=== PATIENT | female | born 1980 | race Two or more races ===

== ENCOUNTER 2024-07-15 08:40 | Emergency (ER) | payer MEDICAID, SELFPAY ==
[2024-07-15 09:07] VITALS: BP 113/75; PULSE 100; RESP 19; TEMP 37.4; O2SAT 99; BMI 31.1
--- NOTE | 2024-07-15 09:41 | EDNOTE_ITS ---
ED Skin Abcess FB-RME/HPI General Chief complaint: Skin/Abscess/Foreign Body Stated complaint: ABSCESS TO BUTTOCKS Time Seen by Provider: 07/15/24 09:02 Arrival date/time: 07/15/24 08:40 Limitations: no limitations RME / HPI RME / HPI narrative: 43-year-old female presents for evaluation of left-sided buttock pain. Patient reports persistent abscess at her left perirectal area for which she has been treated with x 3 rounds of antibiotics. She is currently on her second course of Kelfex following x1 course of Doxy x2 months ago. Patient reports intermittently taking sitz bath's at a friends house, which she states improves her symptoms. Patient denies fever, chills, abdominal pain, nausea, vomiting, chest pain, shortness of breath. MD complaint: abscess/boil Onset (ago): week(s) Tetanus up to date: yes Location: buttocks Severity: moderate Related Data Home Medications ?Medication ?Instructions ?Recorded ?Confirmed glimepiride 1 mg tablet (Amaryl) 1 mg PO QDAY #0 tabs 01/01/17 11/11/19 sitagliptin phosphate 100 mg 100 mg PO QDAY #0 tabs 01/01/17 11/11/19 tablet (Januvia) insulin glargine 100 unit/mL (3 80 unit subcut QDAY 10/08/18 11/11/19 mL) subcutaneous pen (Basaglar KwikPen U-100 Insulin) Previous Rx's ?Medication ?Instructions ?Recorded clindamycin HCl 300 mg capsule 300 mg PO TID 7 days #21 caps 07/15/24 ibuprofen 600 mg tablet 600 mg PO TID PRN pain #14 tabs 07/15/24 metronidazole 500 mg tablet 500 mg PO Q8H 7 days #21 tabs 07/15/24 Allergies Allergy/AdvReac Type Severity Reaction Status Date / Time pioglitazone [From Actos] Allergy Severe Swelling Verified 07/15/24 08:41 of Lip/Tongue/Throat latex Allergy Intermediate Itching Verified 07/15/24 08:41 metformin Allergy Intermediate Swelling Verified 07/15/24 08:41 Review of Systems Constitutional Constitutional: Denies chills, Denies excessive sweating, Denies fever(s), Denies night sweats and Denies weakness ENT Ears, Nose, Mouth, and Throat: Denies neck pain Cardiovascular Cardiovascular: Denies chest pain and Denies dyspnea Respiratory Respiratory: Denies cough and Denies dyspnea Gastrointestinal Gastrointestinal: Denies nausea and Denies vomiting Genitourinary Genitourinary: Denies dysuria and Denies hematuria Musculoskeletal Musculoskeletal: Denies back pain, Denies myalgias, Denies neck pain, Denies numbness and Denies tingling Integumentary/Breasts Skin/Breast: Reports change in pigmentation (Erythematous.), Reports furuncle (Perirectal lesion) and Reports skin pain Neurologic Neurologic: Denies numbness, Denies tingling and Denies weakness Endocrine Endocrine: Denies excessive sweating Past Medical History Past Medical History NEUROLOGIC: Negative Neurological Disorders CARDIAC: Positive Hypertension; Negative Cardiac Disorders or Congestive Heart Failure RESPIRATORY: Negative Chronic Obstructive Pulmonary Disease (COPD) or Asthma GASTROINTESTINAL: Positive Gastrointestinal Disorders and Gastroesophageal Reflux Disease GENITOURINARY: Negative Genitourinary Disorders or Renal Disease REPRODUCTIVE: Negative Pelvic Inflammatory Disease MUSCULOSKELETAL: Negative Musculoskeletal Disorders ENDOCRINE: Positive Endocrine Disorders and Diabetes Mellitus Type 2; Negative Diabetes Mellitus Type 1 HEMATOLOGIC: Positive Blood Disorders and Anemia; Negative Sickle Cell Disease OTHER HISTORY: Negative Autoimmune Disease, Anesthesia Reactions, Organ Transplant, MRSA or Clostridium Difficile Family History FAMILY HISTORY: Positive Family Cardiac Disorders; Negative Family Psychiatric Problems, Family Respiratory Disorders or Family Gastrointestinal Problems Surgical History SURGICAL: Positive Abdominal Surgery; Negative Cardiac Surgery, Ear Surgery, Nephrectomy, Joint Replacement, Neurologic Surgery, Mastectomy or Organ Transplant Social History SMOKING STATUS: Never smoker SUBSTANCE USE: does not use ED Exam General Limitations: Present no limitations General appearance: Present alert and in no apparent distress Head Head exam: Present atraumatic and normocephalic Eye Eye exam: Present normal appearance and EOMI ENT ENT exam: Present mucous membranes moist and normal external ear exam Neck Neck exam: Present normal inspection and full ROM Chest Chest inspection: Present normal inspection and symmetric chest wall rise Respiratory Respiratory exam: Present normal lung sounds bilaterally; Absent respiratory distress Cardiovascular Cardiovascular exam: Present regular rate and +S1 Abdominal Exam Abdominal exam: Present soft; Absent distention External exam: Present other (Erythema right perirectal region.) Extremities Exam Extremities exam: Present normal inspection and full ROM Back Exam Back exam: Present normal inspection and full ROM Neurological Exam Neurological exam: Present alert and normal gait Psychiatric Psychiatric exam: Present normal affect Expanded Skin Exam Type of lesion: Present abscess (Right sided perirectal abscess with surrounding erythema and tenderness to palpation. Indurated. No area of fluctuance.) Course Quality Measures none Orders Category Date Time Status Clindamycin [Cleocin] Med 07/15/24 09:34 Discontinued 300 mg PO X1 ONE Ketorolac Inj [Toradol Inj] Med 07/15/24 09:34 Discontinued 30 mg IM X1 ONE cefTRIAXone [Rocephin] 500 mg Med 07/15/24 09:43 Discontinued Lidocaine 1% 20 ml [Xylocaine 1% 20 ML] 1 ml IM X1 Vital Signs Vital signs: Vital Signs Temperature 99.4 F 07/15/24 09:07 Pulse Rate 100 07/15/24 09:07 Respiratory Rate 19 07/15/24 09:07 Blood Pressure 113/75 07/15/24 09:07 Pulse Oximetry (%) 99 07/15/24 09:07 Oxygen Delivery Method Room Air 07/15/24 09:07 Skin / Abscess / Foreign Body MDM Narrative MDM Narrative:: 43-year-old female presents for evaluation of perianall abscess. Patient has been on multiple courses of antibiotics, pointing towards possible antibiotic resistance. Vital signs significant for borderline tachycardia and fever. Physical exam showed indurated, erythematous perianal lesion without fluctuance. No crepitus and patient nontoxic-appearing, therefore less concern for gangrenous infection at this time. Given physical exam today incision changed was not performed using shared decision making with the patient as no area of fluctuant palpated. Patient nontoxic-appearing and does not meet SIRS criteria, therefore low concern for sepsis at this time. I discussed with the patient that she may require surgical debridement if her symptoms do not improve. Ultimately she was discharged on clindamycin and metronidazole for for perirectal abscess with plan to follow-up with her primary care on Thursday. Strict return precautions were provided. Patient data External records reviewed:: [facility] previous records Clinical information provided by:: patient Social determinants that could affect healthcare access:: none Patient has the following chronic illnesses:: Recurrent perirectal abscess, diabetes. How is presenting disease/condition affected by chronic disease/condition?: exacerbated by Evaluation data The following diagnostics were reviewed and interpreted by me:: other (specify) Lab and/or radiology exams considered but not ordered:: Considered not ordered. Interpretation Summary: Considered not ordered. Medications / Prescriptions Medications or Prescriptions considered but not ordered:: Rx given. Medication administrations:: Medication Administration History Discontinued Medications Clindamycin HCl (Clindamycin 150 Mg Capsule) 300 mg PO X1 ONE Stop: 07/15/24 09:35 Last Admin: 07/15/24 09:43 Dose: 300 mg Documented By: DIRK Ceftriaxone Sodium 500 mg/ (Lidocaine HCl 1 ml) 0 mg IM X1 ONE Stop: 07/15/24 09:44 Last Admin: 07/15/24 10:00 Dose: 500 mg Documented By: DIRK Ketorolac Tromethamine (Ketorolac Inj 60 Mg/2 Ml Vial) 30 mg IM X1 ONE Stop: 07/15/24 09:35 Last Admin: 07/15/24 09:42 Dose: 30 mg Documented By: DIRK Rx given. Consultations Consultation(s) initiated? (list below): No Diagnosis Skin/Abscess Differential Diagnosis: abscess of skin or subcutaneous tissue, cellulitis, contact dermatitis and other Most likely diagnosis given after review of the tests above:: perianal abcess. Admission Indicated Admission indicated?: not indicated Admission Request Was there a request for admission?: No Disposition Plan Disposition Plan: Discharge Discharge Attestation Discharge Attestation: The patient and all family members were given an opportunity to ask questions and understood the discharge instructions. Discharge instructions specifically effects, indications for sooner follow up or return to the emergency department, and the expected course of current diagnosis. Patient condition: Stable Discharge Plan Plan Patient Disposition: HOME (Self Care) Disposition Comment: stable Prescriptions/Referrals Prescriptions/Med Rec: New clindamycin HCl 300 mg capsule 300 mg PO TID 7 Days Qty: 21 0RF metronidazole 500 mg tablet 500 mg PO Q8H 7 Days Qty: 21 0RF ibuprofen 600 mg tablet 600 mg PO TID PRN (Reason: pain) Qty: 14 0RF No Action glimepiride [Amaryl] 1 MG tablet 1 mg PO QDAY Qty: 0 Januvia 100 MG tablet 100 mg PO QDAY Qty: 0 Basaglar KwikPen U-100 Insulin 100 unit/mL (3 mL) Insulin Pen 80 unit SUBCUT QDAY Problem List Clinical Impression: Cellulitis, Perianal abscess Patient/Caregiver Discharge Instructions Other Activity Instructions:: Stop Keflex. Start clindamycin and metronidazole 3 times daily for the next x 7 days. Use bedpan every 6 hours for sitz bath. Follow-up with primary care within the next 3 to 4 days for reevaluation. Education Materials: Understanding Perianal Abscess, ED Abscess Antibiotic ..., ED ABSCESS [facility]-Anal Abx only Print Language: Moz[place]ican Stand Alone Forms: Cande Award Info., Work/School Release, Patient Portal Info Letter PA/BANQUET ATTENDANT Supervising Physician PA/BANQUET ATTENDANT Supervising Physician: Dr. Reid
[2024-07-15] MEDS: KETOROLAC INJ 60 MG/2 ML VIAL 30 MG IM (09:42)
[2024-07-15] MEDS: CLINDAMYCIN 150 MG CAPSULE 300 MG PO (09:43)
[2024-07-15] MEDS: cefTRIAXone 500 MG, LIDOCAINE 1% 20 ML 1 ML IM (10:00)
== END 2024-07-15 10:04 | disposition home or self-care (01) ==
LOC: SERX 09:50
PROVIDERS: Emergency Provider Emergency Medicine; PCP Physician Assistant
DX: K61.0 Anal abscess (principal)
CPT/HCPCS: 96372; 99283; J0696; J1885; J3490; A9270

== ENCOUNTER 2024-07-20 13:14 | Inpatient (IN) | payer MEDICAID, SELFPAY ==
[2024-07-20] VITALS (16 sets, daily range): BP systolic 126–154; BP diastolic 68–88; PULSE 88–104; RESP 8–98; TEMP 36.6–37.2; O2SAT 97–100; BMI 29.9; BMI 28.3
--- NOTE | 2024-07-20 13:46 | PD.EDRME ---
Rapid Medical Screening Exam RME Arrival date/time: 07/20/24 13:14 43-year-old female who states has been noncompliant with her diabetes medication presents emergency department complains of infection to her buttock Chief Complaint: Nausea/Vomiting/Diarrhea Time Seen by Provider: 07/20/24 13:31 Vital signs: Vital Signs Temperature 98.5 F 07/20/24 13:37 Pulse Rate 100 07/20/24 13:37 Respiratory Rate 18 07/20/24 13:37 Blood Pressure 126/70 07/20/24 13:37 Pulse Oximetry (%) 99 07/20/24 13:37 Oxygen Delivery Method Room Air 07/20/24 13:37
[2024-07-20] MEDS: KETOROLAC INJ 30 MG/ML VIAL IM (13:49)
[2024-07-20] MEDS: ONDANSETRON ODT 4 MG TABRAP PO (13:49)
[2024-07-20] MEDS: HYDROcodone/APAP 5/325 TABLET 1 TAB PO (13:49)
[2024-07-20 14:21] LABS: Lactate (Lactic Acid) 2.4 mMol/L (0.4-2.0)
[2024-07-20 14:24] LABS: Basophils # (Auto) 0.1 Thou/mm3 (0.0-0.2); Basophils % (Auto) 0 % (0-2.5); Eosinophils % (Auto) 0 % (0-10); Hematocrit 40.1 % (36.0-46.0); Hemoglobin 13.4 g/dL (12.0-16.0); Immature Granulocytes % (Auto) 1 % (0-0); Immature Granulocytes Auto 0.23 Thou/mm3 (0.00-0.00); Lymphocytes # (Auto) 1.5 Thou/mm3 (1.0-4.8); Lymphocytes % (Auto) 8 % (10-50); Mean Corpuscular HGB Conc 33.4 g/dl (31.0-37.0); Mean Corpuscular Hemoglobin 29.3 pg (25.0-35.0); Mean Corpuscular Volume 88 fL (80-100); Monocytes % (Auto) 5 % (0-12); Neutrophils # (Auto) 15.7 Thou/mm3 (1.8-7.7); Neutrophils % (Auto) 85 % (37-80); Nucleated Red Blood Cell % 0 /100 WBC (0); Platelet Count 397 Thou/mm3 (140-440); RDW Standard Deviation 37.2 fL (36.4-46.3); Red Blood Count 4.58 Miln/mm3 (4.00-5.20); White Blood Count 18.4 Thou/mm3 (3.6-11.0)
[2024-07-20 14:55] LABS: Alanine Aminotransferase 10 U/L (10-49); Albumin, Serum 4.1 gm/dL (3.5-5.0); Albumin/Globulin Ratio 1.1 (1.2-2.2); Alkaline Phosphatase 115 U/L (46-116); Anion Gap 21 (7-16); BUN/Creatinine Ratio 10 Ratio (12-20); Bilirubin,Total 0.4 mg/dL (0.3-1.2); Blood Urea Nitrogen 12 mg/dL (9-23); Calcium 9.5 mg/dL (8.3-10.6); Calcium (Corrected) 9.5 mg/dL (8.5-10.1); Chloride 87 mMol/L (98-107); Creatinine (Component) 1.2 mg/dL (0.6-1.3); Estimated Creatinine Clearance 65.5 mL/min (>60); Globulin 3.6 gm/dL (2.3-3.5); Potassium 3.7 mMol/L (3.4-5.1); Procalcitonin 0.62 ng/ml (0.0-0.49); Sodium 125 mMol/L (136-145); Total Protein 7.7 gm/dL (5.7-8.2); eGFR 57 See Note
[2024-07-20 15:18] LABS: Aspartate Amino Transferase 10 U/L (0-34); Osmolality,Calculated 275 (275-295)
[2024-07-20 15:21] LABS: Glucose 527 mg/dL (74-106)
[2024-07-20 15:47] LABS: Collection Type, Urine Clean Catch
--- NOTE | 2024-07-20 15:51 | XR_ITS ---
Examination: CT pelvis with intravenous contrast. 2-D sagittal and coronal reconstructions. Date and time of exam:July 20, 2024 1723 hrs. Indications: Vomiting today, redness swelling and pain above the left buttock region beginning 4 days ago CTDI: vol (mGy) :9.87 DLP: (mGycm) : 347 Technique: Multiple 3 mm axial sections of the pelvis have been obtained with the 64 slice high resolution scanner. Intravenous administration 60 cc [id number] 2-D sagittal and coronal reconstructions. Low dose protocols were performed. One or more of the following dose reduction techniques were used; automated exposure control, adjustment of the mA and/or KV according to patient size, use of iterative reconstruction technique. Findings: Mildly fluid distended small bowel loops Intrauterine device satisfactory position Bladder intact No free fluid in the pelvis Left inferior posterior perianal abscess, axial image 130 coronal image 108, sagittal image 107, measuring 14 x 16 x 18 mm which communicates with fistulous tract to the anus Extensive adjacent cellulitis in the subcutaneous fat in the buttock region on the left extending to the intergluteal fold Negative for osteomyelitis Impression: 14 x 16 x 18 mm left inferior posterior perianal abscess with extensive cellulitis in the buttock region on the left
[2024-07-20] MEDS: SODIUM CHLORIDE 0.9% 1000 ML 1,000 ML 999 ML IV ×3 (15:53→16:41)
--- NOTE | 2024-07-20 15:56 | EDNOTE_ITS ---
ED General RME/HPI General Chief complaint: Nausea/Vomiting/Diarrhea Stated complaint: Vomiting X 4 days, abscess to buttocks Time Seen by Provider: 07/20/24 13:31 Arrival date/time: 07/20/24 13:14 RME / HPI RME / HPI narrative: RME: 07/20/24 13:14 43-year-old female who states has been noncompliant with her diabetes medication presents emergency department complains of infection to her buttock YAQUELIN HPI: 43-year-old female with a history of insulin-dependent diabetes is also been battling an abscess it has been growing on her left buttocks presents to the emergency department with generalized malaise as she has also been out of insulin for the last 2 weeks. Her blood sugars are unregistered well at home therefore she comes to emergency department. She was seen in the emergency department approximately 4 to 5 days ago and was told at this point the abscess was too hard to drain and was discharged on clindamycin and metronidazole. Related Data Home Medications ?Medication ?Instructions ?Recorded ?Confirmed glimepiride 1 mg tablet (Amaryl) 1 mg PO QDAY #0 tabs 01/01/17 11/11/19 sitagliptin phosphate 100 mg 100 mg PO QDAY #0 tabs 01/01/17 11/11/19 tablet (Januvia) insulin glargine 100 unit/mL (3 80 unit subcut QDAY 10/08/18 11/11/19 mL) subcutaneous pen (Basaglar KwikPen U-100 Insulin) Previous Rx's ?Medication ?Instructions ?Recorded clindamycin HCl 300 mg capsule 300 mg PO TID 7 days #21 caps 07/15/24 ibuprofen 600 mg tablet 600 mg PO TID PRN pain #14 tabs 07/15/24 metronidazole 500 mg tablet 500 mg PO Q8H 7 days #21 tabs 07/15/24 Allergies Allergy/AdvReac Type Severity Reaction Status Date / Time pioglitazone [From Actos] Allergy Severe Swelling Verified 07/15/24 08:41 of Lip/Tongue/Throat latex Allergy Intermediate Itching Verified 07/15/24 08:41 metformin Allergy Intermediate Swelling Verified 07/15/24 08:41 Review of Systems Review of Systems Systems Reviewed: All systems reviewed, normal except as documented ED Exam Narrative Physical exam: GENERAL APPEARANCE: AxOx4, moderately ill-appearing, moderate distress laying on her right side unable to lay flat due to the pain over her left gluteus HEENT: NC, AT. Mucous membranes dry. EOMI, clear conjunctiva, oropharynx clear. NECK: Supple without lymphadenopathy. No stiffness or restricted ROM. HEART: Normal rate and regular rhythm, normal S1/S1, no m/r/g LUNGS: CTAB, moving air well. No crackles or wheezes are heard. ABDOMEN: Soft, nontender, nondistended with good bowel sounds heard. BACK: No midline C/T/L spine pain or deformity, No CVAT, no obvious deformity. NEUROLOGICAL: Grossly nonfocal. Alert and oriented, moving all 4 extremities. CN not formally tested but appear grossly intact. Observed to ambulate with normal gait. Skin: Warm and dry without any rash, large area of induration over the left inferior gluteus extending towards the perineum and the labia majora on the left side. Skin is red, warm, and thickened. There are several patches of necrosis but also an opening/dehiscence approximately 3 cm from the anus with active drainage of yellow-green purulence. The purulence is foul-smelling. Course Course Course Narrative: Patient made clinically stable in the emergency department without acute decompensation. Reviewed all results, analysis, treatment plan and patient was amenable to admission. Patient admitted to the ICU in guarded condition. Quality Measures none Orders Category Date Time Status Bedside Blood Glucose STAT Care 07/20/24 16:[address] Screening NOW Care 07/20/24 15:51 Active Cutting And Creasing Press Operator STAT Care 07/20/24 16:45 Completed DKA Protocol QSHIFT Care 07/20/24 16:45 Completed Intake and Output Routine Care 07/20/24 16:45 Ordered Notify provider NEEDED Care 07/20/24 16:45 Active Consult to General Surgery Stat Cons 07/20/24 15:47 Ordered Consult to General Surgery Stat Cons 07/20/24 17:14 Ordered Referral Registered Dietitian Routine Cons 07/20/24 16:[address] pelvis w con Stat Exams 07/20/24 15:51 Completed Arterial Blood Gas Stat Lab 07/20/24 17:50 Completed Beta HCG,Quantitative Stat Lab 07/20/24 14:00 Completed Beta Hydroxybutyrate Stat Lab 07/20/24 16:57 Completed Blood Culture (Lab) Stat Lab 07/20/24 14:00 Received CBC Stat Lab 07/20/24 13:42 Completed CBC Stat Lab 07/20/24 16:57 Completed Comprehensive Metabolic Panel Stat Lab 07/20/24 14:00 Completed Comprehensive Metabolic Panel Stat Lab 07/20/24 16:57 Completed HCG Qualitative,Urine Stat Lab 07/20/24 15:40 Completed Lactate (Lactic Acid) Stat Lab 07/20/24 14:00 Completed Lactate (Lactic Acid) Stat Lab 07/20/24 16:57 Completed Lactic Acid, 3 HR Stat Lab 07/20/24 20:14 Completed Magnesium Stat Lab 07/20/24 16:57 Completed Misc Send Out* Stat Lab 07/20/24 16:57 Received Phosphorous Stat Lab 07/20/24 16:57 Completed Procalcitonin Stat Lab 07/20/24 14:00 Completed Urinalysis Stat Lab 07/20/24 15:40 Completed Urine Culture Stat Lab 07/20/24 15:40 Received Dextrose 50% Syr [D50w Syringe Abboject] Med 07/20/24 16:45 Active 25 ml IV PRNMRX1 PRN HYDROcodone*/APAP 5/325 [Fred 5/325] Med 07/20/24 13:42 Discontinued 1 tab PO X1 ONE Insulin Reg 100 Units/100 ml [Myxredlin] Med 07/20/24 15:23 Active 100 unit in 100 ml IV 0.1 unit/kg/hr Ketorolac Inj [Toradol Inj] Med 07/20/24 13:42 Discontinued 30 mg IM X1 ONE Morphine Inj Med 07/20/24 16:15 Discontinued 6 mg IV X1 ONE Ondansetron Odt [Zofran Odt] Med 07/20/24 13:42 Discontinued 4 mg PO X1 ONE Piper/Tazo 3.375 gm [Zosyn] Med 07/20/24 17:13 Discontinued 3.375 gm in 50 ml IV X1 Ringers Lactated 1000 ml [Lactated Ringers] 1,000 ml Med 07/20/24 16:45 Active Pot Chl Additive [KCl Additive] 20 meq IV 250 mls/hr Sodium Chloride 0.9% 1000 ml [Ns] 1,000 ml Med 07/20/24 15:23 Discontinued IV 999 mls/hr Sodium Chloride 0.9% 1000 ml [Ns] 1,000 ml Med 07/20/24 15:23 Discontinued IV 999 mls/hr Sodium Chloride 0.9% 1000 ml [Ns] 1,000 ml Med 07/20/24 16:37 Discontinued IV 999 mls/hr Vancomycin Inj 1,000 mg Med 07/20/24 15:47 Discontinued Sodium Chloride 0.9% 250 ml [Ns] 250 ml IV X1 Vital Signs Vital signs: Vital Signs Temperature 98.5 F 07/20/24 13:37 Pulse Rate 100 07/20/24 13:37 Respiratory Rate 18 07/20/24 13:37 Blood Pressure 126/70 07/20/24 13:37 Pulse Oximetry (%) 99 07/20/24 13:37 Oxygen Delivery Method Room Air 07/20/24 13:37 SpO2 99% on room air, not hypoxic MDM Patient data External records reviewed:: [facility] previous records (I reviewed ED visit on 07/15/2024) Clinical information provided by:: patient Social determinants that could affect healthcare access:: none Patient has the following chronic illnesses:: IDDM How is presenting disease/condition affected by chronic disease/condition?: e xacerbated by Evaluation data The following diagnostics were reviewed and interpreted by me:: lab results Lab and/or radiology exams considered but not ordered:: None Interpretation Summary: As noted above Medications Medications considered but not ordered:: None Medication administrations:: Medication Administration History Acetaminophen (Acetaminophen 325 Mg Tablet) 650 mg PO Q4HR PRN PRN Reason: PAIN SCALE 1-3 (mild Stop: 08/19/24 17:34 Acetaminophen (Acetaminophen Supp 650 Mg Supp) 650 mg WA Q4HR PRN PRN Reason: PAIN SCALE 1-3 (mild Stop: 08/19/24 17:34 Al Hydrox/Mg Hydrox/Simethicone (Mg Hyd/Al Hyd/Benjamin (Maalox Reg) Susp 30 Ml Udc) 30 ml PO Q4HR PRN PRN Reason: Heartburn or Upset Stomach Stop: 08/19/24 17:34 Dextrose (Dextrose 50%-Water Inj 50 Ml Syringe) 25 ml IV PRNMRX1 PRN PRN Reason: Blood Sugar - Low Dextrose (Dextrose 50%-Water Inj 50 Ml Syringe) 25 ml IV PRNMRX1 PRN PRN Reason: Blood Sugar - Low Heparin Sodium (Porcine) (Heparin Sod Inj 5000 Unit/Ml Vial) 5,000 unit SC BID FRANDY Stop: 08/03/24 20:59 Last Admin: 07/20/24 20:09 Dose: 5,000 unit Documented By: CLT Co-signed By: KEIRY Insulin Human Regular (Myxredlin) 100 unit in 100 mls @ 8.437 mls/hr IV .[id number] PRN; Protocol PRN Reason: PER PROTOCOL Stop: 08/19/24 15:22 Last Titration: 07/21/24 06:52 Dose: 0 unit/kg/hr, 0 mls/hr Documented By: CLT Co-signed By: GE Titration: 07/21/24 06:00 Dose: 0.1 unit/kg/hr, 8.437 mls/hr Documented By: CLT Co-signed By: AD Titration: 07/21/24 05:00 Dose: 0.05 unit/kg/hr, 4.218 mls/hr Documented By: CLT Co-signed By: SA Titration: 07/21/24 04:00 Dose: 0.1 unit/kg/hr, 8.437 mls/hr Documented By: CLT Co-signed By: AD Titration: 07/21/24 03:00 Dose: 0.05 unit/kg/hr, 4.218 mls/hr Documented By: CLT Co-signed By: AD Titration: 07/21/24 02:00 Dose: 0.1 unit/kg/hr, 8.437 mls/hr Documented By: CLT Co-signed By: AD Titration: 07/21/24 01:00 Dose: 0.05 unit/kg/hr, 4.218 mls/hr Documented By: CLT Co-signed By: BB Titration: 07/21/24 00:00 Dose: 0.1 unit/kg/hr, 8.437 mls/hr Documented By: CLT Co-signed By: BB Titration: 07/20/24 23:37 Dose: 0.1 unit/kg/hr, 8.437 mls/hr Documented By: CLT Co-signed By: BB Titration: 07/20/24 23:00 Dose: 0 unit/kg/hr, 0 mls/hr Documented By: CLT Co-signed By: AD Titration: 07/20/24 22:00 Dose: 0.05 unit/kg/hr, 4.218 mls/hr Documented By: CLT Co-signed By: AD Titration: 07/20/24 21:00 Dose: 0.05 unit/kg/hr, 4.218 mls/hr Documented By: CLT Co-signed By: CMN Titration: 07/20/24 20:00 Dose: 0.1 unit/kg/hr, 8.437 mls/hr Documented By: CLT Co-signed By: CMN Titration: 07/20/24 19:00 Dose: 0.1 unit/kg/hr, 8.437 mls/hr Documented By: CLT Co-signed By: CMN Titration: 07/20/24 18:00 Dose: 0.1 unit/kg/hr, 8.437 mls/hr Documented By: EF Co-signed By: GRANT Titration: 07/20/24 17:00 Dose: 0.1 unit/kg/hr, 8.437 mls/hr Documented By: EF Co-signed By: KM Admin: 07/20/24 16:00 Dose: 0.1 unit/kg/hr, 8.437 mls/hr Documented By: EF Co-signed By: ED Potassium Chloride 20 meq/ (Lactated Ringer's) 1,010 mls @ 250 mls/hr IV .Q4H3M PRN PRN Reason: K LEVEL 3.3 TO 5.3mM/L Stop: 08/19/24 16:44 Last Infusion: 07/21/24 06:00 Dose: 250 mls/hr Documented By: Infusion: 07/21/24 05:00 Dose: 0 mls/hr Documented By: Infusion: 07/21/24 04:00 Dose: 250 mls/hr Documented By: Infusion: 07/20/24 23:33 Dose: 0 mls/hr Documented By: Infusion: 07/20/24 23:00 Dose: 250 mls/hr Documented By: Infusion: 07/20/24 20:00 Dose: 0 mls/hr Documented By: Admin: 07/20/24 18:06 Dose: 250 mls/hr Documented By: EF Potassium Chloride (Kcl Ivpb) 10 meq in 100 mls @ 100 mls/hr IV .Q1H PRN PRN Reason: IF POTASSIUM LESS THAN 3.3 Stop: 08/19/24 17:34 Last Admin: 07/21/24 00:54 Dose: 100 mls/hr Documented By: Infusion: 07/20/24 23:40 Dose: Infused Documented By: Admin: 07/20/24 22:40 Dose: 100 mls/hr Documented By: CLT Magnesium Sulfate (Magnesium Sulfate Ivpb) 2 gm in 50 mls @ 25 mls/hr IV .Q2H PRN PRN Reason: PER DKA PROTOCOL Stop: 08/19/24 17:34 Last Infusion: 07/20/24 21:00 Dose: Infused Documented By: Admin: 07/20/24 18:26 Dose: 25 mls/hr Documented By: EF Dextrose/Lactated Ringer's (D5-Lr) 1,000 mls @ 250 mls/hr IV .Q4H PRN PRN Reason: PER PROTOCOL Stop: 08/19/24 17:34 Lactated Ringer's (Lactated Ringers) 1,000 mls @ 250 mls/hr IV .Q4H PRN PRN Reason: PER PROTOCOL Stop: 07/21/24 17:34 Potassium Chloride 40 meq/ (Lactated Ringer's) 1,020 mls @ 250 mls/hr IV .Q4H5M PRN PRN Reason: K LEVEL < 3.3 mM/L Stop: 08/19/24 17:34 Last Infusion: 07/21/24 04:00 Dose: 0 mls/hr Documented By: Infusion: 07/21/24 02:00 Dose: 250 mls/hr Documented By: Infusion: 07/21/24 01:05 Dose: 0 mls/hr Documented By: Admin: 07/20/24 23:29 Dose: 250 mls/hr Documented By: CLT Potassium Chloride 40 meq/ (Dextrose/Lactated Ringer's) 1,020 mls @ 250 mls/hr IV .Q4H5M PRN PRN Reason: K LEVEL < 3.3mM/L Stop: 08/19/24 17:34 Last Infusion: 07/21/24 02:00 Dose: 0 mls/hr Documented By: Admin: 07/21/24 01:04 Dose: 250 mls/hr Documented By: CLT Potassium Cl/Dextrose/Lact Ringer's (Kcl 20 Meq/L In D5-Lr) 20 meq in 1,000 mls @ 250 mls/hr IV .Q4H PRN PRN Reason: K LEVEL 3.3 TO 5.3 mM/L Stop: 08/19/24 17:34 Last Infusion: 07/21/24 06:00 Dose: 0 mls/hr Documented By: Infusion: 07/21/24 05:00 Dose: 250 mls/hr Documented By: Infusion: 07/21/24 04:00 Dose: 0 mls/hr Documented By: Infusion: 07/21/24 03:00 Dose: 250 mls/hr Documented By: Infusion: 07/20/24 23:00 Dose: 0 mls/hr Documented By: Admin: 07/20/24 21:05 Dose: 250 mls/hr Documented By: CLT Potassium Chloride (Kcl Ivpb) 10 meq in 100 mls @ 50 mls/hr IV PRN PRN PRN Reason: K LEVEL 3.3 to 5.3 & BG > 200 Stop: 08/19/24 17:34 Potassium Phosphate (Pot Phos 15 Mmol In Ns 250 Ml) 15 mmol in 250 mls @ 62.5 mls/hr IV PRN PRN PRN Reason: Phosphate <= 1mg/dL Stop: 08/19/24 17:34 Sodium Phosphate 15 mmol/ (Sodium Chloride) 255 mls @ 62.5 mls/hr IV .Q4H5M PRN PRN Reason: Phosphate <= 1mg/dL and K> than 5.3 Stop: 08/19/24 17:34 Piperacillin Sod/Tazobactam (Sod 3.375 gm/ Sodium Chloride) 100 mls @ 200 mls/hr IV Q6HR FRANDY Stop: 07/28/24 00:00 Last Admin: 07/21/24 05:13 Dose: 200 mls/hr Documented By: Infusion: 07/21/24 00:35 Dose: Infused Documented By: Admin: 07/21/24 00:05 Dose: 200 mls/hr Documented By: CLT Vancomycin/Sodium Chloride (Vancomycin/Ns 1 Gm Ivpb) 200 mls @ 120 mls/hr IV Q8HR FRANDY; Protocol Stop: 07/28/24 06:44 Last Admin: 07/21/24 07:50 Dose: Not Given Documented By: RM Non-Admin Reason: med not avail/rescheduled Vancomycin/Sodium Chloride (Vancomycin/Ns 1 Gm Ivpb) 200 mls @ 120 mls/hr IV X1 ONE; Protocol Stop: 07/21/24 10:39 Insulin Human Lispro (Insulin Lispro (Admelog) 1 Unit/0.01 Ml Unit) 0 unit SC Q6HR FRANDY; Protocol Stop: 08/20/24 11:59 Magnesium Hydroxide (Milk Of Magnesia Susp 30 Ml Udc) 30 ml PO QDAY PRN PRN Reason: CONSTIPATION Stop: 08/19/24 17:34 Metoclopramide HCl (Metoclopramide Inj 5 Mg/Ml Vial 2 Ml) 10 mg IVP Q6HR PRN; Protocol PRN Reason: Nausea Stop: 08/19/24 18:28 Last Admin: 07/21/24 02:02 Dose: 10 mg Documented By: Admin: 07/20/24 18:38 Dose: 10 mg Documented By: EF Morphine Sulfate (Morphine Sulf Inj 10 Mg/Ml Vial) 2 mg IVP Q4H PRN PRN Reason: PAIN SCALE 7-10 (Severe Stop: 07/25/24 17:34 Last Admin: 07/21/24 02:03 Dose: 2 mg Documented By: CLT Nitroglycerin (Nitroglycerin 0.4 Mg Subl Btl #25) 0.4 mg SL Q5MIN PRN PRN Reason: CHEST PAIN Ondansetron HCl (Ondansetron Inj 2 Mg/Ml Inj 2 Ml) 4 mg IV Q6HR PRN PRN Reason: NAUSEA OR VOMITING Stop: 08/19/24 17:34 Last Admin: 07/20/24 21:35 Dose: 4 mg Documented By: CLT Pharmacy Consult (Vancomycin Pharmacy To Dose 1 Each Each) 1 each IV QDAY FRANDY Stop: 08/20/24 08:59 Sodium Bicarbonate (Sodium Bicarb Inj 8.4% Syr 50 Ml Syringe) 50 ml IV PRN PRN PRN Reason: For ph <= to 7.0 Stop: 08/19/24 17:34 Discontinued Medications Hydrocodone Bitart/Acetaminophen (Hydrocodone/Apap 5/325 Tablet) 1 tab PO X1 ONE Stop: 07/20/24 13:43 Last Admin: 07/20/24 13:49 Dose: 1 tab Documented By: OA Sodium Chloride (Ns) 1,000 mls @ 999 mls/hr IV .Q1H1M ONE Stop: 07/20/24 16:23 Last Infusion: 07/20/24 16:55 Dose: Infused Documented By: Admin: 07/20/24 15:54 Dose: 999 mls/hr Documented By: EF Sodium Chloride (Ns) 1,000 mls @ 999 mls/hr IV .Q1H1M ONE Stop: 07/20/24 16:23 Last Infusion: 07/20/24 16:54 Dose: Infused Documented By: Admin: 07/20/24 15:53 Dose: 999 mls/hr Documented By: EF Vancomycin HCl 1,000 mg/ (Sodium Chloride) 250 mls @ 150 mls/hr IV X1 ONE Stop: 07/20/24 17:26 Last Infusion: 07/20/24 17:50 Dose: Infused Documented By: Admin: 07/20/24 16:13 Dose: 150 mls/hr Documented By: EF Sodium Chloride (Ns) 1,000 mls @ 999 mls/hr IV .Q1H1M ONE Stop: 07/20/24 17:37 Last Infusion: 07/20/24 17:49 Dose: Infused Documented By: Admin: 07/20/24 16:41 Dose: 999 mls/hr Documented By: EF Piperacillin/Tazobactam/Dextrose (Zosyn) 3.375 gm in 50 mls @ 100 mls/hr IV X1 ONE Stop: 07/20/24 17:42 Last Admin: 07/20/24 18:04 Dose: 100 mls/hr Documented By: EF Vancomycin/Sodium Chloride (Vancomycin/Ns 500 Mg Ivpb) 100 mls @ 120 mls/hr IV X1 ONE Stop: 07/20/24 19:04 Last Admin: 07/20/24 20:08 Dose: 120 mls/hr Documented By: MINDIT Insulin Glargine (Insulin Glargine (Lantus) 5 Unit/0.05 Ml (Per 5 Units)) 12 unit SC X1 ONE Stop: 07/21/24 04:50 Last Admin: 07/21/24 05:03 Dose: 12 unit Documented By: CLT Co-signed By: Insulin Glargine (Insulin Glargine (Lantus) 5 Unit/0.05 Ml (Per 5 Units)) 28 unit SC X1 ONE Stop: 07/21/24 05:12 Last Admin: 07/21/24 05:29 Dose: 28 unit Documented By: CLT Co-signed By: Insulin Human Lispro (Insulin Lispro (Admelog) 1 Unit/0.01 Ml Unit) 0 unit SC Q6HR FRANDY; Protocol Stop: 08/20/24 05:59 Ketorolac Tromethamine (Ketorolac Inj 30 Mg/Ml Vial) 30 mg IM X1 ONE Stop: 07/20/24 13:43 Last Admin: 07/20/24 13:49 Dose: 30 mg Documented By: OA Morphine Sulfate (Morphine Sulf Inj 10 Mg/Ml Vial) 6 mg IV X1 ONE Stop: 07/20/24 16:16 Last Admin: 07/20/24 16:13 Dose: 6 mg Documented By: EF Morphine Sulfate (Morphine Sulf Inj 4 Mg/Ml Vial) 1 mg IVP X1 ONE Stop: 07/21/24 04:53 Last Admin: 07/21/24 05:07 Dose: Not Given Documented By: CLT Non-Admin Reason: Cancelled by Provider Morphine Sulfate (Morphine Sulf Inj 10 Mg/Ml Vial) 1 mg IVP X1 ONE Stop: 07/21/24 05:07 Last Admin: 07/21/24 05:12 Dose: 1 mg Documented By: CLT Ondansetron HCl (Ondansetron Odt 4 Mg Tabrap) 4 mg PO X1 ONE; Protocol Stop: 07/20/24 13:43 Last Admin: 07/20/24 13:49 Dose: 4 mg Documented By: OA See above Consultations Consultation(s) initiated? (list below): Yes Consultation #1 (Physician, Specialty, Details): I spoke with surgeon Dr. Muse. Discussed patients PMHx, HPI, ED course, exam findings, labs results. He has evaluated the patient in the ED and does not believe it is qing gangrene. Time: 17:10 Consultation #2 (Physician, Specialty, Details): I spoke with circuit breaker supervisor Dr. Lee. Discussed patients PMHx, HPI, ED course, exam findings, labs, results. Requests starting the patient on Zosyn. Time: 17:17 Diagnosis Differential Diagnosis ED Complaint MDM: DKA, hyperglycemia, sepsis, cellulitis, abscess, Qing's Most likely diagnosis given after review of the tests above:: See below Admission Indicated Admission indicated?: indicated Explain why admission is indicated or not indicated:: As per narrative Admission Request Was there a request for admission?: Yes Admission Attestation Admission request attestation: Discussed case with [Dr. Lee] from critical care service regarding admission. Discussed patients ED course, exam findings, labs, and radiology results. The circuit breaker supervisor [agrees] to accept the patient for admission. Disposition Plan Disposition Plan: Admit Medical Decision Making [facility] Narrative [facility] Narrative: Ms. Benavides presents very ill with 2 critical issues. The first that she is in DKA secondary to noncompliance with her insulin for the last 2 weeks. Laboratory testing is significant for a metabolic acidosis with a significant anion gap. Her potassium returned within normal limits therefore was able to initiate an insulin drip immediately in the emergency department. She was also resuscitated aggressively with IV fluids. She will require admission to the intensive care unit for close monitoring and management of her metabolic status while she is on an insulin drip. Secondarily she has a large area of cellulitis but appears to be a draining gluteal/perianal abscess. There are also patches of necrotic tissue. The cellulitis is quite extensive and reaches even to her labia majora area medially. On examination, palpation and pressure along the perineum does not cause significant pain, I do not feel that this is consistent with a necrotizing/Qing's gangrene. General surgery was also consulted and I was bedside with Dr Monae to examine the region and we both agree this is not a picture consistent with Qing's gangrene, however she will need close wound care, debridement, and even possible further incision and drainage. He agrees to consult for definitive management of the abscess. She has been given IV antibiotics vancomycin and Zosyn for the cellulitis. Differential Diagnosis Differential Diagnosis: DKA, hyperglycemia, sepsis, cellulitis, abscess, Qing's Lab Data 07/20/24 16:57 07/21/24 04:47 Labs: Lab Results 07/20/24 07/20/24 07/20/24 Range/Units 13:42 14:00 15:40 WBC 18.4 H (3.6-11.0) Thou/mm3 RBC 4.58 (4.00-5.20) Miln/mm3 Hgb 13.4 (12.0-16.0) g/dL Hct 40.1 (36.0-46.0) % MCV 88 (80-100) fL MCH 29.3 (25.0-35.0) pg MCHC 33.4 (31.0-37.0) g/dl RDW Std Deviation 37.2 (36.4-46.3) fL Plt Count 397 (140-440) Thou/mm3 Neut % (Auto) 85 H (37-80) % Lymph % (Auto) 8 L (10-50) % [place] % (Auto) 5 (0-12) % Eos % (Auto) 0 (0-10) % Baso % (Auto) 0 (0-2.5) % Neut # (Auto) 15.7 H (1.8-7.7) Thou/mm3 Lymph # (Auto) 1.5 (1.0-4.8) Thou/mm3 [place] # (Auto) 1.0 H (0.0-0.8) Thou/mm3 Eos # (Auto) 0.0 (0.0-0.5) Thou/mm3 Baso # (Auto) 0.1 (0.0-0.2) Thou/mm3 Immature Gran # (Auto) 0.23 H (0.00-0.00) Thou/mm3 Absolute Nucleated RBC 0.00 (0.00-0.00) Thou/mm3 Immature Gran % 1 H (0-0) % Nucleated RBC % 0 (0) /100 WBC Sodium 125 L (136-145) mMol/L Potassium 3.7 (3.4-5.1) mMol/L Chloride 87 L (98-107) mMol/L Carbon Dioxide 17.0 L (20.0-31.0) mMol/L Anion Gap 21 H (7-16) BUN 12 (9-23) mg/dL Creatinine 1.2 (0.6-1.3) mg/dL Estim Creat Clear Calc 65.5 (>60) mL/min eGFR 57 L (60 - ) See Note BUN/Creatinine Ratio 10 L (12-20) Ratio Glucose 527 H* (74-106) mg/dL Estimated Ave Glu mg/dL Cancelled Hemoglobin A1c Cancelled Calculated Osmolality 275 (275-295) Lactic Acid 2.4 H (0.4-2.0) mMol/L Calcium 9.5 (8.3-10.6) mg/dL Corrected Calcium 9.5 (8.5-10.1) mg/dL Phosphorus (2.4-5.1) mg/dL Magnesium (1.6-2.6) mg/dL Total Bilirubin 0.4 (0.3-1.2) mg/dL AST 10 (0-34) U/L ALT 10 (10-49) U/L Alkaline Phosphatase 115 (46-116) U/L Total Protein 7.7 (5.7-8.2) gm/dL Albumin 4.1 (3.5-5.0) gm/dL Globulin 3.6 H (2.3-3.5) gm/dL Albumin/Globulin Ratio 1.1 L (1.2-2.2) Beta-Hydroxybutyrate/Acetoacetate (<0.6) mmol/L Procalcitonin 0.62 H (0.0-0.49) ng/ml Beta HCG, Quant 2 (<5.0) mIU/mL Ur Collection Type Clean Catch Urine Color Lt-Yellow (Lt Yel-Yel) Urine Clarity Clear (Clear/Hazy) Urine pH 5.0 (5.0-7.0) Ur Specific [place] 1.027 (1.001-1.035) Urine Protein Trace (Neg - Trace) Urine Glucose (UA) 4+ A (Negative) Urine Ketones 4+ A (Negative) Urine Blood 1+ A (Negative) Urine Nitrite Negative (Negative) Urine Bilirubin Negative (Negative) Urine Urobilinogen (Auto) Negative (0.0-1.0) mg/dL Ur Leukocyte Esterase Positive (Negative) Urine RBC 5 H (0-3) /hpf Urine WBC 13 H (0-5) /hpf Ur Squamous Epith Cells 4 (0-5) /hpf Urine Bacteria Rare (None) Hyaline Casts < 1 (0-1) /hpf Urine HCG, Qual Negative 07/20/24 Range/Units 16:57 WBC 18.1 H (3.6-11.0) Thou/mm3 RBC 4.03 (4.00-5.20) Miln/mm3 Hgb 11.9 L (12.0-16.0) g/dL Hct 34.4 L (36.0-46.0) % MCV 85 (80-100) fL MCH 29.5 (25.0-35.0) pg MCHC 34.6 (31.0-37.0) g/dl RDW Std Deviation 36.2 L (36.4-46.3) fL Plt Count 350 D (140-440) Thou/mm3 Neut % (Auto) 83 H (37-80) % Lymph % (Auto) 11 (10-50) % [place] % (Auto) 5 (0-12) % Eos % (Auto) 0 (0-10) % Baso % (Auto) 0 (0-2.5) % Neut # (Auto) 15.0 H (1.8-7.7) Thou/mm3 Lymph # (Auto) 2.0 (1.0-4.8) Thou/mm3 [place] # (Auto) 0.8 (0.0-0.8) Thou/mm3 Eos # (Auto) 0.0 (0.0-0.5) Thou/mm3 Baso # (Auto) 0.1 (0.0-0.2) Thou/mm3 Immature Gran # (Auto) 0.23 H (0.00-0.00) Thou/mm3 Absolute Nucleated RBC 0.00 (0.00-0.00) Thou/mm3 Immature Gran % 1 H (0-0) % Nucleated RBC % 0 (0) /100 WBC Sodium 128 L (136-145) mMol/L Potassium 3.3 L (3.4-5.1) mMol/L Chloride 97 L (98-107) mMol/L Carbon Dioxide 14.3 L* (20.0-31.0) mMol/L Anion Gap 17 H (7-16) BUN 10 (9-23) mg/dL Creatinine 1.0 (0.6-1.3) mg/dL Estim Creat Clear Calc 78.6 (>60) mL/min eGFR > 60 (60 - ) See Note BUN/Creatinine Ratio 10 L (12-20) Ratio Glucose 361 H D (74-106) mg/dL Estimated Ave Glu mg/dL Cancelled Hemoglobin A1c Cancelled Calculated Osmolality 271 L (275-295) Lactic Acid 1.8 (0.4-2.0) mMol/L Calcium 8.3 (8.3-10.6) mg/dL Corrected Calcium 8.7 (8.5-10.1) mg/dL Phosphorus 2.7 (2.4-5.1) mg/dL Magnesium 1.6 (1.6-2.6) mg/dL Total Bilirubin 0.4 (0.3-1.2) mg/dL AST 27 (0-34) U/L ALT 12 (10-49) U/L Alkaline Phosphatase 116 (46-116) U/L Total Protein 6.6 (5.7-8.2) gm/dL Albumin 3.5 D (3.5-5.0) gm/dL Globulin 3.1 (2.3-3.5) gm/dL Albumin/Globulin Ratio 1.1 L (1.2-2.2) Beta-Hydroxybutyrate/Acetoacetate 4.4 H (<0.6) mmol/L Procalcitonin (0.0-0.49) ng/ml Beta HCG, Quant (<5.0) mIU/mL Ur Collection Type Urine Color (Lt Yel-Yel) Urine Clarity (Clear/Hazy) Urine pH (5.0-7.0) Ur Specific [place] (1.001-1.035) Urine Protein (Neg - Trace) Urine Glucose (UA) (Negative) Urine Ketones (Negative) Urine Blood (Negative) Urine Nitrite (Negative) Urine Bilirubin (Negative) Urine Urobilinogen (Auto) (0.0-1.0) mg/dL Ur Leukocyte Esterase (Negative) Urine RBC (0-3) /hpf Urine WBC (0-5) /hpf Ur Squamous Epith Cells (0-5) /hpf Urine Bacteria (None) Hyaline Casts (0-1) /hpf Urine HCG, Qual Critical Care Time Critical Care Time Critical Care Time: Yes Total Critical Care Time (min.): 60 Attestation: Excluding billable procedures for the rapid response, analysis, management, deliberation with specialist, treatment, and documentation to vent the very possible risk of metabolic decompensation and/or . Discharge Plan Plan Patient Disposition: Admit Acute Care w/in Hospital Problem List Clinical Impression: Diabetic keto-acidosis, Perianal abscess, Cellulitis, gluteal
[2024-07-20] MEDS: INSULIN REG 100 UNITS/100 ML 100 UNIT/100 ML BAG 8.437 UNIT IV (16:00)
[2024-07-20 16:01] LABS: Bacteria,Urine Rare; Bilirubin,Urine Negative (Negative); Blood,Urine 1+ (Negative); Clarity,Urine Clear (Clear/Hazy); Color,Urine Lt-Yellow (Lt Yel-Yel); Glucose, Urine 4+ (Negative); Ketones,Urine 4+ (Negative); Leukocyte Esterase,Urine Positive (Negative); Nitrite,Urine Negative (Negative); Protein,Urine Trace (Neg - Trace); RBC,Urine 5 /hpf (0-3); Specific Gravity,Urine 1.027 (1.001-1.035); Squamous Epithelial Cell,Urine 4 /hpf (0-5); Urobilinogen,Urine Negative mg/dL (0.0-1.0); WBC,Urine 13 /hpf (0-5)
[2024-07-20 16:02] LABS: Hyaline Casts,Urine < 1 /hpf (0-1)
[2024-07-20] MEDS: MORPHINE SULF INJ 10 MG/ML VIAL 6 MG IV (16:13)
[2024-07-20] MEDS: Vancomycin Inj 1,000 MG in SODIUM CHLORIDE 0.9% 250 ML 250 ML 150 MG IV (16:13)
[2024-07-20 16:44] LABS: Beta HCG,Quantitative 2 mIU/mL (<5.0)
[2024-07-20 17:01] LABS: HCG Qualitative,Urine Negative
[2024-07-20 17:04] LABS: Lactate (Lactic Acid) 1.8 mMol/L (0.4-2.0)
--- NOTE | 2024-07-20 17:05 | PC.NURSE ---
dr pina at bedside
[2024-07-20 17:06] LABS: Basophils # (Auto) 0.1 Thou/mm3 (0.0-0.2); Basophils % (Auto) 0 % (0-2.5); Eosinophils % (Auto) 0 % (0-10); Hematocrit 34.4 % (36.0-46.0); Hemoglobin 11.9 g/dL (12.0-16.0); Immature Granulocytes % (Auto) 1 % (0-0); Immature Granulocytes Auto 0.23 Thou/mm3 (0.00-0.00); Lymphocytes % (Auto) 11 % (10-50); Mean Corpuscular HGB Conc 34.6 g/dl (31.0-37.0); Mean Corpuscular Hemoglobin 29.5 pg (25.0-35.0); Mean Corpuscular Volume 85 fL (80-100); Monocytes # (Auto) 0.8 Thou/mm3 (0.0-0.8); Monocytes % (Auto) 5 % (0-12); Neutrophils % (Auto) 83 % (37-80); Nucleated Red Blood Cell % 0 /100 WBC (0); Platelet Count 350 Thou/mm3 (140-440); RDW Standard Deviation 36.2 fL (36.4-46.3); Red Blood Count 4.03 Miln/mm3 (4.00-5.20); White Blood Count 18.1 Thou/mm3 (3.6-11.0)
[2024-07-20 17:11] LABS: Beta Hydroxybutyrate 4.4 mmol/L (<0.6)
[2024-07-20 17:19] LABS: Reflex Lactate? Y
[2024-07-20 17:30] LABS: Alanine Aminotransferase 12 U/L (10-49); Albumin, Serum 3.5 gm/dL (3.5-5.0); Albumin/Globulin Ratio 1.1 (1.2-2.2); Alkaline Phosphatase 116 U/L (46-116); Anion Gap 17 (7-16); Aspartate Amino Transferase 27 U/L (0-34); BUN/Creatinine Ratio 10 Ratio (12-20); Bilirubin,Total 0.4 mg/dL (0.3-1.2); Blood Urea Nitrogen 10 mg/dL (9-23); Calcium 8.3 mg/dL (8.3-10.6); Calcium (Corrected) 8.7 mg/dL (8.5-10.1); Chloride 97 mMol/L (98-107); Estimated Creatinine Clearance 78.6 mL/min (>60); Globulin 3.1 gm/dL (2.3-3.5); Glucose 361 mg/dL (74-106); Magnesium 1.6 mg/dL (1.6-2.6); Osmolality,Calculated 271 (275-295); Phosphorous 2.7 mg/dL (2.4-5.1); Potassium 3.3 mMol/L (3.4-5.1); Sodium 128 mMol/L (136-145); Total Protein 6.6 gm/dL (5.7-8.2); eGFR > 60 See Note
[2024-07-20 17:32] LABS: Carbon Dioxide 14.3 mMol/L (20.0-31.0)
--- NOTE | 2024-07-20 17:35 | XR_ITS ---
Examination: AP chest single view Technique: AP portable upright chest single view Exam date and time: July 20, 2024 1759 hrs. Comparison January 06, 2022 Indications: Onset shortness of breath today. Findings: The film is rotated RPO which accentuates the left perihilar markings Normal heart size No pulmonary edema or lobar pneumonia Impression: No lobar pneumonia or pulmonary edema
--- NOTE | 2024-07-20 17:41 | PC.NURSE ---
pharmacy called for potassium
--- NOTE | 2024-07-20 17:46 | EKG_ITS ---
[facility] Test Date: 2024-07-20 Pat Name: NEGRA COVINGTON Department: Room: - Gender: Female Residential Carpenter: : 1980 Requested By: Esequiel Herrera Order Number: [id number] Reading MD: Esequiel Herrera Measurements Intervals [place] Rate: 92 P: 61 PA: 157 QRS: 65 QRSD: 90 T: 55 QT: 366 QTc: 453 Interpretive Statements SINUS RHYTHM NONSPECIFIC T-WAVE ABNORMALITY Compared to ECG 04/07/2024 11:04:50 T-wave abnormality now present /store/S0/[id number].pdf
[2024-07-20 17:55] LABS: Base Excess -5 (-3-3); HCO3 19 mEq/L (20-26); Inspired Oxygen, FIO2 21 %; O2 Saturation 98 % (91-98); PCO2 32 mmHg (32.0-48.0); PO2 90 mmHg (83-108); pH, Arterial 7.39 (7.35-7.45)
[2024-07-20 17:56] LABS: Allen Test Performed/OK; Puncture Site Right Radial
[2024-07-20] MEDS: PIPER/TAZO 3.375 GM 3.375 GM/50 ML BAG IV (18:04)
[2024-07-20] MEDS: POT CHL ADDITIVE 20 MEQ in RINGERS LACTATED 1000 ML 1,000 ML 250 MEQ IV (18:06)
[2024-07-20] MEDS: Magnesium Sulfate 2 GM Ivpb 2 GM/50 ML BAG IV (18:26)
--- NOTE | 2024-07-20 18:31 | PD.SURCONS ---
HPI Consult details Consult date: 07/20/24 Reason for consultation narrative: Patient was seen in consultation because of cellulitis and necrosis of the skin over the left buttock History of present illness: History of present illness revealed that the patient has had this problem for the past 3 weeks. It started draining last Thursday and she came to the emergency room today. She was treated as an outpatient with antibiotics but did not improve. She also has poorly controlled diabetes. She has had a history of perianal abscess in the past in 2019 for which I performed incision and drainage Past Medical History Past Medical History NEUROLOGIC: Negative Neurological Disorders CARDIAC: Positive Hypertension; Negative Cardiac Disorders or Congestive Heart Failure RESPIRATORY: Negative Chronic Obstructive Pulmonary Disease (COPD) or Asthma GASTROINTESTINAL: Positive Gastrointestinal Disorders and Gastroesophageal Reflux Disease GENITOURINARY: Negative Genitourinary Disorders or Renal Disease REPRODUCTIVE: Negative Pelvic Inflammatory Disease MUSCULOSKELETAL: Negative Musculoskeletal Disorders ENDOCRINE: Positive Endocrine Disorders and Diabetes Mellitus Type 2; Negative Diabetes Mellitus Type 1 HEMATOLOGIC: Positive Blood Disorders and Anemia; Negative Sickle Cell Disease OTHER HISTORY: Negative Autoimmune Disease, Anesthesia Reactions, Organ Transplant, MRSA or Clostridium Difficile Family History FAMILY HISTORY: Positive Family Cardiac Disorders; Negative Family Psychiatric Problems, Family Respiratory Disorders or Family Gastrointestinal Problems Surgical History SURGICAL: Positive Abdominal Surgery; Negative Cardiac Surgery, Ear Surgery, Nephrectomy, Joint Replacement, Neurologic Surgery, Mastectomy or Organ Transplant Social History SMOKING STATUS: Never smoker SUBSTANCE USE: does not use Meds Home Medications and Allergies Home Medications ?Medication ?Instructions ?Recorded ?Confirmed ?Type glimepiride 1 mg tablet (Amaryl) 1 mg PO QDAY #0 tabs 01/01/17 11/11/19 History sitagliptin phosphate 100 mg 100 mg PO QDAY #0 tabs 01/01/17 11/11/19 History tablet (Januvia) insulin glargine 100 unit/mL (3 80 unit subcut QDAY 10/08/18 11/11/19 History mL) subcutaneous pen (Basaglar KwikPen U-100 Insulin) Allergies Allergy/AdvReac Type Severity Reaction Status Date / Time pioglitazone [From Actos] Allergy Severe Swelling Verified 07/15/24 08:41 of Lip/Tongue/Throat latex Allergy Intermediate Itching Verified 07/15/24 08:41 metformin Allergy Intermediate Swelling Verified 07/15/24 08:41 Exam Vital Signs Temp Pulse Resp BP Pulse Ox O2 Del Method 97.8 F 93 16 133/79 H 99 Room Air 07/20/24 17:00 07/20/24 18:00 07/20/24 18:00 07/20/24 18:00 07/20/24 18:00 07/20/24 18:00 Narrative Exam Physical examination revealed slightly obese female who is 5 foot 6 inches tall weighing 186 pounds with BMI of 30 Constitutional Constitutional: moderate distress Routine Abdominal Exam Comments: Examination of the left buttock revealed considerable cellulitis with couple of areas of necrotic skin. The cellulitis involves the entire left buttock extending medially towards the labia but not including the labia Results Results: Laboratory Laboratory Narrative: Patient's laboratory Showed WBC of 18,000 and glucose and 500s. Patient CO2 2 is 14 obviously due to acidosis Assessment & Plan Additional Assessment Additional comments: Impression: Poorly controlled diabetes with abscess and cellulitis over the left buttock Plan Plan: We shall arrange for debridement of this abscess under general anesthesia after her diabetes is controlled. Since she has considerable cellulitis I will treat her first with IV antibiotics and then plan surgery.
[2024-07-20] MEDS: METOCLOPRAMIDE INJ 5 MG/ML VIAL 2 ML 10 MG IVP (18:38)
--- NOTE | 2024-07-20 18:50 | ESHP_ITS ---
<Statement entered by Brittni Lee MD - 07/24/24 09:37> TOTAL CC TIME: 35 MIN I saw and evaluated the patient. I reviewed the resident?s note and agree with findings and plan as documented in the resident?s note. Upon my evaluation, this patient had a high probability of imminent or life- threatening deterioration due to DKA and perianal large abscess which required my direct attention, intervention, and personal management. This time is exclusive of time spent on procedures, which are documented separately if performed. will stabalize / resolve DKA w/ IVFs and insulin gtt - abscess will be drained by surgery after DKA resolves monitor renal function closely Documentation for date of: 07/20/24 HPI History of Present Illness History of present illness: 43 year old female patient with PMHx significant for IDDM- non-compliant with her medications, Cholecystectomy, and Perianal abscess history- presented to ED with complaints of Nausea, vomiting, abdominal pain, along complaints of left buttock pain for a few weeks. Patient reports pain became significant 6 days ago, she started noticing fluid draining down her left thigh, describes fluid as thick yellowish sticky, patient was seen by her pcp who prescribed her Abx (Clindamycin and Metronidazole) but her condition didn't improve, she also reports running out of her insulin a few weeks ago. At admission patient's vitals were noted for tachycardia with heart rate of 100, bedside glucose of 460, CBC was noted for WBC of 18, Hgb 12, CMP was noted for sodium of 128, potassium 3.3, chloride of 97, bicarb 14.3, anion gap of 17, glucose of 361, beta hydroxybutyrate 4.4, and a Pro-Cj of 0.60, UA noted for 4+ ketones and WBC of 13. EKG showed sinus rhythm with regular rate, no ST segment elevation or T wave abnormalities. 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 general surgery were consulted by ED physician, after evaluation of patient's condition general surgery recommended admitting patient for I&D following day after her DKA resolves. Review of Systems Review of Systems Systems Reviewed: All systems reviewed, normal except as documented Exam Vital Signs Temp Pulse Resp BP Pulse Ox O2 Del Method 97.8 F 93 16 133/79 H 99 Room Air 07/20/24 17:00 07/20/24 18:00 07/20/24 18:00 07/20/24 18:00 07/20/24 18:00 07/20/24 18:00 Narrative Exam General:Obese, laying in bed, in mild acute distress, answering questions appropriately, making appropriate eye contact HEENT: Normocephalic, atraumatic, EOMI, PERRLA, moist oral mucosa, normal dentition. Cardiac: Tachycardic, normal S1/S2, no murmurs. Lungs: Clear to auscultation with no wheezings or crackles, normal respiratory effort and rate. Abdomen: Soft, diffusly tinder, nondistended, positive bowel sounds in all quadrants. No guarding or rebound tenderness. Neuro: AAO to name, date of and place. CN II- XII intact, no focal motor deficit noted, BUE/BLE motor function and sensation intact and equal. Extremities: Normal to inspection except left gluteal region noted for 3 necrotic round areas and a fistula surfacing laterally, extensive erythema and tenderness noted on left medial gluteal region 6 x6 , no lower ext. edema, no cyanosis noted, peripheral pulses strong but feet cool to touch. Results: Labs 07/20/24 16:57 07/20/24 16:57 Labs: Short CBC 07/20/24 07/20/24 Range/Units 13:42 16:57 WBC 18.4 H 18.1 H (3.6-11.0) Thou/mm3 Hgb 13.4 11.9 L (12.0-16.0) g/dL Hct 40.1 34.4 L (36.0-46.0) % Plt Count 397 350 D (140-440) Thou/mm3 BMP 07/20/24 07/20/24 14:00 16:57 Sodium 125 L 128 L Potassium 3.7 3.3 L Chloride 87 L 97 L Carbon Dioxide 17.0 L 14.3 L* BUN 12 10 Creatinine 1.2 1.0 Glucose 527 H* 361 H D Calcium 9.5 8.3 Liver Function 07/20/24 07/20/24 Range/Units 14:00 16:57 Total Bilirubin 0.4 0.4 (0.3-1.2) mg/dL AST 10 27 (0-34) U/L ALT 10 12 (10-49) U/L Alkaline Phosphatase 115 116 (46-116) U/L Albumin 4.1 3.5 D (3.5-5.0) gm/dL Urine 07/20/24 Range/Units 15:40 Urine Color Lt-Yellow (Lt Yel-Yel) Urine Clarity Clear (Clear/Hazy) Urine pH 5.0 (5.0-7.0) Ur Specific [place] 1.027 (1.001-1.035) Urine Protein Trace (Neg - Trace) Urine Glucose (UA) 4+ A (Negative) ABG Interpretation ABG results: 07/20/24 17:50 ABG pH 7.39 ABG pCO2 32 ABG pO2 90 ABG HCO3 19 L ABG O2 Saturation 98 ABG Base Excess -5 L Quality Measures Quality Measures VTE prophylaxis Medications Home Medications and Allergies Home Medications ?Medication ?Instructions ?Recorded ?Confirmed ?Type glimepiride 1 mg tablet (Amaryl) 1 mg PO QDAY #0 tabs 01/01/17 11/11/19 History sitagliptin phosphate 100 mg 100 mg PO QDAY #0 tabs 01/01/17 11/11/19 History tablet (Januvia) insulin glargine 100 unit/mL (3 80 unit subcut QDAY 10/08/18 11/11/19 History mL) subcutaneous pen (Basaglar KwikPen U-100 Insulin) Allergies Allergy/AdvReac Type Severity Reaction Status Date / Time pioglitazone [From Actos] Allergy Severe Swelling Verified 07/15/24 08:41 of Lip/Tongue/Throat latex Allergy Intermediate Itching Verified 07/15/24 08:41 metformin Allergy Intermediate Swelling Verified 07/15/24 08:41 Visit Medications Acetaminophen (Acetaminophen 325 Mg Tablet) 650 mg PO Q4HR PRN PRN Reason: PAIN SCALE 1-3 (mild Stop: 08/19/24 17:34 Acetaminophen (Acetaminophen Supp 650 Mg Supp) 650 mg AR Q4HR PRN PRN Reason: PAIN SCALE 1-3 (mild Stop: 08/19/24 17:34 Al Hydrox/Mg Hydrox/Simethicone (Mg Hyd/Al Hyd/Benjamin (Maalox Reg) Susp 30 Ml Udc) 30 ml PO Q4HR PRN PRN Reason: Heartburn or Upset Stomach Stop: 08/19/24 17:34 Dextrose (Dextrose 50%-Water Inj 50 Ml Syringe) 25 ml IV PRNMRX1 PRN PRN Reason: Blood Sugar - Low Dextrose (Dextrose 50%-Water Inj 50 Ml Syringe) 25 ml IV PRNMRX1 PRN PRN Reason: Blood Sugar - Low Heparin Sodium (Porcine) (Heparin Sod Inj 5000 Unit/Ml Vial) 5,000 unit SC BID FRANDY Stop: 08/03/24 20:59 Insulin Human Regular (Myxredlin) 100 unit in 100 mls @ 8.437 mls/hr IV .[id number] PRN; Protocol PRN Reason: PER PROTOCOL Stop: 08/19/24 15:22 Last Titration: 07/20/24 18:00 Dose: 0.1 unit/kg/hr, 8.437 mls/hr Potassium Chloride 20 meq/ (Lactated Ringer's) 1,010 mls @ 250 mls/hr IV .Q4H3M PRN PRN Reason: K LEVEL 3.3 TO 5.3mM/L Stop: 08/19/24 16:44 Last Admin: 07/20/24 18:06 Dose: 250 mls/hr Potassium Chloride (Kcl Ivpb) 10 meq in 100 mls @ 100 mls/hr IV .Q1H PRN PRN Reason: IF POTASSIUM LESS THAN 3.3 Stop: 08/19/24 17:34 Magnesium Sulfate (Magnesium Sulfate Ivpb) 2 gm in 50 mls @ 25 mls/hr IV .Q2H PRN PRN Reason: PER DKA PROTOCOL Stop: 08/19/24 17:34 Last Admin: 07/20/24 18:26 Dose: 25 mls/hr Dextrose/Lactated Ringer's (D5-Lr) 1,000 mls @ 250 mls/hr IV .Q4H PRN PRN Reason: PER PROTOCOL Stop: 08/19/24 17:34 Lactated Ringer's (Lactated Ringers) 1,000 mls @ 250 mls/hr IV .Q4H PRN PRN Reason: PER PROTOCOL Stop: 07/21/24 17:34 Potassium Chloride 40 meq/ (Lactated Ringer's) 1,020 mls @ 250 mls/hr IV .Q4H5M PRN PRN Reason: K LEVEL < 3.3 mM/L Stop: 08/19/24 17:34 Potassium Chloride 40 meq/ (Dextrose/Lactated Ringer's) 1,020 mls @ 250 mls/hr IV .Q4H5M PRN PRN Reason: K LEVEL < 3.3mM/L Stop: 08/19/24 17:34 Potassium Cl/Dextrose/Lact Ringer's (Kcl 20 Meq/L In D5-Lr) 20 meq in 1,000 mls @ 250 mls/hr IV .Q4H PRN PRN Reason: K LEVEL 3.3 TO 5.3 mM/L Stop: 08/19/24 17:34 Potassium Chloride (Kcl Ivpb) 10 meq in 100 mls @ 50 mls/hr IV PRN PRN PRN Reason: K LEVEL 3.3 to 5.3 & BG > 200 Stop: 08/19/24 17:34 Potassium Phosphate (Pot Phos 15 Mmol In Ns 250 Ml) 15 mmol in 250 mls @ 62.5 mls/hr IV PRN PRN PRN Reason: Phosphate <= 1mg/dL Stop: 08/19/24 17:34 Sodium Phosphate 15 mmol/ (Sodium Chloride) 255 mls @ 62.5 mls/hr IV .Q4H5M PRN PRN Reason: Phosphate <= 1mg/dL and K> than 5.3 Stop: 08/19/24 17:34 Piperacillin Sod/Tazobactam (Sod 3.375 gm/ Sodium Chloride) 100 mls @ 200 mls/hr IV Q6HR FRANDY Stop: 07/28/24 00:00 Vancomycin/Sodium Chloride (Vancomycin/Ns 500 Mg Ivpb) 100 mls @ 120 mls/hr IV X1 ONE Stop: 07/20/24 19:04 Magnesium Hydroxide (Milk Of Magnesia Susp 30 Ml Udc) 30 ml PO QDAY PRN PRN Reason: CONSTIPATION Stop: 08/19/24 17:34 Metoclopramide HCl (Metoclopramide Inj 5 Mg/Ml Vial 2 Ml) 10 mg IVP Q6HR PRN; Protocol PRN Reason: Nausea Stop: 08/19/24 18:28 Last Admin: 07/20/24 18:38 Dose: 10 mg Morphine Sulfate (Morphine Sulf Inj 10 Mg/Ml Vial) 2 mg IVP Q4H PRN PRN Reason: PAIN SCALE 7-10 (Severe Stop: 07/25/24 17:34 Nitroglycerin (Nitroglycerin 0.4 Mg Subl Btl #25) 0.4 mg SL Q5MIN PRN PRN Reason: CHEST PAIN Ondansetron HCl (Ondansetron Inj 2 Mg/Ml Inj 2 Ml) 4 mg IV Q6HR PRN PRN Reason: NAUSEA OR VOMITING Stop: 08/19/24 17:34 Pharmacy Consult (Vancomycin Pharmacy To Dose 1 Each Each) 1 each IV QDAY FRANDY Stop: 08/20/24 08:59 Sodium Bicarbonate (Sodium Bicarb Inj 8.4% Syr 50 Ml Syringe) 50 ml IV PRN PRN PRN Reason: For ph <= to 7.0 Stop: 08/19/24 17:34 Discontinued Medications Hydrocodone Bitart/Acetaminophen (Hydrocodone/Apap 5/325 Tablet) 1 tab PO X1 ONE Stop: 07/20/24 13:43 Last Admin: 07/20/24 13:49 Dose: 1 tab Sodium Chloride (Ns) 1,000 mls @ 999 mls/hr IV .Q1H1M ONE Stop: 07/20/24 16:23 Last Infusion: 07/20/24 16:55 Dose: Infused Sodium Chloride (Ns) 1,000 mls @ 999 mls/hr IV .Q1H1M ONE Stop: 07/20/24 16:23 Last Infusion: 07/20/24 16:54 Dose: Infused Vancomycin HCl 1,000 mg/ (Sodium Chloride) 250 mls @ 150 mls/hr IV X1 ONE Stop: 07/20/24 17:26 Last Infusion: 07/20/24 17:50 Dose: Infused Sodium Chloride (Ns) 1,000 mls @ 999 mls/hr IV .Q1H1M ONE Stop: 07/20/24 17:37 Last Infusion: 07/20/24 17:49 Dose: Infused Piperacillin/Tazobactam/Dextrose (Zosyn) 3.375 gm in 50 mls @ 100 mls/hr IV X1 ONE Stop: 07/20/24 17:42 Last Admin: 07/20/24 18:04 Dose: 100 mls/hr Ketorolac Tromethamine (Ketorolac Inj 30 Mg/Ml Vial) 30 mg IM X1 ONE Stop: 07/20/24 13:43 Last Admin: 07/20/24 13:49 Dose: 30 mg Morphine Sulfate (Morphine Sulf Inj 10 Mg/Ml Vial) 6 mg IV X1 ONE Stop: 07/20/24 16:16 Last Admin: 07/20/24 16:13 Dose: 6 mg Ondansetron HCl (Ondansetron Odt 4 Mg Tabrap) 4 mg PO X1 ONE; Protocol Stop: 07/20/24 13:43 Last Admin: 07/20/24 13:49 Dose: 4 mg Assessment & Plan Plan 43 year old female patient with PMHx significant for IDDM- non-compliant with her medications, Cholecystectomy, and Perianal abscess history admitted for management of DKA, cellulitis, and perianal abscess. Neuro No active issues CVS #Hypertension and sinus tachycardia In setting of pain, mildly elevated with BP 150/76. Defer starting antihypertensive medication to PCP. Pulm No active issues GI #Nausea/vomiting/ abdominal pain In setting of DKA. Last BM on day of admission normal. Management in ENDO section. Renal #Electrolyte imbalance In setting of vomiting and decreased po intake. Fluids per DKA, continue to monitor renal panel q4h. Heme #Leukocytosis In setting of cellulitis #Normocytic anemia In setting of dilution, patient was given 2L of IVF, Continue to monitor and order tests as indicated. ID #Perianal abscess #Cellulitis #Pyuria- patient denies any symptoms. Patient started on Vancomycin and zosyn. Morphine Q2h as needed. F/U Bcx, Ucx and daily CBC. De-escalate Abx as warranted. F/U PT, PTT General surgery- Dr. Muse consulted, patient will be scheduled for debridment once DKA resolves. Endo #DKA #IDDM II A1c ordered but sent out (likely above 14) Patient given 2L of NS bolus at ED Patient started on 250cc/hr of lactated ringer. Patient started on Insulin drip Q1hr bedside glucose check. Q4hr renal panel. Metoclopromide q6 prn Replete electrolyte as needed. Carb consistent diet once tolerates. Diabetes education prior to discharge by hospitalist team. Skin/Musculoskeletal #Cellulitis of left buttock and necrotic wounds. Wound care consulted. DVT prophylaxis: Heparin SC Diet: carb consistent if tolerates, NPO after midnight. Lines: PIV. CODE STATUS: Full code Reason for hospitalization/disposition: DKA, Perianal abscess. Plan of care discussed with attending Dr. Rosa Taylor, PGY-3
[2024-07-20] MEDS: VANCOMYCIN/NS 500 MG IVPB 100 ML 120 MG IV (20:08)
[2024-07-20] MEDS: HEPARIN SOD INJ 5000 UNIT/ML VIAL SC (20:09)
[2024-07-20 20:28] LABS: Lactic Acid, 3 HR 2.1 mMol/L (0.4-2.0)
[2024-07-20] MEDS: KCL 20 mEq/L in D5-LR 20 MEQ/1,000 ML BAG 250 MEQ IV (21:05)
[2024-07-20] MEDS: ONDANSETRON INJ 2 MG/ML INJ 2 ML 4 MG IV (21:35)
[2024-07-20 22:12] LABS: Albumin, Serum 3.2 gm/dL (3.5-5.0); Anion Gap 8 (7-16); BUN/Creatinine Ratio 16 Ratio (12-20); Blood Urea Nitrogen 11 mg/dL (9-23); Calcium 8.5 mg/dL (8.3-10.6); Calcium (Corrected) 9.1 mg/dL (8.5-10.1); Carbon Dioxide 23.9 mMol/L (20.0-31.0); Chloride 102 mMol/L (98-107); Creatinine (Component) 0.7 mg/dL (0.6-1.3); Estimated Creatinine Clearance 109.2 mL/min (>60); Glucose 186 mg/dL (74-106); Magnesium 2.1 mg/dL (1.6-2.6); Osmolality,Calculated 272 (275-295); Phosphorous 1.6 mg/dL (2.4-5.1); Sodium 134 mMol/L (136-145); eGFR > 60 See Note
[2024-07-20] MEDS: POTASSIUM CHL 10 mEq IVPB 10 MEQ/100 ML BAG 100 MEQ IV (22:40)
--- NOTE | 2024-07-20 22:45 | PC.NURSE ---
K+ AT 3.0 DR CONNELL AWARE, ADDITIONAL K-RIDER INFUSING ALONG WITH SATNAM 20MEQ. VS STABLE AT THIS TIME
[2024-07-20] MEDS: POT CHL ADDITIVE 40 MEQ in RINGERS LACTATED 1000 ML 1,000 ML 250 MEQ IV (23:29)
[2024-07-21] VITALS (22 sets, daily range): BP systolic 104–145; BP diastolic 60–93; PULSE 88–114; RESP 12–99; TEMP 36.2–37.3; O2SAT 96–100; BMI 28.4; BMI 28.3
[2024-07-21] MEDS: PIPER/TAZO INJ 3.375 GM in SODIUM CHLORIDE 0.9% (P) 100 ML IV ×3 (00:05→11:15)
[2024-07-21] MEDS: POTASSIUM CHL 10 mEq IVPB 10 MEQ/100 ML BAG 100 MEQ IV (00:54)
[2024-07-21] MEDS: POT CHL ADDITIVE 40 MEQ in DEXTROSE 5%-LACTATED RINGERS 1,000 ML 250 MEQ IV (01:04)
[2024-07-21] MEDS: METOCLOPRAMIDE INJ 5 MG/ML VIAL 2 ML 10 MG IVP (02:02)
[2024-07-21] MEDS: MORPHINE SULF INJ 10 MG/ML VIAL 2 MG IVP ×2 (02:03→10:55)
[2024-07-21 02:26] LABS: Anion Gap 5 (7-16); BUN/Creatinine Ratio 16 Ratio (12-20); Blood Urea Nitrogen 11 mg/dL (9-23); Calcium 8.3 mg/dL (8.3-10.6); Calcium (Corrected) 9.1 mg/dL (8.5-10.1); Carbon Dioxide 23.7 mMol/L (20.0-31.0); Chloride 104 mMol/L (98-107); Creatinine (Component) 0.7 mg/dL (0.6-1.3); Estimated Creatinine Clearance 109.2 mL/min (>60); Glucose 215 mg/dL (74-106); Magnesium 1.9 mg/dL (1.6-2.6); Osmolality,Calculated 271 (275-295); Phosphorous 1.3 mg/dL (2.4-5.1); Potassium 4.1 mMol/L (3.4-5.1); Sodium 133 mMol/L (136-145); eGFR > 60 See Note
--- NOTE | 2024-07-21 03:25 | PC.NURSE ---
Dr. mena and Dr. Sierra made aware of anion gap closed twice.
[2024-07-21] MEDS: INSULIN GLARGINE (Lantus) 5 UNIT/0.05 ML (PER 5 UNITS) 12 UNIT SC (05:03)
[2024-07-21] MEDS: MORPHINE SULF INJ 10 MG/ML VIAL IVP (05:12)
[2024-07-21] MEDS: INSULIN GLARGINE (Lantus) 5 UNIT/0.05 ML (PER 5 UNITS) 28 UNIT SC (05:29)
[2024-07-21 06:14] LABS: INR 1.1 (0.9-1.3); Prothrombin Time 12.2 Seconds (9.0-12.2)
[2024-07-21 06:42] LABS: Misc Send Out* See Sep Rpt
[2024-07-21 06:43] LABS: Albumin, Serum 3.5 gm/dL (3.5-5.0); Anion Gap 7 (7-16); BUN/Creatinine Ratio 14 Ratio (12-20); Blood Urea Nitrogen 10 mg/dL (9-23); Calcium 8.6 mg/dL (8.3-10.6); Carbon Dioxide 23.9 mMol/L (20.0-31.0); Chloride 102 mMol/L (98-107); Creatinine (Component) 0.7 mg/dL (0.6-1.3); Estimated Creatinine Clearance 109.4 mL/min (>60); Glucose 180 mg/dL (74-106); Osmolality,Calculated 270 (275-295); Phosphorous 1.2 mg/dL (2.4-5.1); Potassium 3.8 mMol/L (3.4-5.1); Sodium 133 mMol/L (136-145); eGFR > 60 See Note
[2024-07-21] MEDS: VANCOMYCIN/NS 1 GM IVPB 200 ML IV ×3 (09:00→22:44)
[2024-07-21] MEDS: HEPARIN SOD INJ 5000 UNIT/ML VIAL SC ×2 (09:00→21:27)
[2024-07-21 10:06] LABS: Albumin, Serum 3.2 gm/dL (3.5-5.0); Anion Gap 7 (7-16); BUN/Creatinine Ratio 15 Ratio (12-20); Blood Urea Nitrogen 9 mg/dL (9-23); Calcium 8.3 mg/dL (8.3-10.6); Calcium (Corrected) 8.9 mg/dL (8.5-10.1); Carbon Dioxide 23.6 mMol/L (20.0-31.0); Chloride 102 mMol/L (98-107); Creatinine (Component) 0.6 mg/dL (0.6-1.3); Estimated Creatinine Clearance 127.6 mL/min (>60); Glucose 209 mg/dL (74-106); Magnesium 1.9 mg/dL (1.6-2.6); Osmolality,Calculated 271 (275-295); Phosphorous 1.4 mg/dL (2.4-5.1); Potassium 3.9 mMol/L (3.4-5.1); Sodium 133 mMol/L (136-145); eGFR > 60 See Note
--- NOTE | 2024-07-21 10:09 | PD.SURPROG ---
Documentation for date of: 07/21/24 Subjective Subjective Brief History: History of present illness revealed that the patient has had this problem for the past 3 weeks. It started draining last Thursday and she came to the emergency room today. She was treated as an outpatient with antibiotics but did not improve. She also has poorly controlled diabetes. She has had a history of perianal abscess in the past in 2019 for which I performed incision and drainage Narrative: The patient is feeling better with antibiotics but complains of abdominal pain and has not slept all night. She is not vomiting Exam Vital Signs Temp Pulse Resp BP Pulse Ox O2 Del Method 97.7 F 94 16 133/70 H 98 Room Air 07/21/24 08:00 07/21/24 09:00 07/21/24 09:00 07/21/24 09:00 07/21/24 09:00 07/21/24 09:00 Her vital signs are normal other than mild tachycardia Routine Abdominal Exam Comments: Examination of the left buttock revealed diminishing cellulitis Results Results: Laboratory Laboratory Narrative: Laboratory results are pending Results: Imaging Imaging narrative: CT scan performed yesterday showed some abscess on the left buttock in the perineum Assessment & Plan Assessment Additional comments: Impression: Abscess and necrosis of the skin left buttock Poorly controlled diabetes Plan Plan: Patient will require incision and drainage. However she wants to wait for another day because she is not feeling good. We could arrange it tomorrow as per the patient wishes.
[2024-07-21] MEDS: ONDANSETRON INJ 2 MG/ML INJ 2 ML 4 MG IV (10:55)
[2024-07-21] MEDS: INSULIN LISPRO (AdmeLOG) 1 UNIT/0.01 ML UNIT SC ×2 (11:15→21:32)
--- NOTE | 2024-07-21 11:49 | ESPR_ITS ---
Documentation for date of: 07/21/24 Subjective Subjective Interval history: 07/21/2024; patient was seen and examined by bedside, vital stable, continues to endorse mild abdominal tenderness and has purulent drainage out of abscess, no longer complains of nausea or vomiting and able to tolerate p.o. intake, patient was placed on n.p.o. after midnight for surgical debridement of perianal abscess/fistula repair pending resolution of DKA. Patient's anion gap closed multiple times with bicarb levels of 24, patient was transitioned to insulin sliding scale and started on 40 units of insulin glargine. Patient will be taken to the OR this p.m., continue patient on antibiotic therapy for cellulitis/perianal abscess on vancomycin/Zosyn. Follow-up blood cultures and abscess cultures, patient will be downgraded to floor and hospitalist team to resume care on 07/22/2024. Exam Vital Signs Temp Pulse Resp BP Pulse Ox O2 Del Method 97.7 F 90 18 133/70 H 98 Room Air 07/21/24 08:00 07/21/24 10:16 07/21/24 10:16 07/21/24 09:00 07/21/24 09:00 07/21/24 09:00 Narrative Exam General:Obese, laying in bed, in mild acute distress, answering questions appropriately, making appropriate eye contact HEENT: Normocephalic, atraumatic, EOMI, PERRLA, moist oral mucosa, normal dentition. Cardiac: Tachycardic, normal S1/S2, no murmurs. Lungs: Clear to auscultation with no wheezings or crackles, normal respiratory effort and rate. Abdomen: Soft, diffusly tinder, nondistended, positive bowel sounds in all quadrants. No guarding or rebound tenderness. Neuro: AAO to name, date of and place. CN II- XII intact, no focal motor deficit noted, BUE/BLE motor function and sensation intact and equal. Extremities: Normal to inspection except left gluteal region noted for 3 necrotic round areas and a fistula surfacing laterally, extensive erythema and tenderness noted on left medial gluteal region 6 x6 , no lower ext. edema, no cyanosis noted, peripheral pulses strong but feet cool to touch. Objective Labs 07/21/24 09:20 07/21/24 09:20 Labs: Laboratory Results - last 24 hr 07/20/24 07/20/24 07/20/24 13:42 14:00 15:40 WBC 18.4 H RBC 4.58 Hgb 13.4 Hct 40.1 MCV 88 MCH 29.3 MCHC 33.4 RDW Std Deviation 37.2 Plt Count 397 Neut % (Auto) 85 H Lymph % (Auto) 8 L [place] % (Auto) 5 Eos % (Auto) 0 Baso % (Auto) 0 Neut # (Auto) 15.7 H Lymph # (Auto) 1.5 [place] # (Auto) 1.0 H Eos # (Auto) 0.0 Baso # (Auto) 0.1 Immature Gran # (Auto) 0.23 H Absolute Nucleated RBC 0.00 Immature Gran % 1 H Nucleated RBC % 0 PT INR Puncture Site ABG pH ABG pCO2 ABG pO2 ABG HCO3 ABG O2 Saturation ABG Base Excess FiO2 Sodium 125 L Potassium 3.7 Chloride 87 L Carbon Dioxide 17.0 L Anion Gap 21 H BUN 12 Creatinine 1.2 Estim Creat Clear Calc 65.5 eGFR 57 L BUN/Creatinine Ratio 10 L Glucose 527 H* Estimated Ave Glu mg/dL Cancelled Hemoglobin A1c Cancelled Calculated Osmolality 275 Lactic Acid 2.4 H Calcium 9.5 Corrected Calcium 9.5 Phosphorus Magnesium Total Bilirubin 0.4 AST 10 ALT 10 Alkaline Phosphatase 115 Total Protein 7.7 Albumin 4.1 Globulin 3.6 H Albumin/Globulin Ratio 1.1 L Beta-Hydroxybutyrate/Acetoacetate Procalcitonin 0.62 H Beta HCG, Quant 2 Ur Collection Type Clean Catch Urine Color Lt-Yellow Urine Clarity Clear Urine pH 5.0 Ur Specific [place] 1.027 Urine Protein Trace Urine Glucose (UA) 4+ A Urine Ketones 4+ A Urine Blood 1+ A Urine Nitrite Negative Urine Bilirubin Negative Urine Urobilinogen (Auto) Negative Ur Leukocyte Esterase Positive Urine RBC 5 H Urine WBC 13 H Ur Squamous Epith Cells 4 Urine Bacteria Rare Hyaline Casts < 1 Urine HCG, Qual Negative 07/20/24 07/20/24 07/20/24 16:57 17:50 20:14 WBC 18.1 H RBC 4.03 Hgb 11.9 L Hct 34.4 L MCV 85 MCH 29.5 MCHC 34.6 RDW Std Deviation 36.2 L Plt Count 350 D Neut % (Auto) 83 H Lymph % (Auto) 11 [place] % (Auto) 5 Eos % (Auto) 0 Baso % (Auto) 0 Neut # (Auto) 15.0 H Lymph # (Auto) 2.0 [place] # (Auto) 0.8 Eos # (Auto) 0.0 Baso # (Auto) 0.1 Immature Gran # (Auto) 0.23 H Absolute Nucleated RBC 0.00 Immature Gran % 1 H Nucleated RBC % 0 PT INR Puncture Site Right Radial ABG pH 7.39 ABG pCO2 32 ABG pO2 90 ABG HCO3 19 L ABG O2 Saturation 98 ABG Base Excess -5 L FiO2 21 Sodium 128 L Potassium 3.3 L Chloride 97 L Carbon Dioxide 14.3 L* Anion Gap 17 H BUN 10 Creatinine 1.0 Estim Creat Clear Calc 78.6 eGFR > 60 BUN/Creatinine Ratio 10 L Glucose [address] Glu mg/dL Cancelled Hemoglobin A1c Cancelled Calculated Osmolality 271 L Lactic Acid 1.8 2.1 H Calcium 8.3 Corrected Calcium 8.7 Phosphorus 2.7 Magnesium 1.6 Total Bilirubin 0.4 AST 27 ALT 12 Alkaline Phosphatase 116 Total Protein 6.6 Albumin 3.5 D Globulin 3.1 Albumin/Globulin Ratio 1.1 L Beta-Hydroxybutyrate/Acetoacetate 4.4 H Procalcitonin Beta HCG, Quant Ur Collection Type Urine Color Urine Clarity Urine pH Ur Specific [place] Urine Protein Urine Glucose (UA) Urine Ketones Urine Blood Urine Nitrite Urine Bilirubin Urine Urobilinogen (Auto) Ur Leukocyte Esterase Urine RBC Urine WBC Ur Squamous Epith Cells Urine Bacteria Hyaline Casts Urine HCG, Qual 07/20/24 07/21/24 07/21/24 21:38 01:52 04:47 WBC RBC Hgb Hct MCV MCH MCHC RDW Std Deviation Plt Count Neut % (Auto) Lymph % (Auto) [place] % (Auto) Eos % (Auto) Baso % (Auto) Neut # (Auto) Lymph # (Auto) [place] # (Auto) Eos # (Auto) Baso # (Auto) Immature Gran # (Auto) Absolute Nucleated RBC Immature Gran % Nucleated RBC % PT 12.2 INR 1.1 Puncture Site ABG pH ABG pCO2 ABG pO2 ABG HCO3 ABG O2 Saturation ABG Base Excess FiO2 Sodium 134 L 133 L 133 L Potassium 3.0 L 4.1 D 3.8 Chloride 102 104 102 Carbon Dioxide 23.9 23.7 23.9 Anion Gap 8 5 L 7 BUN 11 11 10 Creatinine 0.7 0.7 0.7 Estim Creat Clear Calc 109.2 109.2 109.4 eGFR > 60 > 60 > 60 BUN/Creatinine Ratio 16 16 14 Glucose 186 H D [address] Glu mg/dL Hemoglobin A1c Calculated Osmolality 272 L 271 L 270 L Lactic Acid Calcium 8.5 8.3 8.6 Corrected Calcium 9.1 9.1 9.0 Phosphorus 1.6 L 1.3 L 1.2 L Magnesium 2.1 1.9 2.0 Total Bilirubin AST ALT Alkaline Phosphatase Total Protein Albumin 3.2 L 3.0 L 3.5 D Globulin Albumin/Globulin Ratio Beta-Hydroxybutyrate/Acetoacetate Procalcitonin Beta HCG, Quant Ur Collection Type Urine Color Urine Clarity Urine pH Ur Specific [place] Urine Protein Urine Glucose (UA) Urine Ketones Urine Blood Urine Nitrite Urine Bilirubin Urine Urobilinogen (Auto) Ur Leukocyte Esterase Urine RBC Urine WBC Ur Squamous Epith Cells Urine Bacteria Hyaline Casts Urine HCG, Qual 07/21/24 09:20 WBC RBC Hgb Hct MCV MCH MCHC RDW Std Deviation Plt Count Neut % (Auto) Lymph % (Auto) [place] % (Auto) Eos % (Auto) Baso % (Auto) Neut # (Auto) Lymph # (Auto) [place] # (Auto) Eos # (Auto) Baso # (Auto) Immature Gran # (Auto) Absolute Nucleated RBC Immature Gran % Nucleated RBC % PT INR Puncture Site ABG pH ABG pCO2 ABG pO2 ABG HCO3 ABG O2 Saturation ABG Base Excess FiO2 Sodium 133 L Potassium 3.9 Chloride 102 Carbon Dioxide 23.6 Anion Gap 7 BUN 9 Creatinine 0.6 Estim Creat Clear Calc 127.6 eGFR > 60 BUN/Creatinine Ratio [address]ucose [address] Glu mg/dL Hemoglobin A1c Calculated Osmolality 271 L Lactic Acid Calcium 8.3 Corrected Calcium 8.9 Phosphorus 1.4 L Magnesium 1.9 Total Bilirubin AST ALT Alkaline Phosphatase Total Protein Albumin 3.2 L Globulin Albumin/Globulin Ratio Beta-Hydroxybutyrate/Acetoacetate Procalcitonin Beta HCG, Quant Ur Collection Type Urine Color Urine Clarity Urine pH Ur Specific [place] Urine Protein Urine Glucose (UA) Urine Ketones Urine Blood Urine Nitrite Urine Bilirubin Urine Urobilinogen (Auto) Ur Leukocyte Esterase Urine RBC Urine WBC Ur Squamous Epith Cells Urine Bacteria Hyaline Casts Urine HCG, Qual ABG Interpretation ABG results: 07/20/24 17:50 ABG pH 7.39 ABG pCO2 32 ABG pO2 90 ABG HCO3 19 L ABG O2 Saturation 98 ABG Base Excess -5 L Quality Measures Quality Measures none Assessment & Plan Assessment Current Active Medications: Generic Name Dose Route Start Last Admin Trade Name Freq PRN Reason Stop Dose Admin Acetaminophen 650 mg 07/20/24 17:35 Acetaminophen 325 Mg Tablet PO 08/19/24 17:34 Q4HR PRN PAIN SCALE 1-3 (mild Acetaminophen 650 mg 07/20/24 17:35 Acetaminophen Supp 650 Mg Supp AK 08/19/24 17:34 Q4HR PRN PAIN SCALE 1-3 (mild Al Hydrox/Mg Hydrox/Simethicone 30 ml 07/20/24 17:35 Mg Hyd/Al Hyd/Benjamin (Maalox Reg) Susp 30 Ml Udc PO 08/19/24 17:34 Q4HR PRN Heartburn or Upset Stomach Heparin Sodium (Porcine) 5,000 unit 07/20/24 21:00 07/21/24 09:00 Heparin Sod Inj 5000 Unit/Ml Vial SC 08/03/24 20:59 5,000 unit BID FRANDY Administration Piperacillin Sod/Tazobactam 100 mls @ 200 mls/hr 07/21/24 00:00 07/21/24 11:15 Sod 3.375 gm/ Sodium Chloride IV 07/28/24 00:00 200 mls/hr Q6HR FRANDY Administration Vancomycin/Sodium Chloride 200 mls @ 120 mls/hr 07/21/24 06:45 07/21/24 07:50 Vancomycin/Ns 1 Gm Ivpb IV 07/28/24 06:44 Not Given Q8HR FRANDY Protocol Vancomycin/Sodium Chloride 200 mls @ 120 mls/hr 07/21/24 09:00 07/21/24 09:00 Vancomycin/Ns 1 Gm Ivpb IV 07/21/24 10:39 120 mls/hr X1 ONE Administration Protocol Insulin Human Lispro 0 unit 07/21/24 12:00 07/21/24 11:15 Insulin Lispro (Admelog) 1 Unit/0.01 Ml Unit SC 08/20/24 11:59 2 unit Q6HR FRANDY Administration Protocol Magnesium Hydroxide 30 ml 07/20/24 17:35 Milk Of Magnesia Susp 30 Ml Udc PO 08/19/24 17:34 QDAY PRN CONSTIPATION Metoclopramide HCl 10 mg 07/20/24 18:29 07/21/24 02:02 Metoclopramide Inj 5 Mg/Ml Vial 2 Ml IVP 08/19/24 18:28 10 mg Q6HR PRN Administration Nausea Protocol Morphine Sulfate 2 mg 07/20/24 17:35 07/21/24 10:55 Morphine Sulf Inj 10 Mg/Ml Vial IVP 07/25/24 17:34 2 mg Q4H PRN Administration PAIN SCALE 7-10 (Severe Ondansetron HCl 4 mg 07/20/24 17:35 07/21/24 10:55 Ondansetron Inj 2 Mg/Ml Inj 2 Ml IV 08/19/24 17:34 4 mg Q6HR PRN Administration NAUSEA OR VOMITING Pharmacy Consult 1 each 07/21/24 09:00 07/21/24 08:04 Vancomycin Pharmacy To Dose 1 Each Each IV 08/20/24 08:59 Not Given QDAY FRANDY Plan 43 year old female patient with PMHx significant for IDDM- non-compliant with her medications, Cholecystectomy, and Perianal abscess history admitted for management of DKA, cellulitis, and perianal abscess. 07/21/2024; patient was seen and examined by bedside, vital stable, continues to endorse mild abdominal tenderness and has purulent drainage out of abscess, no longer complains of nausea or vomiting and able to tolerate p.o. intake, patient was placed on n.p.o. after midnight for surgical debridement of perianal abscess/fistula repair pending resolution of DKA. Patient's anion gap closed multiple times with bicarb levels of 24, patient was transitioned to insulin sliding scale and started on 40 units of insulin glargine. Patient will be taken to the OR this p.m., continue patient on antibiotic therapy for cellulitis/perianal abscess on vancomycin/Zosyn. Follow-up blood cultures and abscess cultures, patient will be downgraded to floor and hospitalist team to resume care on 07/22/2024. Neuro No active issues CVS #Hypertension and sinus tachycardia----Resolved. In setting of pain, mildly elevated with BP 150/76. Defer starting antihypertensive medication to PCP. Pulm No active issues GI #Nausea/vomiting/ abdominal pain----Resolved. In setting of DKA. Last BM on day of admission normal. Management in ENDO section. Renal #Electrolyte imbalance In setting of vomiting and decreased po intake. Fluids per DKA, continue to monitor renal panel q4h. Heme #Leukocytosis----Improving In setting of cellulitis #Normocytic anemia In setting of dilution, patient was given 2L of IVF, Continue to monitor and order tests as indicated. ID #Perianal abscess #Cellulitis #Pyuria- patient denies any symptoms. Patient started on Vancomycin and zosyn. Morphine Q2h as needed. F/U Bcx, Ucx and daily CBC. De-escalate Abx as warranted. F/U PT, PTT General surgery- Dr. Muse consulted, patient will be scheduled for debridment once DKA resolves. Endo #DKA----Resolved. #IDDM II A1c ordered but sent out (likely above 14) Carb consistent diet once tolerates. Diabetes education prior to discharge by hospitalist team. Skin/Musculoskeletal #Cellulitis of left buttock and necrotic wounds. Wound care consulted. DVT prophylaxis: Heparin SC Diet: carb consistent after OR Lines: PIV. CODE STATUS: Full code Reason for hospitalization/disposition: DKA, Perianal abscess. Plan of care discussed with attending Dr. J Luis Taylor, PGY-3 Attending Provider Attestation/Addendum Patient seen and examined. Discussed with residents. In brief this is a 43-year-old female admitted to the ICU for DKA. Patient was placed on DKA protocol and started on insulin drip. She was transitioned to subcu insulin this morning. She remains n.p.o. for possible surgical intervention. At time of presentation she was noted to have very large abscess with cellulitic changes over her left buttock region. CT was obtained which did not show any air however did not seem to show a fistulous tract which connected with her anus. She was currently on IV antibiotics. She was seen by surgery. She will require I&D with debridement. She is n.p.o. Today she declined intervention as she states she needs to rest. She is currently stable and off of the insulin drip and therefore able to be downgraded. Case discussed with ICU team and surgery Labs, imaging and records reviewed ~40min required for eval, exam, review, intervention, discussion and formulation of POC
[2024-07-21 12:20] LABS: Lactate (Lactic Acid) 0.8 mMol/L (0.4-2.0)
[2024-07-21 13:37] LABS: Basophils % (Auto) 0 % (0-2.5); Eosinophils % (Auto) 0 % (0-10); Hematocrit 35.1 % (36.0-46.0); Hemoglobin 11.9 g/dL (12.0-16.0); Immature Granulocytes % (Auto) 1 % (0-0); Immature Granulocytes Auto 0.15 Thou/mm3 (0.00-0.00); Lymphocytes # (Auto) 1.7 Thou/mm3 (1.0-4.8); Lymphocytes % (Auto) 13 % (10-50); Mean Corpuscular HGB Conc 33.9 g/dl (31.0-37.0); Mean Corpuscular Hemoglobin 29.2 pg (25.0-35.0); Mean Corpuscular Volume 86 fL (80-100); Monocytes % (Auto) 7 % (0-12); Neutrophils # (Auto) 10.6 Thou/mm3 (1.8-7.7); Neutrophils % (Auto) 79 % (37-80); Nucleated Red Blood Cell % 0 /100 WBC (0); Platelet Count 385 Thou/mm3 (140-440); RDW Standard Deviation 37.1 fL (36.4-46.3); Red Blood Count 4.07 Miln/mm3 (4.00-5.20); White Blood Count 13.5 Thou/mm3 (3.6-11.0)
--- NOTE | 2024-07-21 16:13 | PD.RESEVENT ---
Documentation for date of: 07/21/24 Event Note Event Note: 43 y/o F with PMhx of insulin dependent diabetes, Cholecystectomy, and Perianal abscess history- presented to ED with complaints of Nausea, vomiting, abdominal pain, along complaints of left buttock pain for a few weeks. Patient noticed some fluid draining down her leg went to her PCP and was prescribed some antibiotics but did not improve. Patient also had run out of her insulin for a few weeks and was admitted to the ICU for DKA. 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 I&D was planned by general surgery once DKA resolved. Patient scheduled today for I&D by general surgeon, Dr. Lr. Hospitalist team will resume care of patient on 07/22/2024. Case discussed with my senior Dr. Martino PGY-2 Mehrdad Linares MD PGY-1
--- NOTE | 2024-07-21 18:32 | SUR.PHASEI ---
Pt. arrived to recovery via gurney, eyes closed, responds to verbal commands, VSS, no c/o pain or nausea at this time, lung sounds clear, equal expansion pura., pt. receiving 6 liters 02 via oxymask, dressing to left medial buttock, packing, 1/2 inch iodoform, fluffs, abd pad and mesh underwear in place, small amount of bright red blood on fluffs. Report received from Dr. Garrison and Ratna LAUGHLIN.
--- NOTE | 2024-07-21 18:34 | PD.SUROPNT ---
Date of Procedure 07/21/24 Post Op Diagnosis Same Procedure Incision and drainage of the 4 abscesses left buttock Findings Patient is found to have necrotic skin over the left buttock in 4 places on therefore required I&D of the left buttock Procedure Description Of the patient was brought to the operating room she was given LMA then turned to the right lateral position. Then her left breast buttock was washed with ChloraPrep solution draped in a sterile manner. Timeout was performed. Then I started cutting of the necrotic tissue over the left buttock in 4 places each one of them measuring about 4 cm in diameter 2 of them measuring about 5 cm in diameter. This abscess was drained and cultures were obtained. Then necrosis of underneath was cut out till grayish tissues were removed. Wound was then irrigated with saline solution. I used a 15 blade knife to cut this necrotic tissue until healthy pink tissue was seen underneath. Bleeding points were controlled with cautery and some of them were suture-ligated with 3-0 chromic. Then the wound was packed with half an inch iodoform packing and fluffs and dressing was applied with tape. Anesthesia other (General LMA) Pathology / specimen None Estimated Blood Loss 100 Surgeon Be Monae MD Surgical Staff Operation Date: 07/21/24 13:15 Case Staff Anesthesiologist: Norman Garrison RN First Assistant: Jerri Cummings
[2024-07-21] MEDS: MORPHINE SULF INJ 10 MG/ML VIAL 3 MG IV (18:56)
--- NOTE | 2024-07-21 19:06 | SUR.PHASEI ---
Provided pt. with ice chips, tolerating well.
--- NOTE | 2024-07-21 19:11 | SUR.PHASEI ---
Called and gave report on pt. s/p surgery to Corinne LAUGHLIN on M/S unit.
--- NOTE | 2024-07-21 19:20 | SUR.PHASEI ---
Pt. transferred to room 358 via JONATHAN colbert, no c/o pain or nausea at this time, dressing to left medial buttock has small amount of bright red blood on fluffs, IVs flushed and patent, Corinne LAUGHLIN assumed care of pt.
[2024-07-21 22:24] LABS: Vancomycin,Trough 10.5 mcg/mL (5.0-10.0)
--- NOTE | 2024-07-21 22:32 | PC.NURSE ---
Called [facility] to bring Vancomycin 1 gm, med not available on [facility] floor.
[2024-07-22] VITALS (8 sets, daily range): BP systolic 111–141; BP diastolic 67–76; PULSE 84–92; RESP 17–97; TEMP 36.1–36.9; O2SAT 96–98; BMI 32.0
[2024-07-22] MEDS: PIPER/TAZO INJ 3.375 GM in SODIUM CHLORIDE 0.9% (P) 100 ML IV ×5 (00:30→23:06)
[2024-07-22] MEDS: ONDANSETRON INJ 2 MG/ML INJ 2 ML 4 MG IV ×2 (00:32→09:21)
[2024-07-22] MEDS: MORPHINE SULF INJ 10 MG/ML VIAL 2 MG IVP ×2 (00:34→09:20)
[2024-07-22] MEDS: VANCOMYCIN/NS 1 GM IVPB 200 ML IV ×3 (05:39→21:09)
[2024-07-22 05:41] LABS: Basophils % (Auto) 0 % (0-2.5); Eosinophils % (Auto) 0 % (0-10); Hematocrit 35.2 % (36.0-46.0); Hemoglobin 11.8 g/dL (12.0-16.0); Immature Granulocytes % (Auto) 2 % (0-0); Immature Granulocytes Auto 0.23 Thou/mm3 (0.00-0.00); Lymphocytes # (Auto) 1.6 Thou/mm3 (1.0-4.8); Lymphocytes % (Auto) 11 % (10-50); Mean Corpuscular HGB Conc 33.5 g/dl (31.0-37.0); Mean Corpuscular Hemoglobin 28.9 pg (25.0-35.0); Mean Corpuscular Volume 86 fL (80-100); Monocytes # (Auto) 0.5 Thou/mm3 (0.0-0.8); Monocytes % (Auto) 3 % (0-12); Neutrophils # (Auto) 12.2 Thou/mm3 (1.8-7.7); Neutrophils % (Auto) 84 % (37-80); Nucleated Red Blood Cell % 0 /100 WBC (0); Platelet Count 372 Thou/mm3 (140-440); RDW Standard Deviation 37.1 fL (36.4-46.3); Red Blood Count 4.09 Miln/mm3 (4.00-5.20); White Blood Count 14.5 Thou/mm3 (3.6-11.0)
[2024-07-22] MEDS: INSULIN LISPRO (AdmeLOG) 1 UNIT/0.01 ML UNIT SC ×4 (07:24→20:15)
[2024-07-22] MEDS: INSULIN GLARGINE (Lantus) 5 UNIT/0.05 ML (PER 5 UNITS) 40 UNIT SC ×2 (08:54→20:17)
[2024-07-22] MEDS: HEPARIN SOD INJ 5000 UNIT/ML VIAL SC ×2 (08:54→20:19)
[2024-07-22 09:13] LABS: Anion Gap 10 (7-16); BUN/Creatinine Ratio 16 Ratio (12-20); Blood Urea Nitrogen 11 mg/dL (9-23); Calcium 8.1 mg/dL (8.3-10.6); Carbon Dioxide 23.8 mMol/L (20.0-31.0); Chloride 97 mMol/L (98-107); Creatinine (Component) 0.7 mg/dL (0.6-1.3); Estimated Creatinine Clearance 116.2 mL/min (>60); Glucose 266 mg/dL (74-106); Osmolality,Calculated 271 (275-295); Potassium 4.5 mMol/L (3.4-5.1); Sodium 131 mMol/L (136-145); eGFR > 60 See Note
[2024-07-22 09:15] LABS: Calcium (Corrected) 8.9 mg/dL (8.5-10.1); Phosphorous 2.9 mg/dL (2.4-5.1)
[2024-07-22] MEDS: SIMETHICONE 80 MG CHEW PO (10:02)
--- NOTE | 2024-07-22 10:49 | PC.SS ---
Follow up note: Pt is an ICU down grade.
--- NOTE | 2024-07-22 11:00 | CHAP ---
Patient was visited by the Spiritual Care Volunteer who prayed for them. (Volunteer was in the hospital from C. 10:00-11:00)
[2024-07-22] MEDS: INSULIN LISPRO (AdmeLOG) 1 UNIT/0.01 ML UNIT 3 UNIT SC ×2 (11:17→17:12)
--- NOTE | 2024-07-22 11:36 | PC.SS ---
SS met with patient regarding her d/c plan. Pt is alert/oriented. Pt was admitted for DKA. Pt confirmed demographic and contact information is correct on facesheet. Pt resides with kids. Pt ambulates independently without assistance or DME. Pt is ok with all ADLs. Pt is employed white hat hacker. Patient?s pharmacy of choice is [facility] on [address]. Pt named her life partner, Rikki Roy medical decision maker if she is unable. Pt states she is diabetic but does not have glucometer/test strips. Patient?s choice is to return home upon d/c. Pt states she last followed up with PCP on Thursday. D/C plan: Return home Next of Kin: Rikki Roy, life partner, phone# [phone] PCP: Dr. Letty Hanley at [facility] Address: Correct on facesheet
--- NOTE | 2024-07-22 14:01 | ESPR_ITS ---
Documentation for date of: 07/22/24 Subjective Subjective Interval history: Patient seen today at the bedside found awake, alert, oriented x3. No overnight events reported. Is complaining of pain in the abdominal area, states its likely due to gas, refused pain medications. Simethicone was ordered and has prn pain medications. A1c found to be too elevated for our labs to detect, and was sent to [facility]. Patient might need outpatient Endocrinology follow up, to see if insulin pump is an option for managing her blood glucose lvls. Exam Vital Signs Temp Pulse Resp BP Pulse Ox O2 Del Method O2 Flow Rate 97.4 F 85 18 128/67 96 Room Air 4 07/22/24 11:52 07/22/24 11:52 07/22/24 11:52 07/22/24 11:52 07/22/24 11:52 07/22/24 11:52 07/22/24 11:52 Narrative Exam Physical Exam GENERAL: AAox3, some discomfort, uncomfortable HEENT: Moist mucosa. Eyes open, symmetrical, & clear CARDIO: No chest pain on palpation. Heart RRR, no obvious murmurs PULM: No noted coughing/dyspnea. Lungs CTA B/L, no R/W/R GI: Abdomen soft, nondistended, abdominal discomfort SKIN/MSK/EXT: Pedal pulses present B/L, packing in the 4 areas of left buttocks, covered NEURO: AAOx3, no focal neuro deficits Objective Labs 07/22/24 05:06 07/22/24 05:06 Labs: Laboratory Results - last 24 hr 07/21/24 07/22/24 21:02 05:06 WBC 14.5 H RBC 4.09 Hgb 11.8 L Hct 35.2 L MCV 86 MCH 28.9 MCHC 33.5 RDW Std Deviation 37.1 Plt Count 372 Neut % (Auto) 84 H Lymph % (Auto) 11 [place] % (Auto) 3 Eos % (Auto) 0 Baso % (Auto) 0 Neut # (Auto) 12.2 H Lymph # (Auto) 1.6 [place] # (Auto) 0.5 Eos # (Auto) 0.0 Baso # (Auto) 0.0 Immature Gran # (Auto) 0.23 H Absolute Nucleated RBC 0.00 Immature Gran % 2 H Nucleated RBC % 0 Sodium 131 L Potassium 4.5 D Chloride 97 L Carbon Dioxide 23.8 Anion Gap 10 BUN 11 Creatinine 0.7 Estim Creat Clear Calc 116.2 eGFR > 60 BUN/Creatinine Ratio 16 Glucose 266 H D Calculated Osmolality 271 L Calcium 8.1 L Corrected Calcium 8.9 Phosphorus 2.9 Albumin 3.0 L Vancomycin Trough 10.5 H ABG Interpretation ABG results: 07/20/24 17:50 ABG pH 7.39 ABG pCO2 32 ABG pO2 90 ABG HCO3 19 L ABG O2 Saturation 98 ABG Base Excess -5 L Quality Measures Quality Measures none Assessment & Plan Assessment Current Active Medications: Generic Name Dose Route Start Last Admin Trade Name Freq PRN Reason Stop Dose Admin Acetaminophen 650 mg 07/20/24 17:35 Acetaminophen 325 Mg Tablet PO 08/19/24 17:34 Q4HR PRN PAIN SCALE 1-3 (mild Acetaminophen 650 mg 07/20/24 17:35 Acetaminophen Supp 650 Mg Supp [place] 08/19/24 17:34 Q4HR PRN PAIN SCALE 1-3 (mild Heparin Sodium (Porcine) 5,000 unit 07/20/24 21:00 07/22/24 08:54 Heparin Sod Inj 5000 Unit/Ml Vial SC 08/03/24 20:59 5,000 unit BID FRANDY Administration Piperacillin Sod/Tazobactam 100 mls @ 200 mls/hr 07/21/24 00:00 07/22/24 11:44 Sod 3.375 gm/ Sodium Chloride IV 07/28/24 00:00 200 mls/hr Q6HR FRANDY Administration Vancomycin/Sodium Chloride 200 mls @ 120 mls/hr 07/21/24 06:45 07/22/24 13:52 Vancomycin/Ns 1 Gm Ivpb IV 07/28/24 06:44 120 mls/hr Q8HR FRANDY Administration Protocol Insulin Glargine 40 unit 07/22/24 09:00 07/22/24 08:54 Insulin Glargine (Lantus) 5 Unit/0.05 Ml (Per 5 Units) SC 08/21/24 08:59 40 unit QDAY FRANDY Administration Insulin Human Lispro 0 unit 07/21/24 21:00 07/22/24 11:17 Insulin Lispro (Admelog) 1 Unit/0.01 Ml Unit SC 08/20/24 20:59 2 unit ACHS FRANDY Administration Protocol Insulin Human Lispro 3 unit 07/22/24 11:30 12/06/24 11:17 Insulin Lispro (Admelog) 1 Unit/0.01 Ml Unit SC 08/21/24 11:29 3 unit AC FRANDY Administration Metoclopramide HCl 10 mg 07/20/24 18:29 07/21/24 02:02 Metoclopramide Inj 5 Mg/Ml Vial 2 Ml IVP 08/19/24 18:28 10 mg Q6HR PRN Administration Nausea Protocol Morphine Sulfate 2 mg 07/20/24 17:35 07/22/24 09:20 Morphine Sulf Inj 10 Mg/Ml Vial IVP 07/25/24 17:34 2 mg Q4H PRN Administration PAIN SCALE 7-10 (Severe Ondansetron HCl 4 mg 07/20/24 17:35 07/22/24 09:21 Ondansetron Inj 2 Mg/Ml Inj 2 Ml IV 08/19/24 17:34 4 mg Q6HR PRN Administration NAUSEA OR VOMITING Pharmacy Consult 1 each 07/22/24 06:25 Vancomycin Pharmacy To Dose 1 Each Each IV 08/20/24 08:59 QDAY PRN PROTOCOL Simethicone 80 mg 07/22/24 09:24 Simethicone 80 Mg Chew PO 07/29/24 09:23 QID PRN GAS Plan 43 year old female patient with PMHx significant for IDDM- non-compliant with her medications, Cholecystectomy, and Perianal abscess history admitted for management of DKA, cellulitis, and perianal abscess. #Perianal abscess-s/p I&D #Cellulitis #Abdominal discomfort Patient had I&D procedure on 07/21/2024 found with cellulitis of the left buttocks, was found to have perianal abcess with possible fistula to the anus found to have necrotic skin over the left buttock in 4 places on therefore required I&D of the left buttock - on Vancomycin and zosyn. - Morphine Q2h as needed. - simethicone addded for abdominal discomfort - on reglan - wound care on case - f/u blood cx - f/u urine cx - f/u abcess cx - General surgery- Dr. Muse consulted, appreciate recommendations #Diabetic ketoacidosis-Resolved. #IDDM II A1c ordered but sent out as its probably to high for our lab to detect - sliding scale insulin - hypoglycemic protocol - Consider outpatient endocrinology follow up for candidacy for insulin pump Case discussed with my senior Dr. Martino PGY-[address] Roxy Linares MD PGY-1 Disposition: Medsurg Fluids: None Feeding: Carb consistent Thrombo prophylaxis: Heparin Gastric Ulcer prophylaxis: none CODE STATUS: Full code Senior resident attestation: I discussed with and supervised the financial services internship physician who took care of this patient. I personally saw and examined the patient and discussed the assessment and plan with the entire medicine team, including my attending Dr. Ramsey , I agree with the assessment and plan as documented above. #Perianal abscess s/p I&D #Diabetic ketoacidosis #Poorly controlled diabetes mellitus type 2 Patient is a 43-year-old female who came in with perianal abscess and cellulitis, also found to have DKA, history of poorly controlled diabetes mellitus, status post I&D of perineal abscess. Downgraded from ICU following management of DKA, currently on insulin 40 units twice daily, which is also her home dose, short acting lispro Premeal, 3 times daily, continue on Vanco and Zosyn for now. Pending general surgery recommendations. MD Gunner PGY2 Attending Provider Attestation/Addendum I have discussed and was present for the essential components of the history, physical examination, diagnosis, and treatment plan with the resident. I agree with the patient's care as documented by the resident and amended herein by me. Ramon Ramsey DO. Patient seen and evaluated this AM. In short, patient is a 43-year-old male with a significant past medical history of insulin-dependent diabetes mellitus and medication noncompliance, cholecystectomy and perianal abscess who presented to the ED and subsequently admitted to the ICU for DKA, cellulitis of the perianal region and perianal abscess. No acute events overnight, significant labs include a WBC of 14.5, hemoglobin 11.8 which is stable, sodium 131, normal renal function. No new imaging performed overnight, wound culture from the patient's buttocks is pending however the Gram stain shows rare WBCs and no organisms seen, urine culture is negative and blood cultures drawn on 07/20 are also negative. MRSA nares is pending. The patient's blood glucose was high this morning 343 however did downtrend to 224 after insulin. For today, we will continue broad-spectrum antibiotics however broaden likely can de-escalate tomorrow considering the patient did have an I&D. Surgery consulted, appreciate recommendations. We also need to optimize the patient's insulin regimen, presently on Lantus 40 units daily as well as lispro 3 units 3 times daily AC for now, A1c is off the charts, send out had to be ordered. Patient is normally on 80 units of Lantus at home and in my opinion is too much for single dosing, will likely have to break up long-acting and to twice daily dosing and optimally add on mealtime insulin as well. Will continue to monitor closely, possible discharge in 1 to 2 days pending improvement and specialist recommendations Although this document has been carefully reviewed, there may still be some phonetic and other typographical errors. These errors are purely grammatical due to imperfections in the software program and should not be construed in any way to compromise the substance of the patient's medical care during this visit.
--- NOTE | 2024-07-22 18:31 | PC.NURSE ---
pt complaining of unrelieved abdominal pain. States she is miserable and unable to tolerate the pain. contacted MD and made aware of patient's status.
--- NOTE | 2024-07-22 18:39 | PC.NURSE ---
called pharmacy to bring the medicine they said they will send the med.
[2024-07-22] MEDS: HYOSCYAMINE SULF 0.125 MG TAB.SUBL PO (18:48)
[2024-07-22] MEDS: KETOROLAC INJ 30 MG/ML VIAL 15 MG IVP (21:48)
[2024-07-22] MEDS: METOCLOPRAMIDE INJ 5 MG/ML VIAL 2 ML 10 MG IVP (21:49)
[2024-07-23] VITALS (7 sets, daily range): BP systolic 108–135; BP diastolic 74–88; PULSE 82–95; RESP 16–98; TEMP 36.1–36.3; O2SAT 92–99
[2024-07-23] MEDS: PIPER/TAZO INJ 3.375 GM in SODIUM CHLORIDE 0.9% (P) 100 ML IV ×4 (05:04→23:35)
[2024-07-23] MEDS: METOCLOPRAMIDE INJ 5 MG/ML VIAL 2 ML 10 MG IVP (05:05)
[2024-07-23] MEDS: KETOROLAC INJ 30 MG/ML VIAL 10 MG IVP (05:05)
[2024-07-23 05:33] LABS: Basophils # (Auto) 0.1 Thou/mm3 (0.0-0.2); Basophils % (Auto) 1 % (0-2.5); Eosinophils % (Auto) 0 % (0-10); Hematocrit 34.6 % (36.0-46.0); Hemoglobin 11.7 g/dL (12.0-16.0); Immature Granulocytes % (Auto) 2 % (0-0); Immature Granulocytes Auto 0.22 Thou/mm3 (0.00-0.00); Lymphocytes # (Auto) 2.3 Thou/mm3 (1.0-4.8); Lymphocytes % (Auto) 20 % (10-50); Mean Corpuscular HGB Conc 33.8 g/dl (31.0-37.0); Mean Corpuscular Volume 86 fL (80-100); Monocytes # (Auto) 1.1 Thou/mm3 (0.0-0.8); Monocytes % (Auto) 10 % (0-12); Neutrophils # (Auto) 7.5 Thou/mm3 (1.8-7.7); Neutrophils % (Auto) 67 % (37-80); Nucleated Red Blood Cell % 0 /100 WBC (0); Platelet Count 267 Thou/mm3 (140-440); RDW Standard Deviation 36.8 fL (36.4-46.3); Red Blood Count 4.03 Miln/mm3 (4.00-5.20); White Blood Count 11.1 Thou/mm3 (3.6-11.0)
[2024-07-23] MEDS: INSULIN LISPRO (AdmeLOG) 1 UNIT/0.01 ML UNIT SC ×3 (07:11→16:30)
[2024-07-23] MEDS: VANCOMYCIN/NS 1 GM IVPB 200 ML IV (07:12)
[2024-07-23] MEDS: INSULIN LISPRO (AdmeLOG) 1 UNIT/0.01 ML UNIT 3 UNIT SC ×3 (07:12→16:33)
[2024-07-23] MEDS: INSULIN GLARGINE (Lantus) 5 UNIT/0.05 ML (PER 5 UNITS) 40 UNIT SC (08:41)
[2024-07-23] MEDS: HEPARIN SOD INJ 5000 UNIT/ML VIAL SC ×2 (08:41→21:34)
[2024-07-23 09:19] LABS: Chloride 98 mMol/L (98-107); Sodium 132 mMol/L (136-145)
[2024-07-23 09:21] LABS: Anion Gap 6 (7-16); Calcium 8.1 mg/dL (8.3-10.6); Carbon Dioxide 28.5 mMol/L (20.0-31.0)
[2024-07-23 09:25] LABS: BUN/Creatinine Ratio 10 Ratio (12-20); Blood Urea Nitrogen 8 mg/dL (9-23); Creatinine (Component) 0.8 mg/dL (0.6-1.3); Estimated Creatinine Clearance 100.6 mL/min (>60); Glucose 176 mg/dL (74-106); Osmolality,Calculated 266 (275-295); eGFR > 60 See Note
[2024-07-23 09:27] LABS: Phosphorous 1.4 mg/dL (2.4-5.1)
[2024-07-23 09:28] LABS: Calcium (Corrected) 8.9 mg/dL (8.5-10.1)
--- NOTE | 2024-07-23 10:01 | PC.DIETICIAN ---
Dietitian recommendation: Pt doesn't have a glucometer or CGM. She states she tried to get prior auth for Dexcom but it wasn't approved. Contour Next Ex glucometer was provided and supplies will be needed at discharge. Thank you
[2024-07-23] MEDS: POTASSIUM CHLORIDE 20 mEq TABCR 40 MEQ PO (10:30)
[2024-07-23] MEDS: DICYCLOMINE 10 MG CAPSULE PO (10:31)
[2024-07-23] MEDS: ONDANSETRON INJ 2 MG/ML INJ 2 ML 4 MG IV (11:38)
--- NOTE | 2024-07-23 11:49 | XR_ITS ---
Examination: Abdomen sonogram, complete Date and time of exam: July 23, 2024 1554 hrs. Indications: Intermittent abdominal pain beginning one week ago. Technique: Multiple real-time grayscale transabdominal sonographic images of the abdomen have been obtained. Findings: Absent gallbladder Normal common bile duct 0.3 cm Pancreatic head 2.7 cm Aorta proximal distal visualized not enlarged Fatty liver measuring 14 cm Normal hepatopedal portal venous flow Patent IVC Right kidney 12.0 x 7.0 x 6.9 cm cortex 2.2 cm Left kidney 10.2 x 6.5 x 5.7 cm hypoechoic 2.2 cm Moderate renal parenchymal scar formation Spleen 10.0 cm Impression: Absent gallbladder Normal common bile duct Moderate bilateral renal parenchymal scar formation, no hydronephrosis
[2024-07-23] MEDS: HYDROcodone/APAP 5/325 TABLET 1 TAB PO ×2 (11:51→21:30)
[2024-07-23 13:30] LABS: Amylase 56 U/L (30-118); Lipase 34 U/L (12-53); Vancomycin,Trough 22.3 mcg/mL (5.0-10.0)
--- NOTE | 2024-07-23 13:32 | ESPR_ITS ---
<Statement entered by Blaze Smith MD - 08/01/24 16:11> I reviewed above note and agree with findings and plans. I have also personally examined the patient with medicine team and went over assessment and plan with medical team including qa intern and resident physician. Documentation for date of: 07/23/24 Subjective Subjective Interval history: Patient seen today at the bedside found awake, alert, oriented x3. No overnight events reported. Is complaining of pain in the abdominal area but states remarkable improvement compared to yesterday, states having bowel movement and passing flatus. Morphine and hydrocodone as needed ordered. Blood and urine cultures negative, abscess cultures pending. Currently on vancomycin and Zosyn. Anticipate discharge tomorrow in the a.m. with Augmentin and doxycycline. Exam Vital Signs Temp Pulse Resp BP Pulse Ox O2 Del Method O2 Flow Rate 97.0 F 90 18 133/74 H 98 Room Air 4 07/23/24 08:00 07/23/24 11:43 07/23/24 11:43 07/23/24 08:00 07/23/24 08:00 07/23/24 08:00 07/22/24 15:38 Narrative Exam Physical Exam GENERAL: AAox3, some discomfort, uncomfortable HEENT: Moist mucosa. Eyes open, symmetrical, & clear CARDIO: No chest pain on palpation. Heart RRR, no obvious murmurs PULM: No noted coughing/dyspnea. Lungs CTA B/L, no R/W/R GI: Abdomen soft, nondistended, abdominal discomfort SKIN/MSK/EXT: Pedal pulses present B/L, packing in the 4 areas of left buttocks, covered NEURO: AAOx3, no focal neuro deficits Objective Labs 07/23/24 04:22 07/23/24 08:29 Labs: Laboratory Results - last 24 hr 07/23/24 07/23/24 04:22 08:29 WBC 11.1 H RBC 4.03 Hgb 11.7 L Hct 34.6 L MCV 86 MCH 29.0 MCHC 33.8 RDW Std Deviation 36.8 Plt Count 267 D Neut % (Auto) 67 Lymph % (Auto) 20 [place] % (Auto) 10 Eos % (Auto) 0 Baso % (Auto) 1 Neut # (Auto) 7.5 Lymph # (Auto) 2.3 [place] # (Auto) 1.1 H Eos # (Auto) 0.0 Baso # (Auto) 0.1 Immature Gran # (Auto) 0.22 H Absolute Nucleated RBC 0.00 Immature Gran % 2 H Nucleated RBC % 0 Sodium 132 L Potassium 3.0 L D Chloride 98 Carbon Dioxide 28.5 Anion Gap 6 L BUN 8 L Creatinine 0.8 Estim Creat Clear Calc 100.6 eGFR > 60 BUN/Creatinine Ratio 10 L Glucose 176 H D Calculated Osmolality 266 L Calcium 8.1 L Corrected Calcium 8.9 Phosphorus 1.4 L Albumin 3.0 L Vancomycin Trough Cancelled Random Vancomycin Cancelled ABG Interpretation ABG results: 07/20/24 17:50 ABG pH 7.39 ABG pCO2 32 ABG pO2 90 ABG HCO3 19 L ABG O2 Saturation 98 ABG Base Excess -5 L Quality Measures Quality Measures none Assessment & Plan Assessment Current Active Medications: Generic Name Dose Route Start Last Admin Trade Name Freq PRN Reason Stop Dose Admin Acetaminophen 650 mg 07/20/24 17:35 Acetaminophen 325 Mg Tablet PO 08/19/24 17:34 Q4HR PRN PAIN SCALE 1-3 (mild Acetaminophen 650 mg 07/20/24 17:35 Acetaminophen Supp 650 Mg Supp MD 08/19/24 17:34 Q4HR PRN PAIN SCALE 1-3 (mild Hydrocodone Bitart/Acetaminophen 1 tab 07/23/24 11:47 07/23/24 11:51 Hydrocodone/Apap 5/325 Tablet PO 07/28/24 11:46 1 tab Q6HR PRN Administration PAIN SCALE 4-10(Mod-Sev Heparin Sodium (Porcine) 5,000 unit 07/20/24 21:00 07/23/24 08:41 Heparin Sod Inj 5000 Unit/Ml Vial SC 08/03/24 20:59 5,000 unit BID FRANDY Administration Piperacillin Sod/Tazobactam 100 mls @ 200 mls/hr 07/21/24 00:00 07/23/24 11:38 Sod 3.375 gm/ Sodium Chloride IV 07/28/24 00:00 200 mls/hr Q6HR FRANDY Administration Vancomycin/Sodium Chloride 200 mls @ 120 mls/hr 07/21/24 06:45 07/23/24 07:12 Vancomycin/Ns 1 Gm Ivpb IV 07/28/24 06:44 120 mls/hr Q8HR FRANDY Administration Protocol Insulin Glargine 45 unit 07/23/24 21:00 Insulin Glargine (Lantus) 5 Unit/0.05 Ml (Per 5 Units) SC 08/22/24 20:59 BID FRANDY Insulin Human Lispro 0 unit 07/21/24 21:00 07/23/24 11:17 Insulin Lispro (Admelog) 1 Unit/0.01 Ml Unit SC 08/20/24 20:59 2 unit ACHS FRANDY Administration Protocol Insulin Human Lispro 3 unit 07/22/24 11:30 07/23/24 11:18 Insulin Lispro (Admelog) 1 Unit/0.01 Ml Unit SC 08/21/24 11:29 3 unit AC FRANDY Administration Metoclopramide HCl 10 mg 07/20/24 18:29 07/23/24 05:05 Metoclopramide Inj 5 Mg/Ml Vial 2 Ml IVP 08/19/24 18:28 10 mg Q6HR PRN Administration Nausea Protocol Morphine Sulfate 2 mg 07/20/24 17:35 07/22/24 09:20 Morphine Sulf Inj 10 Mg/Ml Vial IVP 07/25/24 17:34 2 mg Q4H PRN Administration PAIN SCALE 7-10 (Severe Ondansetron HCl 4 mg 07/23/24 10:36 07/23/24 11:38 Ondansetron Inj 2 Mg/Ml Inj 2 Ml IV 08/19/24 17:34 4 mg Q6HR PRN Administration NAUSEA OR VOMITING Pharmacy Consult 1 each 07/22/24 06:25 Vancomycin Pharmacy To Dose 1 Each Each IV 08/20/24 08:59 QDAY PRN PROTOCOL Simethicone 80 mg 07/22/24 09:24 Simethicone 80 Mg Chew PO 07/29/24 09:23 QID PRN GAS Plan 43 year old female patient with PMHx significant for IDDM- non-compliant with her medications, Cholecystectomy, and Perianal abscess history admitted for management of DKA, cellulitis, and perianal abscess. #Perianal abscess-s/p I&D #Cellulitis #Abdominal discomfort-improving Patient had I&D procedure on 07/21/2024 found with cellulitis of the left buttocks, was found to have perianal abcess with possible fistula to the anus found to have necrotic skin over the left buttock in 4 places on therefore required I&D of the left buttock Blood cultures negative in 48 hours, urine culture negative Patient reports having flatus and bowel movements - on Vancomycin and zosyn. - Morphine Q2h as needed. - simethicone added for abdominal discomfort - on reglan - wound care on case - f/u abcess cx -Hydrocodone as needed - General surgery- Dr. Muse consulted, appreciate recommendations #Diabetic ketoacidosis-Resolved. #IDDM II A1c ordered but sent out as its probably to high for our lab to detect Patient administers 80 units of insulin Patient refused diabetic education -Contour next EZ glucometer at time of discharge for better glucose monitoring - sliding scale insulin - hypoglycemic protocol - Consider outpatient endocrinology follow up for candidacy for insulin pump Case discussed with my senior Dr. Martino PGY-[address] Sarah Linares MD PGY-1 Disposition: Medsurg Fluids: None Feeding: Carb consistent Thrombo prophylaxis: Heparin Gastric Ulcer prophylaxis: none CODE STATUS: Full code Senior resident attestation: Patient evaluated and examined at the bedside, plan of care discussed with rest of the team including my attending physician, except as noted. Patient is complaining of abdominal discomfort, of note patient has a prior history of cholecystectomy, but reporting some upper abdominal tenderness. Follow ultrasound abdomen, amylase and lipase within normal limits. Currently on Vanco and Zosyn, for buttock cellulitis and perianal abscess, fingerstick glucose on the higher side, adjusted insulin Lantus 45 units twice daily, short acting insulin 4 units AC. We can discharge the patient on Augmentin and doxycycline when the patient is ready for discharge. Appreciate general surgery recommendations. Gunner PGY2
[2024-07-23] MEDS: SIMETHICONE 80 MG CHEW PO ×2 (17:56→21:39)
[2024-07-23] MEDS: INSULIN GLARGINE (Lantus) 5 UNIT/0.05 ML (PER 5 UNITS) 45 UNIT SC (21:33)
[2024-07-23] MEDS: VANCOMYCIN/NS 750 MG IVPB 750 MG/150 ML BAG 120 MG IV (21:34)
[2024-07-24] VITALS: BP 104/68; PULSE 83; RESP 18; TEMP 36.6; O2SAT 96
[2024-07-24 04:00] VITALS: BP 137/85; PULSE 85; RESP 18; TEMP 36.3; O2SAT 98
[2024-07-24] MEDS: VANCOMYCIN/NS 750 MG IVPB 750 MG/150 ML BAG 120 MG IV (05:14)
[2024-07-24] MEDS: PIPER/TAZO INJ 3.375 GM in SODIUM CHLORIDE 0.9% (P) 100 ML IV (05:14)
[2024-07-24 05:32] LABS: Basophils # (Auto) 0.1 Thou/mm3 (0.0-0.2); Basophils % (Auto) 0 % (0-2.5); Eosinophils % (Auto) 0 % (0-10); Hematocrit 34.3 % (36.0-46.0); Hemoglobin 11.7 g/dL (12.0-16.0); Immature Granulocytes % (Auto) 1 % (0-0); Immature Granulocytes Auto 0.18 Thou/mm3 (0.00-0.00); Lymphocytes # (Auto) 3.1 Thou/mm3 (1.0-4.8); Lymphocytes % (Auto) 22 % (10-50); Mean Corpuscular HGB Conc 34.1 g/dl (31.0-37.0); Mean Corpuscular Hemoglobin 29.3 pg (25.0-35.0); Mean Corpuscular Volume 86 fL (80-100); Monocytes # (Auto) 1.2 Thou/mm3 (0.0-0.8); Monocytes % (Auto) 9 % (0-12); Neutrophils # (Auto) 9.4 Thou/mm3 (1.8-7.7); Neutrophils % (Auto) 67 % (37-80); Nucleated Red Blood Cell % 0 /100 WBC (0); Platelet Count 384 Thou/mm3 (140-440); RDW Standard Deviation 36.9 fL (36.4-46.3)
[2024-07-24 06:01] LABS: Alanine Aminotransferase 13 U/L (10-49); Albumin, Serum 3.1 gm/dL (3.5-5.0); Albumin/Globulin Ratio 1.1 (1.2-2.2); Alkaline Phosphatase 220 U/L (46-116); Anion Gap 8 (7-16); Aspartate Amino Transferase 12 U/L (0-34); BUN/Creatinine Ratio 6 Ratio (12-20); Bilirubin,Total 0.3 mg/dL (0.3-1.2); Blood Urea Nitrogen 7 mg/dL (9-23); Calcium 8.4 mg/dL (8.3-10.6); Calcium (Corrected) 9.1 mg/dL (8.5-10.1); Carbon Dioxide 27.6 mMol/L (20.0-31.0); Chloride 99 mMol/L (98-107); Creatinine (Component) 1.2 mg/dL (0.6-1.3); Estimated Creatinine Clearance 67.1 mL/min (>60); Globulin 2.9 gm/dL (2.3-3.5); Glucose 84 mg/dL (74-106); Magnesium 1.7 mg/dL (1.6-2.6); Osmolality,Calculated 267 (275-295); Potassium 2.9 mMol/L (3.4-5.1); Sodium 135 mMol/L (136-145); eGFR 57 See Note
[2024-07-24] MEDS: POTASSIUM CHLORIDE 20 mEq TABCR 40 MEQ PO (06:54)
[2024-07-24] MEDS: POTASSIUM CHL 10 mEq IVPB 10 MEQ/100 ML BAG 100 MEQ IV ×3 (06:55→09:28)
[2024-07-24] MEDS: NAPH,KPH MBDB 1 PACKET (1.5 GM) PO (07:58)
[2024-07-24 08:00] VITALS: BP 124/72; PULSE 86; RESP 16; TEMP 36.4; O2SAT 98
[2024-07-24] MEDS: HEPARIN SOD INJ 5000 UNIT/ML VIAL SC ×2 (09:29→20:41)
[2024-07-24] MEDS: AMOXICILLIN/POT CLAV 500 MG TABLET PO ×2 (10:50→20:41)
[2024-07-24] MEDS: DOXYCYCLINE 100 MG TABLET PO ×2 (10:50→20:40)
[2024-07-24] MEDS: INSULIN LISPRO (AdmeLOG) 1 UNIT/0.01 ML UNIT SC ×3 (11:14→20:58)
[2024-07-24] MEDS: PANTOPRAZOLE 40 MG TABLET PO (11:14)
[2024-07-24] MEDS: INSULIN LISPRO (AdmeLOG) 1 UNIT/0.01 ML UNIT 3 UNIT SC ×2 (11:15→16:52)
--- NOTE | 2024-07-24 11:34 | PC.CM ---
I received a referral for home health on this patient. I called and spoke to SS to see if patient is homebound. Patient is 43 years old and notes state she works [employer]. SS was going to speak to the patient and to doctor.
[2024-07-24] MEDS: POTASSIUM CHL 10 mEq IVPB 10 MEQ/100 ML BAG 50 MEQ IV (11:46)
--- NOTE | 2024-07-24 11:55 | PC.CM ---
Referral sent to all home health agencies. We need to send the discharge summary once available.
[2024-07-24 12:00] VITALS: BP 131/76; PULSE 89; RESP 17; TEMP 36.4; O2SAT 99
--- NOTE | 2024-07-24 12:00 | PC.SS ---
FIXED ROUTE OPERATOR met with pt due transfer nurse asking questions regarding pt being bedbound upon discharge for HH referral, Pt stated that she was not going to work and be home to fully recover, HH referral will be made.
--- NOTE | 2024-07-24 13:07 | ESPR_ITS ---
<Statement entered by Blaze Smith MD - 08/01/24 16:12> I reviewed above note and agree with findings and plans. I have also personally examined the patient with medicine team and went over assessment and plan with medical team including mechanical engineering intern and resident physician. Documentation for date of: 07/24/24 Subjective Subjective Interval history: Patient seen today at the bedside fine awake, alert, oriented x 3. No overnight events reported. States feeling much better since the surgery, pain adequately controlled, reports having flatus and minimal bowel movement. Vital signs stable at this time. Labs significant for some mild JESENIA, likely in the setting of vancomycin as last Vanco trough was found to be elevated. Antibiotic therapy switched to Augmentin and doxycycline. Abscess culture still pending. Spoke to general surgery Dr. Muse, patient can be discharged if wound care can be coordinated for dressing changes. Anticipate discharge in the next 24 hours. Exam Vital Signs Temp Pulse Resp BP Pulse Ox O2 Del Method O2 Flow Rate 97.6 F 86 16 124/72 98 Room Air 4 07/24/24 08:00 07/24/24 08:00 07/24/24 08:00 07/24/24 08:00 07/24/24 08:00 07/24/24 08:00 07/24/24 08:00 Narrative Exam Physical Exam GENERAL: AAox3, some discomfort, uncomfortable HEENT: Moist mucosa. Eyes open, symmetrical, & clear CARDIO: No chest pain on palpation. Heart RRR, no obvious murmurs PULM: No noted coughing/dyspnea. Lungs CTA B/L, no R/W/R GI: Abdomen soft, nondistended, abdominal discomfort SKIN/MSK/EXT: Pedal pulses present B/L, packing in the 4 areas of left buttocks, covered NEURO: AAOx3, no focal neuro deficits Objective Labs 07/24/24 04:10 07/24/24 04:10 Labs: Laboratory Results - last 24 hr 07/23/24 07/24/24 12:45 04:10 WBC 14.0 H RBC 4.00 Hgb 11.7 L Hct 34.3 L MCV 86 MCH 29.3 MCHC 34.1 RDW Std Deviation 36.9 Plt Count 384 D Neut % (Auto) 67 Lymph % (Auto) 22 [place] % (Auto) 9 Eos % (Auto) 0 Baso % (Auto) 0 Neut # (Auto) 9.4 H Lymph # (Auto) 3.1 [place] # (Auto) 1.2 H Eos # (Auto) 0.0 Baso # (Auto) 0.1 Immature Gran # (Auto) 0.18 H Absolute Nucleated RBC 0.00 Immature Gran % 1 H Nucleated RBC % 0 Sodium 135 L Potassium 2.9 L Chloride 99 Carbon Dioxide 27.6 Anion Gap 8 BUN 7 L Creatinine 1.2 Estim Creat Clear Calc 67.1 eGFR 57 L BUN/Creatinine Ratio 6 L Glucose 84 D Calculated Osmolality 267 L Calcium 8.4 Corrected Calcium 9.1 Phosphorus 2.0 L Magnesium 1.7 Total Bilirubin 0.3 AST 12 ALT 13 Alkaline Phosphatase 220 H Total Protein 6.0 Albumin 3.1 L Globulin 2.9 Albumin/Globulin Ratio 1.1 L Amylase 56 Lipase 34 Vancomycin Trough 22.3 H* ABG Interpretation ABG results: 07/20/24 17:50 ABG pH 7.39 ABG pCO2 32 ABG pO2 90 ABG HCO3 19 L ABG O2 Saturation 98 ABG Base Excess -5 L Quality Measures Quality Measures none Assessment & Plan Assessment Current Active Medications: Generic Name Dose Route Start Last Admin Trade Name Freq PRN Reason Stop Dose Admin Acetaminophen 650 mg 07/20/24 17:35 Acetaminophen 325 Mg Tablet PO 08/19/24 17:34 Q4HR PRN PAIN SCALE 1-3 (mild Acetaminophen 650 mg 07/20/24 17:35 Acetaminophen Supp 650 Mg Supp MS 08/19/24 17:34 Q4HR PRN PAIN SCALE 1-3 (mild Hydrocodone Bitart/Acetaminophen 1 tab 07/23/24 11:47 07/23/24 21:30 Hydrocodone/Apap 5/325 Tablet PO 07/28/24 11:46 1 tab Q6HR PRN Administration PAIN SCALE 4-10(Mod-Sev Amoxicillin/Clavulanate Potassium 500 mg 07/24/24 10:30 07/24/24 10:50 Amoxicillin/Pot Clav 500 Mg Tablet PO 07/31/24 10:29 500 mg BID FRANDY Administration Doxycycline Hyclate 100 mg 07/24/24 10:15 07/24/24 10:50 Doxycycline 100 Mg Tablet PO 07/31/24 10:14 100 mg BID FRANDY Administration Heparin Sodium (Porcine) 5,000 unit 07/20/24 21:00 07/24/24 09:29 Heparin Sod Inj 5000 Unit/Ml Vial SC 08/03/24 20:59 5,000 unit BID FRANDY Administration Insulin Glargine 45 unit 07/23/24 21:00 07/24/24 09:29 Insulin Glargine (Lantus) 5 Unit/0.05 Ml (Per 5 Units) SC 08/22/24 20:59 Not Given BID FRANDY Insulin Human Lispro 0 unit 07/21/24 21:00 07/24/24 11:14 Insulin Lispro (Admelog) 1 Unit/0.01 Ml Unit SC 08/20/24 20:59 2 unit ACHS FRANDY Administration Protocol Insulin Human Lispro 3 unit 07/22/24 11:30 07/24/24 11:15 Insulin Lispro (Admelog) 1 Unit/0.01 Ml Unit SC 08/21/24 11:29 3 unit AC FRANDY Administration Metoclopramide HCl 10 mg 07/20/24 18:29 07/23/24 05:05 Metoclopramide Inj 5 Mg/Ml Vial 2 Ml IVP 08/19/24 18:28 10 mg Q6HR PRN Administration Nausea Protocol Morphine Sulfate 2 mg 07/23/24 13:48 Morphine Sulf Inj 10 Mg/Ml Vial IVP 07/25/24 17:34 Q4H PRN PAIN SCALE 7-10 (Severe Ondansetron HCl 4 mg 07/23/24 10:36 07/23/24 11:38 Ondansetron Inj 2 Mg/Ml Inj 2 Ml IV 08/19/24 17:34 4 mg Q6HR PRN Administration NAUSEA OR VOMITING Pantoprazole Sodium 40 mg 07/24/24 11:00 07/24/24 11:14 Pantoprazole 40 Mg Tablet PO 08/23/24 10:59 40 mg QDAY FRANDY Administration Simethicone 80 mg 07/22/24 09:24 07/23/24 21:39 Simethicone 80 Mg Chew PO 07/29/24 09:23 80 mg QID PRN Administration GAS Plan 43 year old female patient with PMHx significant for IDDM- non-compliant with her medications, Cholecystectomy, and Perianal abscess history admitted for management of DKA, cellulitis, and perianal abscess. #Perianal abscess-s/p I&D #Cellulitis #Abdominal discomfort-improving Patient had I&D procedure on 07/21/2024 found with cellulitis of the left buttocks, was found to have perianal abcess with possible fistula to the anus found to have necrotic skin over the left buttock in 4 places on therefore required I&D of the left buttock Blood cultures negative in 48 hours, urine culture negative Patient reports having flatus and bowel movements -Antibiotic therapy switched to Augmentin and doxycycline - Morphine Q2h as needed. - simethicone for abdominal discomfort - on reglan - wound care on case - f/u abcess cx -Hydrocodone as needed - General surgery- Dr. Muse consulted, appreciate recommendations #Diabetic ketoacidosis-Resolved. #IDDM II A1c ordered but sent out as its probably to high for our lab to detect Patient administers 80 units of insulin Patient refused diabetic education - Contour next EZ glucometer at time of discharge for better glucose monitoring - sliding scale insulin - hypoglycemic protocol - Consider outpatient endocrinology follow up for candidacy for insulin pump Case discussed with my senior Dr. Martino PGY-[address] Sarah Linares MD PGY-1 Disposition: Medsurg Fluids: None Feeding: Carb consistent Thrombo prophylaxis: Heparin Gastric Ulcer prophylaxis: Pantoprazole CODE STATUS: Full code Senior resident attestation: Patient evaluated and examined at the bedside, plan of care discussed with rest of the team including my attending physician, except as noted. Patient is complaining of abdominal discomfort, of note patient has a prior history of cholecystectomy, but reporting some upper abdominal tenderness. Follow ultrasound abdomen, amylase and lipase within normal limits. Currently on Vanco and Zosyn, for buttock cellulitis and perianal abscess, fingerstick glucose on the higher side, adjusted insulin Lantus 45 units twice daily, short acting insulin Premeal. We can discharge the patient on Augmentin and doxycycline when the patient is ready for discharge. Appreciate general surgery recommendations. Gunner PGY2
--- NOTE | 2024-07-24 14:37 | PC.SS ---
Rounding note, pt will need o/p wound care referral.
[2024-07-24] MEDS: ONDANSETRON INJ 2 MG/ML INJ 2 ML 4 MG IV (15:49)
--- NOTE | 2024-07-24 15:51 | PC.SS ---
SENIOR GROUP MANAGER submitted wound care referral via [facility]
[2024-07-24 16:00] VITALS: BP 125/72; PULSE 86; RESP 18; TEMP 36.4; O2SAT 98
[2024-07-24 20:00] VITALS: BP 97/62; PULSE 88; RESP 18; TEMP 36.6; O2SAT 99
[2024-07-24] MEDS: INSULIN GLARGINE (Lantus) 5 UNIT/0.05 ML (PER 5 UNITS) 45 UNIT SC (20:56)
[2024-07-24] MEDS: HYDROcodone/APAP 5/325 TABLET 1 TAB PO (21:01)
[2024-07-25 04:00] VITALS: BP 149/94; PULSE 85; RESP 18; TEMP 36.2; O2SAT 99
[2024-07-25 06:10] LABS: Basophils % (Auto) 0 % (0-2.5); Eosinophils # (Auto) 0.1 Thou/mm3 (0.0-0.5); Eosinophils % (Auto) 1 % (0-10); Hematocrit 31.2 % (36.0-46.0); Hemoglobin 10.3 g/dL (12.0-16.0); Immature Granulocytes % (Auto) 2 % (0-0); Immature Granulocytes Auto 0.19 Thou/mm3 (0.00-0.00); Lymphocytes # (Auto) 2.3 Thou/mm3 (1.0-4.8); Lymphocytes % (Auto) 19 % (10-50); Mean Corpuscular Hemoglobin 28.8 pg (25.0-35.0); Mean Corpuscular Volume 87 fL (80-100); Monocytes % (Auto) 8 % (0-12); Neutrophils # (Auto) 8.2 Thou/mm3 (1.8-7.7); Neutrophils % (Auto) 70 % (37-80); Nucleated Red Blood Cell % 0 /100 WBC (0); Platelet Count 353 Thou/mm3 (140-440); RDW Standard Deviation 38.3 fL (36.4-46.3); Red Blood Count 3.58 Miln/mm3 (4.00-5.20); White Blood Count 11.8 Thou/mm3 (3.6-11.0)
[2024-07-25 06:50] LABS: Alanine Aminotransferase 10 U/L (10-49); Albumin, Serum 2.9 gm/dL (3.5-5.0); Albumin/Globulin Ratio 1.2 (1.2-2.2); Alkaline Phosphatase 152 U/L (46-116); Anion Gap 6 (7-16); Aspartate Amino Transferase < 8 U/L (0-34); BUN/Creatinine Ratio 5 Ratio (12-20); Bilirubin,Total 0.2 mg/dL (0.3-1.2); Blood Urea Nitrogen 6 mg/dL (9-23); Calcium 8.2 mg/dL (8.3-10.6); Calcium (Corrected) 9.1 mg/dL (8.5-10.1); Chloride 102 mMol/L (98-107); Creatinine (Component) 1.3 mg/dL (0.6-1.3); Estimated Creatinine Clearance 61.9 mL/min (>60); Globulin 2.5 gm/dL (2.3-3.5); Glucose 172 mg/dL (74-106); Magnesium 1.7 mg/dL (1.6-2.6); Osmolality,Calculated 271 (275-295); Phosphorous 2.6 mg/dL (2.4-5.1); Potassium 3.2 mMol/L (3.4-5.1); Sodium 135 mMol/L (136-145); Total Protein 5.4 gm/dL (5.7-8.2); eGFR 52 See Note
[2024-07-25] MEDS: INSULIN LISPRO (AdmeLOG) 1 UNIT/0.01 ML UNIT SC ×4 (07:42→21:09)
[2024-07-25] MEDS: INSULIN LISPRO (AdmeLOG) 1 UNIT/0.01 ML UNIT 3 UNIT SC (07:43)
[2024-07-25 08:00] VITALS: BP 147/87; PULSE 85; RESP 18; TEMP 36.5; O2SAT 99
[2024-07-25] MEDS: AMOXICILLIN/POT CLAV 500 MG TABLET PO ×2 (09:32→21:02)
[2024-07-25] MEDS: POTASSIUM CHLORIDE 20 mEq TABCR 40 MEQ PO (09:32)
[2024-07-25] MEDS: HYDROcodone/APAP 5/325 TABLET 1 TAB PO ×2 (09:32→18:23)
[2024-07-25] MEDS: INSULIN GLARGINE (Lantus) 5 UNIT/0.05 ML (PER 5 UNITS) 50 UNIT SC ×2 (09:33→21:09)
[2024-07-25] MEDS: PANTOPRAZOLE 40 MG TABLET PO (09:33)
[2024-07-25] MEDS: HEPARIN SOD INJ 5000 UNIT/ML VIAL SC ×2 (09:34→21:10)
[2024-07-25] MEDS: DOXYCYCLINE 100 MG TABLET PO ×2 (09:34→21:02)
--- NOTE | 2024-07-25 10:28 | XR_ITS ---
Examination: CT abdomen and pelvis without contrast. Coronal 3-D reconstructions. Sagittal 2-D reconstructions. Date and time of exam:July 25, 2024 1542 hours INDICATIONS: Onset severe abdominal pain today CTDI: vol (mGy): 10.5 DLP: (mGycm): 631 Technique: Axial images of the abdomen have been obtained, 3 mm slice thickness Intravenous contrast material has not been administered. Low dose protocols were performed. One or more of the following dose reduction techniques were used; automated exposure control, adjustment of the mA and/or KV according to patient size, use of iterative reconstruction technique. Findings: Diffuse fatty infiltration throughout the liver Absent gallbladder Spleen not enlarged No pancreatic or adrenal mass Moderate left renal parenchymal scar formation No renal or ureteral calculi, no hydronephrosis Normal appendix No bowel obstruction Intrauterine device satisfactory position Urinary bladder wall thickening up to 11 mm No bowel obstruction IMPRESSION: No renal or ureteral calculi, no hydronephrosis Moderate left renal parenchymal scar formation Normal appendix No bowel obstruction Urinary bladder wall thickening up to 11 mm, clinical correlation advised, differential would include cystitis
[2024-07-25 12:00] VITALS: BP 136/84; PULSE 78; RESP 17; TEMP 36.3; O2SAT 99
[2024-07-25] MEDS: INSULIN LISPRO (AdmeLOG) 1 UNIT/0.01 ML UNIT 4 UNIT SC ×2 (12:31→17:23)
[2024-07-25] MEDS: SODIUM CHLORIDE 0.9% 1000 ML 1,000 ML 999 ML IV (12:32)
--- NOTE | 2024-07-25 14:09 | ESPR_ITS ---
<Statement entered by Yinka Merritt MD - 07/25/24 16:47> Patient was seen and examined at bedside. Patient reported that she has abdominal pain that located at the epigastric area. It has not relation to food or drinking. She reported that the pain is constant however it is in and off. She denied any nausea or vomiting denied any constipation she reported 2 soft bowel movements yesterday. We ordered for her abdominal CT scan pending results. We noted that the patient serum creatinine continue to go up from 1.2 yesterday to 1.3 with a reasonable order for the patient 1 L bolus of IV fluids. She informed that she is doing fine with her feedings. For that reason we will keep the patient to monitor kidney functions. Talk to the pharmacy so we can prescribe the patient CGM she recommended to discharge the patient on Doxicom G7 as it covered by her insurance which she is already sent to her pharmacy. Tomorrow if the patient continues to improve she can be discharged and follow-up in outpatient settings for wound care. She will be discharged on Augmentin and doxycycline. - Patient's plan and care discussed with my attending, Dr. Bryon Merritt MD Internal Medicine PGY-2 Documentation for date of: 07/25/24 Subjective Subjective Interval history: Patient reports no diarrhea. She does report bilateral thoracic and lumbar back pain paraspinal. She states the pain started this morning. Patient reports eating all of her breakfast this morning and denies nausea/vomiting at this time. Patient states that she felt a lot better yesterday but today she felt like she was in more pain. Exam Vital Signs Temp Pulse Resp BP Pulse Ox O2 Del Method O2 Flow Rate 97.4 F 78 17 136/84 H 99 Room Air 4 07/25/24 12:00 07/25/24 12:00 07/25/24 12:00 07/25/24 12:00 07/25/24 12:00 07/25/24 12:07/24/24 08:00 Narrative Exam General: WDWN, NAD HEENT: EOMI, NC/AT CV: Normal rate and rhythm, no murmurs Pulm: Clear to auscultation bilaterally, no wheezes Abdomen: Mild tenderness palpation diffusely, nondistended, soft Back: No midline spinal tenderness, bilateral thoracic and lumbar muscular tenderness to palpation Extremities: Peripheral pulses intact, no significant edema Neuro: Moves all extremities spontaneously, A and O x 3 Psych cooperative, appropriate mood Objective Labs 07/26/24 05:09 07/26/24 05:09 Labs: Laboratory Results - last 24 hr 07/20/24 07/25/24 16:57 05:23 WBC 11.8 H RBC 3.58 L Hgb 10.3 L Hct 31.2 L MCV 87 MCH 28.8 MCHC 33.0 RDW Std Deviation 38.3 Plt Count 353 D Neut % (Auto) 70 Lymph % (Auto) 19 [place] % (Auto) 8 Eos % (Auto) 1 Baso % (Auto) 0 Neut # (Auto) 8.2 H Lymph # (Auto) 2.3 [place] # (Auto) 1.0 H Eos # (Auto) 0.1 Baso # (Auto) 0.0 Immature Gran # (Auto) 0.19 H Absolute Nucleated RBC 0.00 Immature Gran % 2 H Nucleated RBC % 0 Sodium 135 L Potassium 3.2 L Chloride 102 Carbon Dioxide 27.0 Anion Gap 6 L BUN 6 L Creatinine 1.3 Estim Creat Clear Calc 61.9 eGFR 52 L BUN/Creatinine Ratio 5 L Glucose 172 H D Calculated Osmolality 271 L Calcium 8.2 L Corrected Calcium 9.1 Phosphorus 2.6 Magnesium 1.7 Total Bilirubin 0.2 L AST < 8 ALT 10 Alkaline Phosphatase 152 H D Total Protein 5.4 L Albumin 2.9 L Globulin 2.5 Albumin/Globulin Ratio 1.2 Misc Test Result See Sep Rpt ABG Interpretation ABG results: 07/20/24 17:50 ABG pH 7.39 ABG pCO2 32 ABG pO2 90 ABG HCO3 19 L ABG O2 Saturation 98 ABG Base Excess -5 L Quality Measures Quality Measures none Assessment & Plan Assessment Current Active Medications: Generic Name Dose Route Start Last Admin Trade Name Freq PRN Reason Stop Dose Admin Acetaminophen 650 mg 07/20/24 17:35 Acetaminophen 325 Mg Tablet PO 08/19/24 17:34 Q4HR PRN PAIN SCALE 1-3 (mild Acetaminophen 650 mg 07/20/24 17:35 Acetaminophen Supp 650 Mg Supp [place] 08/19/24 17:34 Q4HR PRN PAIN SCALE 1-3 (mild Hydrocodone Bitart/Acetaminophen 1 tab 07/23/24 11:47 07/25/24 09:32 Hydrocodone/Apap 5/325 Tablet PO 07/28/24 11:46 1 tab Q6HR PRN Administration PAIN SCALE 4-10(Mod-Sev Amoxicillin/Clavulanate Potassium 500 mg 07/24/24 10:30 07/25/24 09:32 Amoxicillin/Pot Clav 500 Mg Tablet PO 07/31/24 10:29 500 mg BID FRANDY Administration Doxycycline Hyclate 100 mg 07/24/24 10:15 07/25/24 09:34 Doxycycline 100 Mg Tablet PO 07/31/24 10:14 100 mg BID FRANDY Administration Heparin Sodium (Porcine) 5,000 unit 07/20/24 21:00 07/25/24 09:34 Heparin Sod Inj 5000 Unit/Ml Vial SC 08/03/24 20:59 5,000 unit BID FRANDY Administration Insulin Glargine 50 unit 07/25/24 09:00 07/25/24 09:33 Insulin Glargine (Lantus) 5 Unit/0.05 Ml (Per 5 Units) SC 08/24/24 08:59 50 unit BID FRANDY Administration Insulin Human Lispro 0 unit 07/21/24 21:00 07/25/24 12:30 Insulin Lispro (Admelog) 1 Unit/0.01 Ml Unit SC 08/20/24 20:59 1 unit ACHS FRANDY Administration Protocol Insulin Human Lispro 4 unit 07/25/24 11:30 07/25/24 12:31 Insulin Lispro (Admelog) 1 Unit/0.01 Ml Unit SC 08/24/24 11:29 4 unit AC FRANDY Administration Metoclopramide HCl 10 mg 07/20/24 18:29 07/23/24 05:05 Metoclopramide Inj 5 Mg/Ml Vial 2 Ml IVP 08/19/24 18:28 10 mg Q6HR PRN Administration Nausea Protocol Morphine Sulfate 2 mg 07/23/24 13:48 Morphine Sulf Inj 10 Mg/Ml Vial IVP 07/25/24 17:34 Q4H PRN PAIN SCALE 7-10 (Severe Ondansetron HCl 4 mg 07/23/24 10:36 07/24/24 15:49 Ondansetron Inj 2 Mg/Ml Inj 2 Ml IV 08/19/24 17:34 4 mg Q6HR PRN Administration NAUSEA OR VOMITING Pantoprazole Sodium 40 mg 07/24/24 11:00 07/25/24 09:33 Pantoprazole 40 Mg Tablet PO 08/23/24 10:59 40 mg QDAY FRANDY Administration Simethicone 80 mg 07/22/24 09:24 07/23/24 21:39 Simethicone 80 Mg Chew PO 07/29/24 09:23 80 mg QID PRN Administration GAS Plan 43 year old female patient with PMHx significant for IDDM- non-compliant with her medications, Cholecystectomy, and Perianal abscess history admitted for management of DKA, cellulitis, and perianal abscess. #Perianal abscess-s/p I&D day 4 #Cellulitis #Abdominal discomfort Patient had I&D procedure on 07/21/2024 found with cellulitis of the left buttocks, was found to have perianal abcess with possible fistula to the anus found to have necrotic skin over the left buttock in 4 places on therefore required I&D of the left buttock Blood cultures negative in 48 hours, urine culture negative Patient reports having flatus and bowel movements - Antibiotic therapy switched to Augmentin and doxycycline - CT abdomen and pelvis non contrast - Morphine Q2h as needed. - simethicone for abdominal discomfort - on reglan - wound care on case - f/u abcess cx - Hydrocodone as needed - General surgery- Dr. Muse consulted, appreciate recommendations #Diabetic ketoacidosis-Resolved. #IDDM II A1c ordered but sent out as its probably to high for our lab to detect Patient administers 80 units of insulin, ran out weeks prior to admission Patient refused diabetic education - Contour next EZ glucometer at time of discharge for better glucose monitoring - sliding scale insulin - hypoglycemic protocol - Consider outpatient endocrinology follow up for candidacy for insulin pump #JESENIA #ATN- likely medication induced Baseline Cr 0.7->1.3, BUN 6 -D/C'd Vancomycin -NS bolus 1L -Encourage PO intake -Avoid nephrotoxic drugs The patient's plan was discussed with attending Dr. Slater and senior resident Dr. René Kiran DO PGY1 Internal Medicine Disposition: Medsurg Fluids: None Feeding: Carb consistent Thrombo prophylaxis: Heparin Gastric Ulcer prophylaxis: Pantoprazole CODE STATUS: Full code Attending Provider Attestation/Addendum Mary Bob DO, attest that I was physically present for the ibrahim portions of the service and evaluated the patient with the resident and I reviewed and discussed the case with the resident and agree with the resident's findings and plans of care as documented above Patient seen and evaluated this AM. She reports pain is well controlled with oral pain medicine. Counselled patient regarding uncontrolled diabetes and A1c of >14. Patient states that she ran out of insulin for 2 weeks prior to coming to the hospital. Explained to patient the importance of blood glucose control and wound healing. Patient verbalized understanding, Will order diabetic educatrion and provide patient with CGM sample. Patient states she is unable to change her dressing or have adequate help at home. May need SNF for frequent wound dressing changes. Anticipate DC within next 24-48hrs.
--- NOTE | 2024-07-25 15:19 | PC.CC ---
Request from Dr. Merritt to obtain CGM for patient. S/W patient at bedside who stated she has been using Dexcom G7 sensor samples with the blanco but her insurance denied the PA. PA submitted by PharmD and approved until 07/25/25. Updated MD and requested Rx for Dexcom G7 sensors #3.
[2024-07-25 16:00] VITALS: BP 138/77; PULSE 77; RESP 18; TEMP 36.4; O2SAT 99
--- NOTE | 2024-07-25 16:39 | PC.NURSE ---
Call from DR. Micha MD want to see patient before she discharges.
[2024-07-25 20:00] VITALS: BP 118/77; PULSE 96; RESP 17; TEMP 36.5; O2SAT 98
[2024-07-26] VITALS: BP 113/61; PULSE 86; RESP 17; TEMP 36.3; O2SAT 96
[2024-07-26] MEDS: HYDROcodone/APAP 5/325 TABLET 1 TAB PO ×4 (00:35→20:11)
[2024-07-26 04:00] VITALS: BP 148/91; PULSE 96; RESP 18; TEMP 36.1; O2SAT 99
[2024-07-26] MEDS: ACETAMINOPHEN 325 MG TABLET 650 MG PO (05:58)
[2024-07-26 06:00] VITALS: BMI 31.3
[2024-07-26 06:15] LABS: Basophils % (Auto) 0 % (0-2.5); Eosinophils # (Auto) 0.3 Thou/mm3 (0.0-0.5); Eosinophils % (Auto) 2 % (0-10); Hematocrit 31.7 % (36.0-46.0); Hemoglobin 10.6 g/dL (12.0-16.0); Immature Granulocytes % (Auto) 2 % (0-0); Immature Granulocytes Auto 0.19 Thou/mm3 (0.00-0.00); Lymphocytes # (Auto) 2.4 Thou/mm3 (1.0-4.8); Lymphocytes % (Auto) 21 % (10-50); Mean Corpuscular HGB Conc 33.4 g/dl (31.0-37.0); Mean Corpuscular Hemoglobin 29.3 pg (25.0-35.0); Mean Corpuscular Volume 88 fL (80-100); Monocytes % (Auto) 9 % (0-12); Neutrophils # (Auto) 7.6 Thou/mm3 (1.8-7.7); Neutrophils % (Auto) 66 % (37-80); Nucleated Red Blood Cell % 0 /100 WBC (0); Platelet Count 339 Thou/mm3 (140-440); RDW Standard Deviation 39.1 fL (36.4-46.3); Red Blood Count 3.62 Miln/mm3 (4.00-5.20); White Blood Count 11.5 Thou/mm3 (3.6-11.0)
[2024-07-26 07:06] LABS: Alanine Aminotransferase 11 U/L (10-49); Albumin, Serum 3.2 gm/dL (3.5-5.0); Albumin/Globulin Ratio 1.2 (1.2-2.2); Alkaline Phosphatase 138 U/L (46-116); Anion Gap 8 (7-16); Aspartate Amino Transferase 10 U/L (0-34); BUN/Creatinine Ratio 4 Ratio (12-20); Bilirubin,Total 0.2 mg/dL (0.3-1.2); Blood Urea Nitrogen 6 mg/dL (9-23); Calcium 8.5 mg/dL (8.3-10.6); Calcium (Corrected) 9.1 mg/dL (8.5-10.1); Carbon Dioxide 24.8 mMol/L (20.0-31.0); Chloride 104 mMol/L (98-107); Creatinine (Component) 1.5 mg/dL (0.6-1.3); Estimated Creatinine Clearance 53.6 mL/min (>60); Globulin 2.7 gm/dL (2.3-3.5); Glucose 134 mg/dL (74-106); Magnesium 1.7 mg/dL (1.6-2.6); Osmolality,Calculated 273 (275-295); Potassium 3.3 mMol/L (3.4-5.1); Sodium 137 mMol/L (136-145); Total Protein 5.9 gm/dL (5.7-8.2); eGFR 44 See Note
[2024-07-26 07:50] VITALS: BP 131/86; PULSE 88; RESP 18; TEMP 36.3; O2SAT 99
[2024-07-26] MEDS: INSULIN LISPRO (AdmeLOG) 1 UNIT/0.01 ML UNIT SC ×4 (09:22→20:24)
[2024-07-26] MEDS: INSULIN LISPRO (AdmeLOG) 1 UNIT/0.01 ML UNIT 4 UNIT SC ×3 (09:22→17:44)
[2024-07-26] MEDS: INSULIN GLARGINE (Lantus) 5 UNIT/0.05 ML (PER 5 UNITS) 50 UNIT SC ×2 (09:23→20:23)
[2024-07-26] MEDS: HEPARIN SOD INJ 5000 UNIT/ML VIAL SC ×2 (09:23→20:12)
[2024-07-26] MEDS: AMOXICILLIN/POT CLAV 500 MG TABLET PO ×2 (09:25→20:11)
[2024-07-26] MEDS: PANTOPRAZOLE 40 MG TABLET PO (09:25)
[2024-07-26] MEDS: DOXYCYCLINE 100 MG TABLET PO ×2 (09:25→20:12)
[2024-07-26] MEDS: POTASSIUM CHLORIDE 20 mEq TABCR 40 MEQ PO (09:25)
[2024-07-26] MEDS: Magnesium Sulfate 4 GM Ivpb 4 GM/50 ML BAG IV (09:26)
--- NOTE | 2024-07-26 10:11 | PD.SURPROG ---
Documentation for date of: 07/26/24 Subjective Subjective Brief History: History of present illness revealed that the patient has had this problem for the past 3 weeks. It started draining last Thursday and she came to the emergency room today. She was treated as an outpatient with antibiotics but did not improve. She also has poorly controlled diabetes. She has had a history of perianal abscess in the past in 2019 for which I performed incision and drainage Narrative: The patient's wound over the left buttock was inspected. She is still having considerable amount of pain and constant contamination of the stools and urine into the wound. Exam Vital Signs Temp Pulse Resp BP Pulse Ox O2 Del Method O2 Flow Rate 97.4 F 88 18 131/86 H 99 Room Air 4 07/26/24 07:50 07/26/24 07:50 07/26/24 07:50 07/26/24 07:50 07/26/24 07:50 07/26/24 07:50 07/24/24 08:00 Her vital signs are normal Routine Rectal Exam Comments: Examination of the left buttock showed 1 area which is exhibiting some grayish tissue due to necrosis Assessment & Plan Assessment Additional comments: Impression: Residual necrotic tissue at the base of the wound Plan Plan: We shall do a debridement at the bedside today Procedures Procedures Incision and drainage of the 4 abscesses left buttock
[2024-07-26 10:58] LABS: Collection Type, Urine Clean Catch
[2024-07-26 11:08] LABS: Bacteria,Urine Rare; Bilirubin,Urine Negative (Negative); Blood,Urine 1+ (Negative); Clarity,Urine Clear (Clear/Hazy); Color,Urine Colorless (Lt Yel-Yel); Glucose, Urine 2+ (Negative); Ketones,Urine Negative (Negative); Leukocyte Esterase,Urine Positive (Negative); Nitrite,Urine Negative (Negative); Protein,Urine Negative (Neg - Trace); RBC,Urine 1 /hpf (0-3); Specific Gravity,Urine 1.004 (1.001-1.035); Squamous Epithelial Cell,Urine 1 /hpf (0-5); Urobilinogen,Urine Negative mg/dL (0.0-1.0); WBC,Urine 4 /hpf (0-5)
[2024-07-26 11:13] LABS: Creatinine,Random Urine 22 mg/dL (30-125); Sodium,Urine Random 31.7 mMol/L (20.0-110.0)
--- NOTE | 2024-07-26 11:39 | ESPR_ITS ---
<Statement entered by Blaze Smith MD - 08/01/24 16:13> I reviewed above note and agree with findings and plans. I have also personally examined the patient with medicine team and went over assessment and plan with medical team including recruiting intern and resident physician. Documentation for date of: 07/26/24 Subjective Subjective Interval history: Patient seen today at the bedside found awake, alert, oriented x3. No overnight events reported. No active complaints at this time. Vital signs stable at this time. Labs significant for uptrending Creatinine. UA was ordered as well as urine Na and urine Creatinine. Started patient on maintainance fluids 125cc/hr and will reevaluate in the afternoon with f/u renal panel. General surgery, Dr. Muse will do bedside debridement today. Exam Vital Signs Temp Pulse Resp BP Pulse Ox O2 Del Method O2 Flow Rate 97.4 F 88 18 131/86 H 99 Room Air 4 07/26/24 07:50 07/26/24 07:50 07/26/24 07:50 07/26/24 07:50 07/26/24 07:50 07/26/24 07:50 07/24/24 08:00 Narrative Exam Physical Exam GENERAL: AAox3, some discomfort, uncomfortable HEENT: Moist mucosa. Eyes open, symmetrical, & clear CARDIO: No chest pain on palpation. Heart RRR, no obvious murmurs PULM: No noted coughing/dyspnea. Lungs CTA B/L, no R/W/R GI: Abdomen soft, nondistended, abdominal discomfort SKIN/MSK/EXT: Pedal pulses present B/L, packing in the 4 areas of left buttocks, covered NEURO: AAOx3, no focal neuro deficits Objective Labs 07/26/24 05:09 07/26/24 12:08 Labs: Laboratory Results - last 24 hr 07/26/24 07/26/24 05:09 10:20 WBC 11.5 H RBC 3.62 L Hgb 10.6 L Hct 31.7 L MCV 88 MCH 29.3 MCHC 33.4 RDW Std Deviation 39.1 Plt Count 339 Neut % (Auto) 66 Lymph % (Auto) 21 [place] % (Auto) 9 Eos % (Auto) 2 Baso % (Auto) 0 Neut # (Auto) 7.6 Lymph # (Auto) 2.4 [place] # (Auto) 1.0 H Eos # (Auto) 0.3 Baso # (Auto) 0.0 Immature Gran # (Auto) 0.19 H Absolute Nucleated RBC 0.00 Immature Gran % 2 H Nucleated RBC % 0 Sodium 137 Potassium 3.3 L Chloride 104 Carbon Dioxide 24.8 Anion Gap 8 BUN 6 L Creatinine 1.5 H Estim Creat Clear Calc 53.6 L eGFR 44 L BUN/Creatinine Ratio 4 L Glucose 134 H Calculated Osmolality 273 L Calcium 8.5 Corrected Calcium 9.1 Phosphorus 3.0 Magnesium 1.7 Total Bilirubin 0.2 L AST 10 ALT 11 Alkaline Phosphatase 138 H Total Protein 5.9 Albumin 3.2 L Globulin 2.7 Albumin/Globulin Ratio 1.2 Ur Collection Type Clean Catch Urine Color Colorless A Urine Clarity Clear Urine pH 6.0 Ur Specific [place] 1.004 Urine Protein Negative Urine Glucose (UA) 2+ A Urine Ketones Negative Urine Blood 1+ A Urine Nitrite Negative Urine Bilirubin Negative Urine Urobilinogen (Auto) Negative Ur Leukocyte Esterase Positive Urine RBC 1 Urine WBC 4 Ur Squamous Epith Cells 1 Urine Bacteria Rare Ur Random Creatinine 22 L Ur Random Sodium 31.7 ABG Interpretation ABG results: 07/20/24 17:50 ABG pH 7.39 ABG pCO2 32 ABG pO2 90 ABG HCO3 19 L ABG O2 Saturation 98 ABG Base Excess -5 L Quality Measures Quality Measures none Assessment & Plan Assessment Current Active Medications: Generic Name Dose Route Start Last Admin Trade Name Freq PRN Reason Stop Dose Admin Acetaminophen 650 mg 07/20/24 17:35 07/26/24 05:58 Acetaminophen 325 Mg Tablet PO 08/19/24 17:34 650 mg Q4HR PRN Administration PAIN SCALE 1-3 (mild Acetaminophen 650 mg 07/20/24 17:35 Acetaminophen Supp 650 Mg Supp [place] 08/19/24 17:34 Q4HR PRN PAIN SCALE 1-3 (mild Hydrocodone Bitart/Acetaminophen 1 tab 07/23/24 11:47 07/26/24 06:31 Hydrocodone/Apap 5/325 Tablet PO 07/28/24 11:46 1 tab Q6HR PRN Administration PAIN SCALE 4-10(Mod-Sev Amoxicillin/Clavulanate Potassium 500 mg 07/24/24 10:30 07/26/24 09:25 Amoxicillin/Pot Clav 500 Mg Tablet PO 07/31/24 10:29 500 mg BID FRANDY Administration Doxycycline Hyclate 100 mg 07/24/24 10:15 07/26/24 09:25 Doxycycline 100 Mg Tablet PO 07/31/24 10:14 100 mg BID FRANDY Administration Heparin Sodium (Porcine) 5,000 unit 07/20/24 21:00 07/26/24 09:23 Heparin Sod Inj 5000 Unit/Ml Vial SC 08/03/24 20:59 5,000 unit BID FRANDY Administration Magnesium Sulfate 4 gm in 50 mls @ 12.5 mls/hr 07/26/24 08:27 07/26/24 09:26 Magnesium Sulfate Ivpb IV 07/26/24 12:26 12.5 mls/hr X1 ONE Administration Sodium Chloride 1,000 mls @ 125 mls/hr 07/26/24 10:25 Ns IV 07/27/24 10:24 .Q8H FRANDY Insulin Glargine 50 unit 07/25/24 09:00 07/26/24 09:23 Insulin Glargine (Lantus) 5 Unit/0.05 Ml (Per 5 Units) SC 08/24/24 08:59 50 unit BID FRANDY Administration Insulin Human Lispro 0 unit 07/21/24 21:00 07/26/24 09:22 Insulin Lispro (Admelog) 1 Unit/0.01 Ml Unit SC 08/20/24 20:59 1 unit ACHS FRANDY Administration Protocol Insulin Human Lispro 4 unit 07/25/24 11:30 07/26/24 09:22 Insulin Lispro (Admelog) 1 Unit/0.01 Ml Unit SC 08/24/24 11:29 4 unit AC FRANDY Administration Metoclopramide HCl 10 mg 07/20/24 18:29 07/23/24 05:05 Metoclopramide Inj 5 Mg/Ml Vial 2 Ml IVP 08/19/24 18:28 10 mg Q6HR PRN Administration Nausea Protocol Ondansetron HCl 4 mg 07/23/24 10:36 07/24/24 15:49 Ondansetron Inj 2 Mg/Ml Inj 2 Ml IV 08/19/24 17:34 4 mg Q6HR PRN Administration NAUSEA OR VOMITING Pantoprazole Sodium 40 mg 07/24/24 11:00 07/26/24 09:25 Pantoprazole 40 Mg Tablet PO 08/23/24 10:59 40 mg QDAY FRANDY Administration Simethicone 80 mg 07/22/24 09:24 07/23/24 21:39 Simethicone 80 Mg Chew PO 07/29/24 09:23 80 mg QID PRN Administration GAS Plan 43 year old female patient with PMHx significant for IDDM- non-compliant with her medications, Cholecystectomy, and Perianal abscess history admitted for management of DKA, cellulitis, and perianal abscess. #Perianal abscess-s/p I&D day 5 #Cellulitis #Abdominal discomfort Patient had I&D procedure on 07/21/2024 found with cellulitis of the left buttocks, was found to have perianal abcess with possible fistula to the anus found to have necrotic skin over the left buttock in 4 places on therefore required I&D of the left buttock Blood cultures negative in 48 hours, urine culture negative Patient reports having flatus and bowel movements Abcess culture negative Patient having contamination of wound with stool, general surgeon, Dr. Muse will do bedside debridement - Antibiotic therapy switched to Augmentin and doxycycline - Bedside debridement today - Morphine Q2h as needed. - simethicone for abdominal discomfort - on reglan - wound care on case - Hydrocodone as needed - General surgery- Dr. Muse consulted, appreciate recommendations #Diabetic ketoacidosis-Resolved. #IDDM II A1c ordered but sent out as its probably to high for our lab to detect Patient administers 80 units of insulin, ran out weeks prior to admission Patient refused diabetic education - Contour next EZ glucometer at time of discharge for better glucose monitoring - sliding scale insulin - hypoglycemic protocol - Consider outpatient endocrinology follow up for candidacy for insulin pump #JESENIA #ATN- likely medication induced Baseline Cr 0.7->1.3, BUN 6 - NS @ 125cc/hr - Monitor renal panel - Encourage PO intake - Avoid nephrotoxic drugs Case discussed with my senior Dr. Martino PGY-[address] Sarah Linares MD PGY-1 Disposition: Medsurg Fluids: NS @125cc/hr Feeding: Carb consistent Thrombo prophylaxis: heparin Gastric Ulcer prophylaxis: Pantoprazole CODE STATUS: Full code Senior resident attestation: Patient evaluated and examined at the bedside, plan of care discussed with rest of the team including my attending physician, except as noted. Noted worsening serum creatinine the labs this a.m., JESENIA, BUN normal, less likely prerenal more likely renal etiology of JESENIA, possibly medication adverse event/vancomycin. Ordered urinalysis and urine electrolytes, FeNa 1.6, indeterminate. Urinalysis positive only for glucosuria 2+ and 1+ blood. Continue IV fluids and monitor urine output. Quresh PGY2
[2024-07-26 11:46] VITALS: BP 136/82; PULSE 88; RESP 18; TEMP 36.3; O2SAT 96
[2024-07-26] MEDS: SODIUM CHLORIDE 0.9% 1000 ML 1,000 ML 125 ML IV (12:32)
[2024-07-26 12:36] LABS: Albumin, Serum 2.9 gm/dL (3.5-5.0); Anion Gap 7 (7-16); BUN/Creatinine Ratio 4 Ratio (12-20); Blood Urea Nitrogen 6 mg/dL (9-23); Calcium 8.7 mg/dL (8.3-10.6); Calcium (Corrected) 9.6 mg/dL (8.5-10.1); Chloride 105 mMol/L (98-107); Creatinine (Component) 1.5 mg/dL (0.6-1.3); Estimated Creatinine Clearance 53.6 mL/min (>60); Glucose 125 mg/dL (74-106); Osmolality,Calculated 274 (275-295); Phosphorous 2.7 mg/dL (2.4-5.1); Potassium 3.5 mMol/L (3.4-5.1); Sodium 138 mMol/L (136-145); eGFR 44 See Note
--- NOTE | 2024-07-26 13:42 | CHAP ---
09:30 AM Visited by spiritual care volunteer Provided prayer for Patient.
[2024-07-26] MEDS: LIDOCAINE HCL 1% 20 ML VIAL 10 ML IM (13:46)
[2024-07-26 14:57] VITALS: BMI 31.3
--- NOTE | 2024-07-26 15:08 | PC.SS ---
Addendum entered by Mira Mack 07/26/24 15:18: Pt is on IV fluids and will have debridement today. Original Note: SS met with pt who explained she was contacted by the [facility] and will follow up with them for an appointment. SS has met with wound care nurse, Jailene who explained the Wound Clinic is appropriate for pt to follow up. SS has sent wound care referral to the Wound Clinic. has provided pt with The Community Resource List which contains the Wound Clinic's demographic information.
[2024-07-26 16:00] VITALS: BP 142/53; PULSE 86; RESP 18; TEMP 36.3; O2SAT 96
--- NOTE | 2024-07-26 16:15 | PC.NURSE ---
Patient had a debridement at bed side by Dr. Muse.
--- NOTE | 2024-07-26 17:30 | PC.NURSE ---
I have been answering questions and assisting patient continuosly through my shift. 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 I explained to her their is a referral with wound care and she will receive all information during her discharge. I gave her all results on her labs from today. I also had to explain to her I have 4 other patients under my care. Will continue to monitor patient.
--- NOTE | 2024-07-26 17:50 | PC.CM ---
Patient accepted by [facility]. Patient not medically stable for discharge.
--- NOTE | 2024-07-26 17:53 | PC.NURSE ---
Gave patient the cocktail to promote bowel movement. Will continue to monitor patient.
[2024-07-26 20:00] VITALS: BP 152/92; PULSE 102; RESP 19; TEMP 36.6; O2SAT 99
[2024-07-27] VITALS: BP 146/90; PULSE 92; RESP 18; TEMP 36.2; O2SAT 99
[2024-07-27] MEDS: ACETAMINOPHEN 325 MG TABLET 650 MG PO (00:39)
[2024-07-27] MEDS: SODIUM CHLORIDE 0.9% 1000 ML 1,000 ML 125 ML IV (00:42)
[2024-07-27] MEDS: HYDROcodone/APAP 5/325 TABLET 1 TAB PO ×2 (03:29→11:13)
[2024-07-27 04:00] VITALS: BP 122/77; PULSE 83; RESP 18; TEMP 36.9; O2SAT 95
[2024-07-27 05:50] LABS: Basophils % (Auto) 0 % (0-2.5); Eosinophils # (Auto) 0.3 Thou/mm3 (0.0-0.5); Eosinophils % (Auto) 2 % (0-10); Hematocrit 29.4 % (36.0-46.0); Hemoglobin 9.8 g/dL (12.0-16.0); Immature Granulocytes % (Auto) 2 % (0-0); Immature Granulocytes Auto 0.15 Thou/mm3 (0.00-0.00); Lymphocytes # (Auto) 1.7 Thou/mm3 (1.0-4.8); Lymphocytes % (Auto) 17 % (10-50); Mean Corpuscular HGB Conc 33.3 g/dl (31.0-37.0); Mean Corpuscular Hemoglobin 29.3 pg (25.0-35.0); Mean Corpuscular Volume 88 fL (80-100); Monocytes # (Auto) 0.9 Thou/mm3 (0.0-0.8); Monocytes % (Auto) 9 % (0-12); Neutrophils # (Auto) 7.2 Thou/mm3 (1.8-7.7); Neutrophils % (Auto) 71 % (37-80); Nucleated Red Blood Cell % 0 /100 WBC (0); Platelet Count 342 Thou/mm3 (140-440); RDW Standard Deviation 39.3 fL (36.4-46.3); Red Blood Count 3.35 Miln/mm3 (4.00-5.20); White Blood Count 10.3 Thou/mm3 (3.6-11.0)
[2024-07-27 06:00] VITALS: BMI 31.3
[2024-07-27 06:28] LABS: Alanine Aminotransferase 10 U/L (10-49); Albumin/Globulin Ratio 1.2 (1.2-2.2); Alkaline Phosphatase 134 U/L (46-116); Anion Gap 8 (7-16); Aspartate Amino Transferase < 10 U/L (0-34); BUN/Creatinine Ratio 5 Ratio (12-20); Bilirubin,Total 0.2 mg/dL (0.3-1.2); Blood Urea Nitrogen 8 mg/dL (9-23); Calcium 8.3 mg/dL (8.3-10.6); Calcium (Corrected) 9.1 mg/dL (8.5-10.1); Carbon Dioxide 25.4 mMol/L (20.0-31.0); Chloride 104 mMol/L (98-107); Creatinine (Component) 1.5 mg/dL (0.6-1.3); Estimated Creatinine Clearance 53.6 mL/min (>60); Globulin 2.5 gm/dL (2.3-3.5); Glucose 217 mg/dL (74-106); Magnesium 1.8 mg/dL (1.6-2.6); Osmolality,Calculated 279 (275-295); Phosphorous 3.2 mg/dL (2.4-5.1); Potassium 3.4 mMol/L (3.4-5.1); Sodium 137 mMol/L (136-145); Total Protein 5.5 gm/dL (5.7-8.2); eGFR 44 See Note
[2024-07-27 07:40] VITALS: BP 173/94; PULSE 90; RESP 18; TEMP 36.7; O2SAT 98
[2024-07-27 07:41] VITALS: BP 173/94; PULSE 92; RESP 16; TEMP 36.7; O2SAT 99
--- NOTE | 2024-07-27 07:51 | PC.CM ---
Addendum entered by Paty Alford RN 07/27/24 14:51: sent dc summary and dc orders to [facility] . Pending start of care date. Original Note: [facility] accepted the pt., Booked [facility]. Discharge date to be determined. Pending start of care date.
[2024-07-27] MEDS: INSULIN LISPRO (AdmeLOG) 1 UNIT/0.01 ML UNIT SC (08:19)
[2024-07-27] MEDS: INSULIN LISPRO (AdmeLOG) 1 UNIT/0.01 ML UNIT 4 UNIT SC ×2 (08:21→11:53)
[2024-07-27] MEDS: INSULIN GLARGINE (Lantus) 5 UNIT/0.05 ML (PER 5 UNITS) 50 UNIT SC (08:22)
--- NOTE | 2024-07-27 09:07 | PC.SS ---
Follow up note: Waiting for kidney functions to improve. Pt is on IV antibiotic. Pt will return home upon dc.
[2024-07-27] MEDS: HEPARIN SOD INJ 5000 UNIT/ML VIAL SC (09:24)
[2024-07-27] MEDS: DOXYCYCLINE 100 MG TABLET PO (09:25)
[2024-07-27] MEDS: PANTOPRAZOLE 40 MG TABLET PO (09:25)
[2024-07-27] MEDS: AMOXICILLIN/POT CLAV 500 MG TABLET PO (09:25)
--- NOTE | 2024-07-27 10:23 | ESDS_ITS ---
<Statement entered by Blaze Smith MD - 08/01/24 16:14> I reviewed above note and agree with findings and plans. I have also personally examined the patient with medicine team and went over assessment and plan with medical team including news internship and resident physician. Planned Discharge Date 07/27/24 DS: Providers Provider Date of admission: 07/20/24 17:35 Primary care physician: Letty Hanley PA-C Admitting Provider: Brittni Lee MD Attending Provider on Admission: Blaze Smith MD Consults: 07/20/24 15:47 Consult to General Surgery Stat Comment: Consulting Provider: Be Monae 07/20/24 17:14 Consult to General Surgery Stat Comment: Consulting Provider: Be Monae 07/20/24 19:26 Referral Infection Control Routine Comment: Reason for Infection Control Referral: Multiple ABX (>2) 07/20/24 19:29 Referral Wound Care Routine Comment: 07/22/24 09:38 Referral Nutritional Services Routine Comment: Patient needs CGM Instructions: Wounds 07/22/24 09:54 Referral OP Wound Healing Dept Routine Comment: Instructions: LEft buttock abcess Attending Provider on DC: Mehrdad Linares MD Discharging Provider: Mehrdad Linares MD DS: Diagnosis Problem List Completed Was Problem List Reviewed/Reconciled?: Yes Hospital Course Hospital Course Hospital course: 43 year old female patient with PMHx significant for insulin dependent diabetes mellitus, non-compliant with her medications, Cholecystectomy, and hx of perianal abcess came to the ED due to nausea, vomiting, abdominal pain and pain in her left buttock for a few weeks progressively getting worse. She was seen by her PCP and was given Antibiotics and did not improve, also reported running out of insulin for a few weeks. Patient was admitted to the ICU for DKA. During ICU stay patient was put on DKA protocol which included insulin drip, potassium replenished, aggressive IV hydration. After which patient was downgraded to the floors after DKA resolved. After which patient incision and drainage procedure with general surgeon, Dr. Muse. Patient was given IV antibiotics and later transitioned to PO antibiotics. Post-op pain was managed with morphine, reglan, simethicone. Wound care was provided during hospitalization for dressing changes. Patient should follow up with outpatient wound care clinic. Patient at this time is medically stable for discharge. Patient was instructed to follow-up with her PCP within 1 week of discharge. Recommend patient to have outpatient work up for anemia. Recommend strict glycemic control adn to follow up with primary care physician. Continue antibiotic therapy for 3 more days. Insulin dose was adjusted, recommend to take 50 units twice daily. Follow up with Wound clinic at [phone] [place] [address]. [id number]. If patient symptoms persist or worsen patient is instructed to return to the ED. Problem List: #Perianal abscess-s/p I&D #Cellulitis #Abdominal discomfort-improving #Diabetic ketoacidosis-Resolved. #IDDM II Case discussed with my senior Dr. Martino PGY-[address] Sarah Linares MD PGY-1 Senior resident attestation: Patient evaluated and examined at the bedside, plan of care discussed with rest of the team including my attending physician, except as noted. Gunner PGY2 Status at Discharge Functional status at discharge: independent ambulation Overall status at discharge: patient is progressing back to baseline Time Spent with Patient Time attestation: Total time spent providing and/or coordinating discharge services: Time spent: Greater than 30 minutes Home Health Home Health Referral Orders: 07/27/24 10:13 Home Health Referral Routine Reason For Exam: PT Home-Bound The patient must either because of illness or injury, need the aid of cain pportive devices such as crutches, canes, wheelchairs, and walkers; the use of special transportation; or the assistance of another person in order to leave their place of residence; OR have a con dition such that leaving his or her home is medically contraindicated. In addition, the patient also meets the following criteria: patient is normally unable to leave the home and leaving home requires considerable taxing effort. Addendum to Home Health Certification Practitioner's Certification: I certify that the patient has been under my care in the hospital and the care of attending physician (see below). We had a gqfr-[id number] encounter on (see date below). My clinical findings indicate that the patient is home bound per the above criteria and the Home Health Services noted in these orders are medically necessary. The primary reason for the gjmp-dz-[id number] encounter is related to the fact that the patient requires home health services. Date Certifying [id number] Physician Encounter: 07/20/24 Physician's Name who will Assume Oversight for Services: Letty Hanley Physician's Phone No.who will Assume Oversight for Service: CLASSROOM ASSISTANT - Community Resources: No PT to Evaluate: No PT to evaluate and provide a treatmnet plan to increase patient's mobility and strength. Wound Care: Yes Home Health RN - Wound Care Order: wound care per wound team IV Therapy: No RN Safety Evaluation: Yes RN to evaluate and create a plan of care that will produce positive outcomes. Palliative Treatment: No Palliative treatment and evaluate the need for hospice. Home Health Aide - Personal Care: No Home Health Aide to assist with any ADL's. Exam Vital Signs Temp Pulse Resp BP Pulse Ox O2 Del Method O2 Flow Rate 98.1 F 92 16 173/94 H 99 Room Air 4 07/27/24 07:41 07/27/24 07:41 07/27/24 07:41 07/27/24 07:41 07/27/24 07:41 07/27/24 07:41 07/24/24 08:00 Narrative Exam Physical Exam GENERAL: AAox3, some discomfort, uncomfortable HEENT: Moist mucosa. Eyes open, symmetrical, & clear CARDIO: No chest pain on palpation. Heart RRR, no obvious murmurs PULM: No noted coughing/dyspnea. Lungs CTA B/L, no R/W/R GI: Abdomen soft, nondistended, abdominal discomfort SKIN/MSK/EXT: Pedal pulses present B/L, packing in the 4 areas of left buttocks, covered NEURO: AAOx3, no focal neuro deficits Discharge Plan Plan Patient Disposition: Home w/HOME HEALTH Care Plan Goals: Follow up with Primary care physician with labs within 3-5 days of discharge. Recommend workup for Anemia on outpatient basis. Recommend strict glycemic control, follow up with primary doctor . Continue with antibiotic treatment as prescribed for 3 more days. Insulin dose is adjusted, recommend to take 50 units twice daily. If symptoms persist or worsen, return to the Emergency Department. Follow up with Wound Clinic at [phone] [place] [address]. [phone] Prescriptions/Referrals Prescriptions/Med Rec: New (DME) Dexcom G7 Sensor Device See Rx Instructions .Route Qty: 1 3RF Rx Instructions: 3 times a month acetaminophen 325 mg Tablet 650 mg PO Q4HR PRN (Reason: Pain Scale 1-3 (Mild) 5 Days Qty: 15 0RF hydrocodone-acetaminophen 5-325 mg Tablet 1 tab PO Q6HR MDD 3 tabs PRN (Reason: Pain Scale 4-10(Mod-Sev) 5 Days Qty: 15 0RF doxycycline hyclate 100 mg Tablet 100 mg PO BID 3 Days Qty: 6 0RF alcohol swabs Pads, Medicated 1 pad topical QID Qty: 200 0RF (DME) pen needle, diabetic [1st Tier Unifine Pentips Plus] 29 gauge x 1/2 needle See Rx Instructions .Route Qty: 100 0RF Rx Instructions: As directed amoxicillin 875 mg tablet 875 mg PO BID 3 Days Qty: 6 0RF insulin lispro [Admelog U-100 Insulin lispro] 100 unit/mL solution 5 unit subcut TID Qty: 10 2RF Continued Januvia 100 MG tablet 100 mg PO QDAY Qty: 0 Changed insulin glargine [Basaglar KwikPen U-100 Insulin] 100 unit/mL (3 mL) Insulin Pen 50 unit SUBCUT BID 30 Days Qty: 0 0RF Discontinued glimepiride [Amaryl] 1 MG tablet 1 mg PO QDAY Qty: 0 clindamycin HCl 300 mg capsule 300 mg PO TID 7 Days Qty: 21 0RF metronidazole 500 mg tablet 500 mg PO Q8H 7 Days Qty: 21 0RF ibuprofen 600 mg tablet 600 mg PO TID PRN (Reason: pain) Qty: 14 0RF Referrals: Letty Hanley PA-C [Primary Care Provider] - Patient/Caregiver Discharge Instructions Other Discharge Activity Instructions:: Follow up at [facility], [address] [place] [address]. Call [phone] for appointment. Wound care- may shower than change dressing daily and after bowel movements or if soiled with urine. -Wash hands with soap and water. Remove old dressing including packing strips. -Irrigate well with normal saline and pat dry. -Wash hands again. -Pack each wound with strip packing, starting at top of wound going in circular path filling in remaining cavity. -Cover each with dry gauze and secure with tape. Education Materials: CGM, Abscess Drainage, Discharge Instructions for Cellulitis, Discharge Instructions Wound ..., Preventing Surgical Site Infections Print Language: Russian Stand Alone Forms: Cande Award Info., Patient Portal Info Letter Discharge Order Discharge Orders: Discharge (Routine); Ordered 07/27/24 Ordered By: Mehrdad Linares Quality Discharge Quality Measures VTE prophylaxis
--- NOTE | 2024-07-27 10:40 | PC.NURSE ---
Orders for discharge received, and patient made aware, patient states she does no feel like she is well enough to leave, will not sign discharge paperwork. charge nurse and psychosocial rehabilitation counselor made aware. Dr. Sen made aware at 10:40. MD is rounding will visit patient at bedside.
--- NOTE | 2024-07-27 10:42 | CHAP ---
Patient was visited by a Spiritual Care Volunteer on 07/27/2024 between 09 and 09 and received comfort, encouragement, and/or prayer.
[2024-07-27 10:59] VITALS: BP 146/88; PULSE 91; RESP 16; TEMP 35.6; O2SAT 99
--- NOTE | 2024-07-27 12:15 | PC.WOUND ---
Made aware plan for discharge today. Pt seen at bedside, aware of discharge plan requesting family to come for bedside teaching and wound care. Pt informs me she is not ready for discharge because wounds are not healed, refusing to have family come for teaching. Attempted to educate wound healing process may be extended due to DM and individual healing which will require extended wound care- refusing to accept education. Pt to follow at [facility], discharge instructions updated. Supplies x 1 week left at bedside. RN aware of request to speak with MD. Will continue to assist as able.
[2024-07-27 15:52] VITALS: BP 144/88; PULSE 88; RESP 16; TEMP 36.2; O2SAT 99
--- NOTE | 2024-07-27 16:23 | PC.SS ---
S was informed by nurseShannan pt is requesting to speak with SS and is refusing to d/c home today. SS met with pt who states she resides alone and does not have help at home for couple of days. SS offered pt SNF placement and pt refused. SS offered [facility] referral and pt refused. SS offered to setup PCP appointment and pt refused stating she can setup her own appointment. Pt is requesting HH Services and her choice is [facility]. SS spoke to transfer nurseTirso and informed her pt is ready for d/c. Per Tirso Chun has accepted. Pt has the Community Resource List with [facility] phone# at bedside. Pt is aware to contact out pt Wound Clinic and follow up with them. Pt is also aware to contact [facility].
--- NOTE | 2024-07-30 07:59 | PC.CM ---
start of care date with [facility] is 07/31/24.
== END 2024-07-27 16:01 | disposition home health service (06) | DRG 951 ==
LOC: SERX 14:05 → SERHOLD 18:19 → S2SX 18:52 → S3NX 07-21 15:11
PROVIDERS: Nurse Practitioner Primary Care; Student in an Organized Health Care Education/Training Program; Surgery; Admitting Provider Internal Medicine; Emergency Provider Emergency Medicine; PCP Physician Assistant; Visit Provider Internal Medicine
PROC: 0J990ZZ Drainage of Buttock Subcutaneous Tissue and Fascia, Open Approach (ICD-10-PCS; principal; 2024-07-21 13:00)
DX: E11.10 Type 2 diabetes mellitus with ketoacidosis without coma (principal); Z79.4 Long term (current) use of insulin; Z91.148 Patient's other noncompliance with medication regimen for other reason; I10 Essential (primary) hypertension; R00.0 Tachycardia, unspecified; D64.89 Other specified anemias; K61.0 Anal abscess; L03.317 Cellulitis of buttock; R82.81 Pyuria; K21.9 Gastro-esophageal reflux disease without esophagitis; N17.0 Acute kidney failure with tubular necrosis
CPT/HCPCS: 36415; 36600; 71045; 72193; 74176; 76700; 80053; 80069; 80202; 81001; 81025; 82010; 82150; 82570; 82803; 83036; 83605; 83690; 83735; 84100; 84145; 84300; 84702; 85025; 85610; 87040; 87070; 87075; 87081; 87086; 87205; 93005; 93225; 96360; 96365; 96366; 96372; 99291; A4649; J1643; J1815; J1885; J2250; J2270; J2405; J2543; J2704; J2765; J3010; J3370; J3371; J3475; J3480; J3490; J7030; J7050; J7120; J7121; Q0162; Q9967; A9270; J1644

== ENCOUNTER → 2024-08-04 | Outpatient (CLI) | payer MEDICAID, SELFPAY | END | disposition home or self-care (01) | PROVIDERS: PCP Physician Assistant; Referring Provider Physician Assistant; Visit Provider Student in an Organized Health Care Education/Training Program | DX: L02.416 Cutaneous abscess of left lower limb (principal); S31.829A Unspecified open wound of left buttock, initial encounter; X58.XXXA Exposure to other specified factors, initial encounter; E66.9 Obesity, unspecified; E11.622 Type 2 diabetes mellitus with other skin ulcer; L98.412 Non-pressure chronic ulcer of buttock with fat layer exposed; Z79.4 Long term (current) use of insulin | CPT/HCPCS: 11042; 99213; A9270; G0463 ==

== ENCOUNTER → 2024-08-11 | Outpatient (CLI) | payer MEDICAID, SELFPAY | END | disposition home or self-care (01) | PROVIDERS: PCP Physician Assistant; Referring Provider Physician Assistant; Visit Provider Student in an Organized Health Care Education/Training Program | DX: L02.31 Cutaneous abscess of buttock (principal); S31.829A Unspecified open wound of left buttock, initial encounter; X58.XXXA Exposure to other specified factors, initial encounter; E66.9 Obesity, unspecified; E11.622 Type 2 diabetes mellitus with other skin ulcer; L98.412 Non-pressure chronic ulcer of buttock with fat layer exposed | CPT/HCPCS: 11042; A9270 ==

== ENCOUNTER → 2024-08-18 | Outpatient (CLI) | payer MEDICAID, SELFPAY | END | disposition home or self-care (01) | PROVIDERS: PCP Physician Assistant; Referring Provider Physician Assistant; Visit Provider Student in an Organized Health Care Education/Training Program | DX: L02.416 Cutaneous abscess of left lower limb (principal); S31.829A Unspecified open wound of left buttock, initial encounter; X58.XXXA Exposure to other specified factors, initial encounter; E66.9 Obesity, unspecified; E11.622 Type 2 diabetes mellitus with other skin ulcer; L98.412 Non-pressure chronic ulcer of buttock with fat layer exposed | CPT/HCPCS: 11042; 11045; A9270 ==

== ENCOUNTER → 2024-08-25 | Outpatient (CLI) | payer MEDICAID, SELFPAY | END | disposition home or self-care (01) | LOC: SWHD 09:06 | PROVIDERS: PCP Physician Assistant; Referring Provider Physician Assistant; Visit Provider Surgery | DX: L02.416 Cutaneous abscess of left lower limb (principal); S31.829A Unspecified open wound of left buttock, initial encounter; X58.XXXA Exposure to other specified factors, initial encounter; E66.9 Obesity, unspecified; E11.622 Type 2 diabetes mellitus with other skin ulcer; L98.412 Non-pressure chronic ulcer of buttock with fat layer exposed | CPT/HCPCS: 99213; A9270; G0463 ==

== ENCOUNTER → 2024-08-31 | Outpatient (CLI) | payer MEDICAID, SELFPAY | END | disposition home or self-care (01) | LOC: SWHD 12:39 | PROVIDERS: PCP Physician Assistant; Referring Provider Physician Assistant; Visit Provider Student in an Organized Health Care Education/Training Program | DX: L02.416 Cutaneous abscess of left lower limb (principal); S31.829A Unspecified open wound of left buttock, initial encounter; X58.XXXA Exposure to other specified factors, initial encounter; E66.9 Obesity, unspecified; L98.412 Non-pressure chronic ulcer of buttock with fat layer exposed | CPT/HCPCS: 10060; A9270 ==

== ENCOUNTER → 2024-09-01 | Outpatient (CLI) | payer MEDICAID, SELFPAY | END | disposition home or self-care (01) | PROVIDERS: PCP Physician Assistant; Referring Provider Physician Assistant; Visit Provider Student in an Organized Health Care Education/Training Program | DX: L02.416 Cutaneous abscess of left lower limb (principal); S31.829A Unspecified open wound of left buttock, initial encounter; X58.XXXA Exposure to other specified factors, initial encounter; E66.9 Obesity, unspecified; E11.622 Type 2 diabetes mellitus with other skin ulcer; L98.412 Non-pressure chronic ulcer of buttock with fat layer exposed | CPT/HCPCS: 99213; G0463 ==

== ENCOUNTER → 2024-09-02 | Outpatient (CLI) | payer MEDICAID, SELFPAY | END | disposition home or self-care (01) | PROVIDERS: PCP Physician Assistant; Referring Provider Physician Assistant; Visit Provider Student in an Organized Health Care Education/Training Program | DX: S31.829A Unspecified open wound of left buttock, initial encounter (principal); X58.XXXA Exposure to other specified factors, initial encounter; E66.9 Obesity, unspecified; E11.622 Type 2 diabetes mellitus with other skin ulcer; L98.412 Non-pressure chronic ulcer of buttock with fat layer exposed | CPT/HCPCS: 10060 ==

== ENCOUNTER → 2024-09-05 | Outpatient (CLI) | payer MEDICAID, SELFPAY | END | disposition home or self-care (01) | LOC: SWHD 11:37 | PROVIDERS: PCP Physician Assistant; Referring Provider Physician Assistant; Visit Provider Student in an Organized Health Care Education/Training Program | DX: S31.829A Unspecified open wound of left buttock, initial encounter (principal); X58.XXXA Exposure to other specified factors, initial encounter; E66.9 Obesity, unspecified; L98.412 Non-pressure chronic ulcer of buttock with fat layer exposed; L02.416 Cutaneous abscess of left lower limb; E11.622 Type 2 diabetes mellitus with other skin ulcer | CPT/HCPCS: 99213; G0463 ==

== ENCOUNTER → 2024-09-08 | Outpatient (CLI) | payer MEDICAID, SELFPAY | END | disposition home or self-care (01) | LOC: SWHD 10:17 | PROVIDERS: PCP Physician Assistant; Referring Provider Physician Assistant; Visit Provider Student in an Organized Health Care Education/Training Program | DX: L02.416 Cutaneous abscess of left lower limb (principal); S31.829A Unspecified open wound of left buttock, initial encounter; X58.XXXA Exposure to other specified factors, initial encounter; E66.9 Obesity, unspecified; L98.412 Non-pressure chronic ulcer of buttock with fat layer exposed | CPT/HCPCS: 11042; 11045; J3490; A9270 ==

== ENCOUNTER → 2024-09-13 | Outpatient (CLI) | payer MEDICAID, SELFPAY | END | disposition home or self-care (01) | LOC: SWHD 10:23 | PROVIDERS: PCP Physician Assistant; Referring Provider Physician Assistant; Visit Provider Student in an Organized Health Care Education/Training Program | DX: L02.416 Cutaneous abscess of left lower limb (principal); S31.829A Unspecified open wound of left buttock, initial encounter; X58.XXXA Exposure to other specified factors, initial encounter; L98.412 Non-pressure chronic ulcer of buttock with fat layer exposed; E66.9 Obesity, unspecified | CPT/HCPCS: 99213; G0463 ==

== ENCOUNTER → 2024-09-15 | Outpatient (CLI) | payer MEDICAID, SELFPAY | END | disposition home or self-care (01) | LOC: SWHD 13:45 | PROVIDERS: PCP Physician Assistant; Referring Provider Physician Assistant; Visit Provider Student in an Organized Health Care Education/Training Program | DX: L02.416 Cutaneous abscess of left lower limb (principal); S31.829A Unspecified open wound of left buttock, initial encounter; X58.XXXA Exposure to other specified factors, initial encounter; E66.9 Obesity, unspecified; L98.412 Non-pressure chronic ulcer of buttock with fat layer exposed | CPT/HCPCS: 10060; A9270 ==

== ENCOUNTER → 2024-09-22 | Outpatient (CLI) | payer MEDICAID, SELFPAY | END | disposition home or self-care (01) | PROVIDERS: PCP Physician Assistant; Referring Provider Physician Assistant; Visit Provider Student in an Organized Health Care Education/Training Program | DX: L02.416 Cutaneous abscess of left lower limb (principal); L98.412 Non-pressure chronic ulcer of buttock with fat layer exposed; S31.829A Unspecified open wound of left buttock, initial encounter; X58.XXXA Exposure to other specified factors, initial encounter; E66.9 Obesity, unspecified | CPT/HCPCS: 17250; A9270 ==

== ENCOUNTER → 2024-09-29 | Outpatient (CLI) | payer MEDICAID, SELFPAY | END | disposition home or self-care (01) | LOC: SWHD 14:25 | PROVIDERS: PCP Physician Assistant; Referring Provider Physician Assistant; Visit Provider Student in an Organized Health Care Education/Training Program | DX: L02.416 Cutaneous abscess of left lower limb (principal); L98.412 Non-pressure chronic ulcer of buttock with fat layer exposed; S31.829A Unspecified open wound of left buttock, initial encounter; X58.XXXA Exposure to other specified factors, initial encounter; E66.9 Obesity, unspecified | CPT/HCPCS: 99213; A9270; G0463 ==